=== PATIENT | female | born 1945 | race Caucasian/White ===

== ENCOUNTER → 2016-10-04 | Outpatient (CLI) | payer BC ==
[~2016-10-04] MED LIST: ALBUAER2 INH; ASCA500 PO; CEPH500C PO; CHOL100010 PO; CLBPO15 TOP; CLC100 PO; IBUP-103 PO; IBUP-1050 PO; LEVO100T7 PO; LEVO112T4 PO; LEVO1TAB33 PO; NYSTOIN TOP; PRED-301 PO; SYMIN INH; ULT50X PO; VNTHFA/IN INH
[2016-10-04 13:22] VITALS: BP 103/60; PULSE 98; TEMP 36.8; O2SAT 96
--- NOTE | 2016-10-04 17:01 | Radiation Oncology Follow-Up ---
Radiation Oncology Follow-Up Date of Visit Oct 04, 2016. Reason For Visit One-month follow-up Radiation Completion Date anus 05-18-2014, radioblation to lung 09-09-15, SBRT 12-12-15 & 08-29-16 Diagnosis (1) Anal cancer Status: Chronic Onset Date: 01/29/2014 Location: lung metastasis Histology Subtype: squamous cell carcinoma Stage: IV Permanent Comment: Rectal bleeding Findings an anal mass Status post biopsy revealing squamous cell carcinoma of the anus, stage [id number] stage II Status post completion of combined radiation and chemotherapy radiation completed 05/18/2014 received 6040 cGy Recheck biopsy benign 08/20/2014 Finding of lung metastasis 06/27/2015 Status post radioablation 09/09/2015 Finding of two right upper lobe nodules Status post completion of stereotactic body radiation therapy completed 2015 received 5000 cGy Recurrent disease initiation of chemotherapy Severe reaction with stomatitis, esophagitis, pancytopenia and hypokalemia Recheck CT 08/08/2016 reveals enlargement of the lingular pulmonary lesion Status post completion of stereotactic body radiation therapy to the left lingular pulmonary lesion. Radiation completed 08/29/2016 received 5000 cGy. Last Edited By: Dot Carlos on Aug 31, 2016 11:05 History of Present Illness is a 71-year-old female with a complex past medical history and multiple comorbidities. Earlier this year she noted blood on the toilet tissue and in the toilet bowl following bowel movements. Her bowels have always been very regular in the past with no prior history of rectal bleeding. She noted some change in the caliber of her stools. She had not had a screening colonoscopy. This has been discussed with her in the past but she has declined due to the severity of the prep. On 01/29/2014 she self-referred to Dr. Reyes Snowden a colorectal surgeon at [place]. At the time of his perianal exam there were no gross masses or lesions appreciated. However on rectal exam a 1-2 cm mass was noted in the anal canal along the left side. An anoscopy was performed which showed a friable ulcerated area in her left anal canal. This area was biopsied and found to be somewhat friable requiring packing of her anal canal. This was felt to be highly suspicious for an anal carcinoma. 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 Accession #: [id number]. The patient return to discuss these findings with Dr. Snowden on 02/05/2014. It was felt that a larger tissue sample was required to obtain an adequate tissue diagnosis. For that reason it was recommended that the patient be taken to the operating room. On 02/12/2014 she underwent an MRI of the pelvis for staging. The perirectal fascial planes appear intact with no evidence to suggest an infiltrative process of the perirectal fat. There is no significant perirectal scarlet changes. There is no pelvic or inguinal adenopathy. Patient was seen by Dr. Jomar Romero and on 02/15/2014 underwent a colonoscopy. This showed an ascending colon polyp which was sessile measuring 0.4 cm which was removed via hot snare. The previously identified anal cancer was again noted. The polypectomy of ascending colon polyp revealed a tubular adenoma. Case: [id number]. On March 01 patient underwent an exam under anesthesia and biopsy of the anal lesion. The biopsy tissue confirmed a moderately differentiated squamous cell carcinoma. Accession #: [id number]. A staging PET/ CT scan was ordered and performed on 02/17/2014. This study showed normal physiologic activity in the neck, chest and abdomen. In the pelvis no inguinal adenopathy was appreciated. No evidence of pelvic scarlet enlargement or uptake was appreciated. There was considerable focus of increased activity in the rectum with an SUV of 8.6. A true CT correlated mass was not identified. It was felt this could correlate with the area of prior biopsy and/or lesion. The decision was made to proceed with definitive chemoradiation. She was treated with IMRT to the anal lesion and lymph nodes. She started treatment on 03/25/2014 and completed on 05/17/2014. She did require 2 short treatment breaks or skin changes but was ultimately able to complete her her planned course of combined modality therapy. She has had episodes of abdominal discomfort and occasional tenderness and is also had episodes of rectal bleeding. These have now subsided. He was followed without evidence of local recurrence. A PET/CT scan was ordered for ongoing surveillance performed on 06/27/2015. Unfortunately this showed the interval development of FDG avid right-sided pulmonary nodules. There was a new FDG avid right lower lobe lesion measuring 1.1 cm with an SUV max of 3.8. A new 1 cm right upper lobe with central peribronchial nodule/node with SUV max of 4.9. There was a new FDG avid 0.5 cm right upper lobe pulmonary nodule with SUV max of 1.4. There were no FDG avid hepatic masses, adrenal masses or evidence of bony metastatic disease. The patient was seen by Dr. Dong Zee who underwent navigational fiberoptic bronchoscopy with radial ultrasound, transbronchial brushings, biopsies and washings. Transbronchial biopsies of the right upper lobe and right lower lobe however were negative for malignancy. Case: [id number]. The positive biopsy tissue was sent for review at [facility] and according to the patient they concurred with the diagnosis. The patient therefore underwent a CT-guided aspiration biopsy on 07/21/2015. Review of the tissue revealed malignant cells present. Given the clinical context these findings are felt to be consistent with a metastatic carcinoma from the patient's known anal primary. Case: [id number]. This tissue was reviewed at [facility]. They identified rare markedly atypical cells present, suspicious for malignancy. The slides were stained for P 40 and P 18 which stained be atypical cells strongly. This is supportive of HPV-related squamous cell carcinoma. However the cells were too few and scan to further characterize. The features however suggestive of metastasis from the patient's known and primary anal squamous cell carcinoma. [id number]. The patient was scheduled to be seen at [facility] by Dr. Stanton and by medical oncology. Dr. Stanton suggested that she hold off on her appointment with medical oncology. We have the patient seen by Dr. Pike for evaluation of an ablative therapy.. On September 09 she was scheduled for this procedure. A repeat CT scan of the chest was reportedly performed and the patient proceeded with the ablative therapy. She tolerated this treatment fairly well. She was followed with a CT scan of the chest with IV contrast on 10/14/2015. This showed pulmonary emphysema with no pleural effusion. An enlarging right upper lobe nodule measuring 1.7 cm was visualized on image number 1:15 out of 376. This measured 1.2 cm on a prior study performed in June 2015. Also noted was a 7 mm right upper lobe pulmonary nodule visualized on image 99 out of 376 that was similar to the prior study. A 1.3 cm right lower lobe pulmonary nodule was again noted. This demonstrated a linear track through the nodule with radiolucent halo and thin surrounding capsule consistent with prior nodular ablation. No mediastinal lymphadenopathy is seen. Upper abdomen is unremarkable. No lytic or blastic bony lesions are seen in the visualized chest and upper abdomen. Based on this report of an enlarging right upper lobe nodule that we were asked to see this patient for evaluation of the radiation options. Copies of these images have been sent to Dr. Stanton for his evaluation and hopefully also been forwarded to for his review on the option of additional ablative therapy. Final decision was that these 2 right upper lobe lesions would best be treated with stereotactic body radiation therapy. She returned to the high pressure cleaner and fiducial markers were placed. She underwent SBRT to the right lung lesions. This was completed 12/12/2015. She received 5000 cGy. She returned to medical oncology to discuss salvage chemotherapy. She sought second opinion to at [facility]. There was discussion of possible clinical trial. Ultimately decision was made to treat with 5-FU and cisplatin. This was a reduced dose due to prior mouth irritation with initial treatment. She unfortunately had a severe reaction to chemotherapy she developed mucositis and esophagitis. She had pancytopenia and hypokalemia. She was admitted and was hospitalized over a two-week time. She feels that the chemotherapy made her pre-existing neuropathy much worse. She was unable to keep food and had significant weight loss. Her usual weight is 123 pounds and she went down to 107. Since discharge she is steadily recuperating and is now gaining weight and is up to 115 pounds. She is continued follow-up with medical oncology. Due to her previous severe reaction to chemotherapy she did not wish to undergo any further treatment with chemotherapy. They did present to her treatment with nivolumab. She was in agreement to try this medication. She has been receiving this since May and it is given every 2 weeks. She does not have any complaints about the medication. The chemotherapy was a concern to her because of the potential effects on her already existing neuropathy. With this medication she does have a mild increase in shortness of breath. This is nothing severe. This does not keep her from her usual activities. She has now undergone recheck scanning. She is here for review of the studies. This study showed stable disease other than one lesion of the left lingula. Radiation therapy was stereotactic treatment was recommended. Status post completion of radiation therapy 08/29/2016 received 5000 cGy. Interim History She has been doing well over the past month. She denies any change in respiratory status. Her energy levels have improved. 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 She did see Dr. Vera in regards to the abnormality on the pelvic CT. He did not feel that she needed to undergo an endometrial biopsy. She does have some irregularity of her bowel movements. She takes Metamucil daily area and there is some difficulty with control of the sphincter. She denies any rectal bleeding. She has noted no masses in the perianal area. She's had no irritation of the skin. Her asthma is under control. She continues on her regular daily dose of prednisone. Allergies Coded Allergies: Amoxicillin (Verified Allergy, Severe, SLIGHT TONGUE SWELLING, 02/15/16) Home Medications Scheduled Ascorbic Acid (Vitamin C), 1 TAB PO DAILY Budesonide/Formoterol Fumarate (Symbicort 160-4.5 Mcg/Act), 2 PUFFS INH BID Cholecalciferol (Vitamin D), 2,000 UNITS PO DAILY Levothyroxine Sodium (Levothyroxine Sodium), 1 TAB PO DAILY Prednisone (Prednisone), 7.5 MG PO QAM Scheduled PRN Albuterol (Ventolin), 2 PUFFS INH Q4H PRN for SOB/Wheezing Review of Systems Gastrointestinal: Symptoms: WNL Oral: Symptoms: No Problems Respiratory: Symptoms: SOB With Exertion Urinary: Symptoms: Nocturia Comments: nocturia times 2 Skin: Other Skin Symptoms: " skin gets itchy " Physical Exam Vital Signs Date Time Temp Pulse Resp B/P Pulse Ox O2 Delivery O2 Flow Rate FiO2 10/04/16 13:22 36.8 98 20 103/60 96 Pain: Side: Bilateral Patient Pain Scale: 0 - 10 Initial Pain Intensity: 0.0 Fatigue: None General Appearance: no apparent distress Eyes: normal inspection, EOMI ENT: normal ENT inspection, hearing grossly normal Neck: no adenopathy Respiratory/Chest: lungs clear, no respiratory distress, no accessory muscle use, + decreased breath sounds Cardiovascular: regular rate, rhythm, no gallop, no murmur Abdomen: non tender, soft Anal / Rectum: There are no visible lesions in the perianal area. She has 1 small hemorrhoid. There is no telangiectasia. Mild hyperpigmentation. Extremities: no pedal edema Neurologic/Psychiatric: alert, normal mood/affect Skin: warm/dry Laboratory Studies Test 08/13/16 12:42 09/07/16 15:41 09/21/16 10:36 Magnesium Level 2.1 mg/dl (1.8-2.4) 2.1 mg/dl (1.8-2.4) Thyroid Stimulating Hormone (TSH) 1.340 uIu/ml (0.300-4.500) 2.080 uIu/ml (0.300-4.500) White Blood Count 5.34 K/uL (4.8-10.8) 5.97 K/uL (4.8-10.8) Red Blood Count 3.58 M/uL (4.2-5.4) 3.70 M/uL (4.2-5.4) Hemoglobin 11.2 g/dL (12.0-16.0) 11.8 g/dL (12.0-16.0) Hematocrit 34.5 % (37-47) 36.7 % (37-47) Mean Corpuscular Volume 96.4 fL (80-100) 99.2 fL (80-100) Mean Corpuscular Hemoglobin 31.3 pg (25-34) 31.9 pg (25-34) Mean Corpuscular Hemoglobin Concent 32.5 g/dl (32-36) 32.2 g/dl (32-36) Platelet Count 172 K/uL (130-400) 183 K/uL (130-400) Mean Platelet Volume 8.9 fL (7.4-10.4) 8.9 fL (7.4-10.4) Neutrophils (%) (Auto) 79.4 % 72.5 % Lymphocytes (%) (Auto) 13.1 % 12.6 % Monocytes (%) (Auto) 4.1 % 5.7 % Eosinophils (%) (Auto) 2.1 % 6.9 % Basophils (%) (Auto) 1.1 % 2.0 % Neutrophils # (Auto) 4.24 K/uL (1.4-6.5) 4.33 K/uL (1.4-6.5) Lymphocytes # (Auto) 0.70 K/uL (1.2-3.4) 0.75 K/uL (1.2-3.4) Monocytes # (Auto) 0.22 K/uL (0.11-0.59) 0.34 K/uL (0.11-0.59) Eosinophils # (Auto) 0.11 K/uL (0-0.5) 0.41 K/uL (0-0.5) Basophils # (Auto) 0.06 K/uL (0-0.2) 0.12 K/uL (0-0.2) RDW Standard Deviation 55.2 fL (36.4-46.3) 56.9 fL (36.4-46.3) RDW Coefficient of Variation 15.6 % (11.5-14.5) 15.7 % (11.5-14.5) Immature Granulocyte % (Auto) 0.2 % 0.3 % Immature Granulocyte # (Auto) 0.01 K/uL (0.00-0.02) 0.02 K/uL (0.00-0.02) Sodium Level 144 mmol/L (136-145) 145 mmol/L (136-145) Potassium Level 3.8 mmol/L (3.5-5.1) 3.8 mmol/L (3.5-5.1) Chloride Level 108 mmol/L (98-107) 110 mmol/L (98-107) Carbon Dioxide Level 26 mmol/L (21-32) 25 mmol/L (21-32) Anion Gap 10.0 mmol/L (3-11) 10.0 mmol/L (3-11) Blood Urea Nitrogen 19 mg/dl (7-18) 18 mg/dl (7-18) Creatinine 0.97 mg/dl (0.60-1.20) 1.00 mg/dl (0.60-1.20) Est Creatinine Clear Calc Drug Dose 48.2 ml/min 46.8 ml/min Estimated GFR () 68.6 66.1 Estimated GFR (Non- 59.2 57.0 BUN/Creatinine Ratio 20.0 (10-20) 18.1 (10-20) Random Glucose 101 mg/dl (70-99) 94 mg/dl (70-99) Calcium Level 9.2 mg/dl (8.5-10.1) 9.2 mg/dl (8.5-10.1) Total Bilirubin 0.3 mg/dl (0.2-1) 0.5 mg/dl (0.2-1) Aspartate Amino Transferase (AST) 33 U/L (15-37) 28 U/L (15-37) Alanine Aminotransferase (ALT) 32 U/L (12-78) 31 U/L (12-78) Alkaline Phosphatase 72 U/L (45-117) 61 U/L (45-117) Total Protein 6.8 gm/dl (6.4-8.2) 6.9 gm/dl (6.4-8.2) Albumin 3.5 gm/dl (3.4-5.0) 3.7 gm/dl (3.4-5.0) Globulin 3.3 gm/dl (2.5-4.0) 3.2 gm/dl (2.5-4.0) Albumin/Globulin Ratio 1.1 (0.9-2) 1.2 (0.9-2) Assessment & Plan Plan: We'll schedule for recheck scanning. A CT of the chest, abdomen, and pelvis will be ordered for the week of November 05. She'll be notified as to results. Continue regular follow-up with medical oncology and Dr. Emmanuel. She' ll otherwise return to our office in 6 months. Total Time In Follow-Up I spent 20 minutes speaking to the patient performing examination. I spent 15 minutes reviewing information in completing this note. Copy To David Cavazos D.O.; Dong Emmanuel M.D.
== END | disposition home or self-care (01) ==
LOC: C.ONC 13:14
PROVIDERS: ATTEND Radiology Radiation Oncology
DX: Z08 Encounter for follow-up examination after completed treatment for malignant neoplasm (principal); Z92.3 Personal history of irradiation; Z85.048 Personal history of other malignant neoplasm of rectum, rectosigmoid junction, and anus

== ENCOUNTER → 2016-11-07 | Outpatient (CLI) | payer BC ==
[~2016-11-07] MED LIST changes: +OPTIRAY 320 IV PRN
--- NOTE | 2016-11-07 09:13 | DIAGNOSTIC IMAGING REPORT ---
ABDOMEN AND PELVIS CT WITH IV AND ORAL CONTRAST CT DOSE: HISTORY: HX ANAL CA, MALIGNANCY TO LUNG TECHNIQUE: Multiaxial CT images of the abdomen and pelvis were performed following the use of intravenous and oral contrast. COMPARISON STUDY: 08/08/2016 FINDINGS: Unchanging pleural based nodule right base laterally. No additional basilar parenchymal nodules are present. The appearance of the abdomen pelvis is unchanged in the prior exam. Post therapeutic changes to the perianal soft tissues are again noted. Bowel pattern is nonobstructive. Liver spleen and pancreas remain unremarkable. Nonobstructing right renal calcification is unaltered. Degenerative changes of the osseous structures are present and nonprogressive. No lytic or blastic process is appreciated. IMPRESSION: Stable exam with no change in the prior study. Unchanging right basilar pulmonary nodularity. No acute process in the abdomen or pelvis with stable post therapeutic change of the perianal soft tissues Electronically signed by: Roland De La Vega M.D. 11/07/2016 9:12 AM Dictated Date/Time: 11/07/2016 9:08 AM
--- NOTE | 2016-11-07 09:20 | DIAGNOSTIC IMAGING REPORT ---
CHEST CT WITH CONTRAST CT DOSE: 481.92 mGy.cm HISTORY: Renal carcinoma HX ANAL CA, SECONDARY ENOC NCY TO LUNG TECHNIQUE: Multiaxial CT images of the chest were performed following the intravenous administration of contrast. COMPARISON: 08/08/2016 FINDINGS: Unchanging apical fibrotic change. Minimal scattered micronodularity is nonprogressive. The 12 mm nodule of the lingula has a current maximum dimension 9 mm. Nodular density peripheral aspect right lower lobe is essentially unchanged at 11 mm maximum dimension. It is not appear to be new or progressive a parenchymal nodularity. Mediastinal and hilar regions show no significant scarlet change. IMPRESSION: Unchanged pulmonary metastatic change compared to the prior study. 2. No evidence for new interval or progressive change. 3. Unchanging emphysematous and apical fibrotic change Electronically signed by: Roland De La Vega M.D. 11/07/2016 9:18 AM Dictated Date/Time: 11/07/2016 9:15 AM
== END | disposition home or self-care (01) ==
LOC: C.CTS 08:32
PROVIDERS: ATTEND Radiology Radiation Oncology
DX: C78.01 Secondary malignant neoplasm of right lung (principal); Z85.048 Personal history of other malignant neoplasm of rectum, rectosigmoid junction, and anus

== ENCOUNTER 2016-11-18 09:33 | Emergency (ER) | payer BC, OTHER ==
[~2016-11-18] VITALS: Ht 180.3 cm; Wt 55.6 kg
[~2016-11-18 09:33] MED LIST changes: -CEPH500C PO; -CLBPO15 TOP; -CLC100 PO; -IBUP-103 PO; -IBUP-1050 PO; -LEVO112T4 PO; -LEVO1TAB33 PO; -NYSTOIN TOP; -OPTIRAY 320 IV PRN; -ULT50X PO; -VNTHFA/IN INH
[2016-11-18 09:38] VITALS: TEMP 36.6; Ht 180.3 cm; Wt 55.6 kg
[2016-11-18] MEDS ORDERED: LEVO112T4 PO (10:19)
[2016-11-18] MEDS ORDERED: VNTHFA/IN INH (10:19)
[2016-11-18] MEDS ORDERED: NYSTOIN TOP (10:20)
[2016-11-18 10:27] LABS: URINE APPEARANCE CLEAR (CLEAR); URINE BILIRUBIN NEG (NEG); URINE COLOR YELLOW; URINE NITRITE NEG (NEG); URINE SPECIFIC GRAVITY <= 1.005 (1.000-1.030); UROBILINOGEN NEG (NEG)
[2016-11-18 10:31] LABS: BASO % 1.2 %; BASO ABS # 0.08 K/uL (0-0.2); COMPLETE YES; HEMATOCRIT 37.9 % (37-47); IG% 0.3 %; LYMPH % 11.6 %; LYMPH ABS # 0.79 K/uL (1.2-3.4); MEAN CELL VOLUME 97.2 fL (80-100); MEAN CORPUSCULAR HEMOGLOBIN 31.8 pg (25-34); MEAN CORPUSCULAR HGB CONC 32.7 g/dl (32-36); MONO % 4.5 %; NEUT % 75.4 %; PLATELET COUNT 209 K/uL (130-400); WHITE BLOOD COUNT 6.83 K/uL (4.8-10.8)
[2016-11-18 10:37] LABS: MANUAL MICROSCOPIC REQUIRED? NO; REVIEW REQ? NO; URINE EPITHELIAL CELL AUTO 0-5 /lpf (0-5); ZZUR CULT IF INDIC CLEAN CATCH NO
[2016-11-18 10:47] LABS: BUN/CREATININE RATIO 20.5 (10-20); CALCIUM 9.4 mg/dl (8.5-10.1); CREATININE 0.95 mg/dl (0.60-1.20); POTASSIUM 3.9 mmol/L (3.5-5.1)
[2016-11-18] MEDS ORDERED: CEPHALEXIN MONOHYDRATE 250 MG CAP PO ONE (11:45)
[2016-11-18] MEDS ORDERED: CEPH500C PO (11:48)
[2016-11-18 12:10] VITALS: BP 157/67; PULSE 80; O2SAT 97
--- NOTE | 2016-11-18 16:49 | EMERGENCY ROOM VISIT NOTE ---
History Report prepared by Bambi: Lusi Jauregui Under the Supervision of: Dr. David Sky D.O. First contact with patient: 09:45 Chief Complaint: URINARY SYMPTOMS Stated Complaint: UTI, DEHYDRATED Nursing Triage Summary: Triage ntoe: pt reports "when i urinate it takes about 5 seconds to get started and it is painful when i start but then when i am urinating it is not painful." pt reports urinary frequency. pt reports "i think i may be dehydrated i am lightheaded." History of Present Illness The patient is a 71 year old female who presents to the Emergency Room with complaints of urinary symptoms that began 1 week ago. She was having irritation to her vaginal area. She saw Dr. Acosta and was given a cream which helped. However, she than began to have slow starting urination that only cause her pain before the stream started. She is also urinating more frequently. She believes she may have a urinary tract infection. The patient was diagnosed with anal cancer three years ago that she is currently getting treatment for. She has only had one UTI before, but she does not remember what it felt like. She is mildly lightheaded. Patient denies headache, change in vision, fevers, chest pain, shortness of breath, nausea, vomiting, diarrhea, and melena. She denies feeling like she is going to pass out or if the room is spinning. Her last therapy for her cancer was two weeks ago. She denies any new weakness or numbness in arms or legs. Source of History: patient Onset: 1 week ago Position: other () Symptom Intensity: mild Quality: burning Timing: intermittent Associated Symptoms: + urinary symptoms, No SOB, No abdominal pain, No chest pain, No chills, No cough, No fevers, No headache, No melena, No nausea, No sorethroat, No vomiting Review of Systems See HPI for pertinent positives & negatives. A total of 10 systems reviewed and were otherwise negative. Past Medical & Surgical Medical Problems: (1) Anal cancer (2) Asthma (3) Mucositis (ulcerative) due to antineoplastic therapy (4) Volume depletion Family History Diabetes mellitus FH: gallbladder disease FH: heart disease Kidney stones Social History Smoking Status: Current Every Day Smoker Alcohol Use: none Drug Use: none Marital Status: Housing Status: lives alone Occupation Status: employed Current/Historical Medications Scheduled Budesonide/Formoterol Fumarate (Symbicort 160-4.5 Mcg/Act), 2 PUFFS INH BID Cephalexin Monohydrate (Keflex), 500 MG PO QID Levothyroxine Sodium (Levothyroxine Sodium), 1 TAB PO DAILY Nystatin-Triamcinolone (Nystatin/Triamcinolone), 1 APPLN TOP TID Prednisone (Prednisone), 7.5 MG PO QAM Scheduled PRN Albuterol Hfa (Ventolin Hfa), 2 PUFFS INH Q4 PRN for SOB/Wheezing Allergies Coded Allergies: Amoxicillin (Verified Allergy, Severe, SLIGHT TONGUE SWELLING, 02/15/16) Physical Exam Vital Signs Date Time Temp Pulse Resp B/P Pulse Ox O2 Delivery O2 Flow Rate FiO2 11/18/16 12:10 80 18 157/67 97 Room Air 11/18/16 11:00 73 18 147/73 97 Room Air 11/18/16 09:38 36.6 80 18 160/89 97 Room Air Physical Exam GENERAL: Ambulates without difficulty. Sitting up in bed. Alert, well appearing , well nourished, no distress, non-toxic EYE EXAM: normal conjunctiva OROPHARYNX: no exudate, no erythema, lips, buccal mucosa, and tongue normal and mucous membranes are moist NECK: supple, no nuchal rigidity, no adenopathy, non-tender LUNGS: Clear to auscultation. Normal chest wall mechanics HEART: no murmurs, S1 normal and S2 normal ABDOMEN: abdomen soft, non-tender, normo-active bowel sounds, no masses, no rebound or guarding. BACK: Back is symmetrical on inspection and there is no deformity, no midline tenderness, no CVA tenderness. SKIN: no rashes and no bruising UPPER EXTREMITIES: upper extremities are grossly normal. LOWER EXTREMITIES: No pitting edema. NEURO EXAM: Normal sensorium, cranial nerves II-XII intact, normal speech, no gross weakness of arms, no gross weakness of legs. Ambulates without difficulty. Medical Decision & Procedures Laboratory Results 11/18/16 10:15 Red Blood Count 3.90, Mean Corpuscular Volume 97.2, Mean Corpuscular Hemoglobin 31.8, Mean Corpuscular Hemoglobin Concent 32.7, Mean Platelet Volume 9.0, Neutrophils (%) (Auto) 75.4, Lymphocytes (%) (Auto) 11.6, Monocytes (%) (Auto) 4.5, Eosinophils (%) (Auto) 7.0, Basophils (%) (Auto) 1.2, Neutrophils # (Auto) 5.15, Lymphocytes # (Auto) 0.79, Monocytes # (Auto) 0.31, Eosinophils # (Auto) 0.48, Basophils # (Auto) 0.08 11/18/16 10:15 Test 11/18/16 10:15 White Blood Count 6.83 K/uL (4.8-10.8) Red Blood Count 3.90 M/uL (4.2-5.4) Hemoglobin 12.4 g/dL (12.0-16.0) Hematocrit 37.9 % (37-47) Mean Corpuscular Volume 97.2 fL (80-100) Mean Corpuscular Hemoglobin 31.8 pg (25-34) Mean Corpuscular Hemoglobin Concent 32.7 g/dl (32-36) Platelet Count 209 K/uL (130-400) Mean Platelet Volume 9.0 fL (7.4-10.4) Neutrophils (%) (Auto) 75.4 % Lymphocytes (%) (Auto) 11.6 % Monocytes (%) (Auto) 4.5 % Eosinophils (%) (Auto) 7.0 % Basophils (%) (Auto) 1.2 % Neutrophils # (Auto) 5.15 K/uL (1.4-6.5) Lymphocytes # (Auto) 0.79 K/uL (1.2-3.4) Monocytes # (Auto) 0.31 K/uL (0.11-0.59) Eosinophils # (Auto) 0.48 K/uL (0-0.5) Basophils # (Auto) 0.08 K/uL (0-0.2) RDW Standard Deviation 50.8 fL (36.4-46.3) RDW Coefficient of Variation 14.2 % (11.5-14.5) Immature Granulocyte % (Auto) 0.3 % Immature Granulocyte # (Auto) 0.02 K/uL (0.00-0.02) Urine Color YELLOW Urine Appearance CLEAR (CLEAR) Urine pH 7.0 (4.5-7.5) Urine Specific [place] <= 1.005 (1.000-1.030) Urine Protein NEG (NEG) Urine Glucose (UA) NEG (NEG) Urine Ketones NEG (NEG) Urine Occult Blood 1+ (NEG) Urine Nitrite NEG (NEG) Urine Bilirubin NEG (NEG) Urine Urobilinogen NEG (NEG) Urine Leukocyte Esterase NEG (NEG) Urine WBC (Auto) 1-5 /hpf (0-5) Urine RBC (Auto) 0-4 /hpf (0-4) Urine Hyaline Casts (Auto) 0 /lpf (0-5) Urine Epithelial Cells (Auto) 0-5 /lpf (0-5) Urine Bacteria (Auto) NEG (NEG) Anion Gap 10.0 mmol/L (3-11) Est Creatinine Clear Calc Drug Dose 48.4 ml/min Estimated GFR () 70.3 Estimated GFR (Non- 60.7 BUN/Creatinine Ratio 20.5 (10-20) Calcium Level 9.4 mg/dl (8.5-10.1) Total Bilirubin 0.4 mg/dl (0.2-1) Direct Bilirubin 0.1 mg/dl (0-0.2) Aspartate Amino Transf (AST/SGOT) 29 U/L (15-37) Alanine Aminotransferase (ALT/SGPT) 29 U/L (12-78) Alkaline Phosphatase 61 U/L (45-117) Total Protein 7.1 gm/dl (6.4-8.2) Albumin 3.7 gm/dl (3.4-5.0) Laboratory results per my review. Medications Administered Medications (Trade) Dose Ordered Sig/Moiz Route Start Time Stop Time Status Last Admin Dose Admin Cephalexin Monohydrate (Keflex Cap) 500 mg NOW ONCE PO 11/18/16 11:45 11/18/16 11:46 DC 11/18/16 11:45 500 MG Heparin Sodium (Porcine) (Heparin 100 Unit/ml 5ml Flush) 5 ml STK-MED ONCE .ROUTE 11/18/16 12:04 11/18/16 12:07 DC 11/18/16 12:04 5 ML ED Course ED COURSE: Vital signs were reviewed and showed hypertension. The patients medical record was reviewed The above diagnostic studies were performed and reviewed. ED treatments and interventions as stated above. 0945: The patient was evaluated in room B2. A complete history and physical examination was performed. 1140: I reassessed the patient at this time. She is completely back to her baseline. She has taken Keflex in the past. She would like to try that. 1145: Ordered Keflex Cap 500 mg PO 1152: Upon reevaluation, the patient is resting.I discussed my findings with the patient and she understands and agrees with the treatment plan. The patient remained stable while under my care. The patient appeared well at the time of discharge. Medical Decision Differential diagnoses includes but is not limited to gastritis, peptic ulcer disease, GERD, gallbladder disease, pancreatitis, small bowel obstruction, acute coronary syndrome, pericarditis, ischemic bowel, irritable bowel disease, irritable bowel syndrome, appendicitis, diverticulitis, malignancy, hernia, urinary tract infection, torsion, /ectopic , perforation, trauma, infectious. Patient is a 71-year-old female who presents the ER for urinary frequency associated with trouble starting her stream. She notes that this has been present for the past 4 hours. She denies any other complaints with the exception of feeling a little lightheaded. Labs show no significant leukocytosis or anemia. BMP along with LFTs, bilirubin were unremarkable. She has no abdominal pain. UA was clean with exception of slight hematuria. With her symptoms she was placed on Keflex instructed follow-up with her primary care doctor. She recently had a pelvic performed and notes that her irritation vaginally area is improving. Pelvic was repeated. She was given a small bolus of fluids that she has that she feels 100% better and back to her insulin. Patient was treated prophylactically with Keflex and was discharged to follow- up with her primary care doctor. Discussed with parent concerning signs and symptoms to watch out for. Parent was instructed to follow up with their PCP and discussed with the parent their option to return to the ED at anytime for persistent or worsening symptoms. The appropriate anticipatory guidance and out- patient management, including indications for return to the emergency department , were explained at length to the parent and understood. Impression Primary Impression: Symptoms involving urinary system Departure Information Dispostion Home / Self-Care Prescriptions Cephalexin Monohydrate (Keflex) 500 Mg Cap 500 MG PO QID, #12 CAP Prov: David Sky, 11/18/16 Referrals Dong Emmanuel M.D. (PCP) Forms HOME CARE DOCUMENTATION FORM, IMPORTANT VISIT INFORMATION Patient Instructions ED Dysuria Uncertain Cause, [facility] Additional Instructions Please follow up with your primary care doctor with in the next 24 hours. Any worsening of your symptoms, please return to the ED immediately. This includes fevers greater than 100.4, worsening pain, persistent nausea vomiting, weakness or numbness in arms or legs, or any other concerning signs or symptoms from your standpoint.
[2017-03-27] MEDS ORDERED: IBUP-103 PO (08:27)
[2017-04-25] MEDS ORDERED: CLBPO15 TOP (08:40)
== END 2016-11-18 12:20 | disposition home or self-care (01) ==
LOC: C.EDB 09:35
DX: R39.9 Unspecified symptoms and signs involving the genitourinary system (principal); C21.0 Malignant neoplasm of anus, unspecified; J45.909 Unspecified asthma, uncomplicated; F17.200 Nicotine dependence, unspecified, uncomplicated

== ENCOUNTER → 2017-02-11 | Outpatient (CLI) | payer BC ==
[~2017-02-11] MED LIST changes: -ALBUAER2 INH; -ASCA500 PO; +CEPH500C PO; -CHOL100010 PO; +CLBPO15 TOP; +CLC100 PO; +IBUP-103 PO; +IBUP-1050 PO; -LEVO100T7 PO; +LEVO112T4 PO; +LEVO1TAB33 PO; +NYSTOIN TOP; +ULT50X PO; +VNTHFA/IN INH
--- NOTE | 2017-02-11 11:48 | DIAGNOSTIC IMAGING REPORT ---
CHEST 2 VIEWS ROUTINE CLINICAL HISTORY: ANAL CARCINOMA neoplasm COMPARISON STUDY: 02/15/2016 FINDINGS: Potential recurrent nodule right suprahilar region. Possible additional nodular density pulmonary apical regions. Subsegmental atelectatic change left infrahilar region. IMPRESSION: Potential developing pulmonary nodularity associated with subsegmental atelectatic change. CT chest is recommended as follow-up. Electronically signed by: Roland De La Vega M.D. 02/11/2017 11:47 AM Dictated Date/Time: 02/11/2017 11:44 AM
== END | disposition home or self-care (01) ==
LOC: C.RAD 11:24
PROVIDERS: ATTEND Nurse Practitioner Family
DX: C21.0 Malignant neoplasm of anus, unspecified (principal)

== ENCOUNTER → 2017-03-06 | Outpatient (CLI) | payer BC ==
[~2017-03-06] MED LIST changes: +OPTIRAY 320 IV PRN
--- NOTE | 2017-03-06 10:14 | DIAGNOSTIC IMAGING REPORT ---
ABDOMEN AND PELVIS CT WITH IV AND ORAL CONTRAST CT DOSE: HISTORY: Lung carcinoma HX LUNG CA/ANAL CA C78.02, C78.01, C21.0 TECHNIQUE: Multiaxial CT images of the abdomen and pelvis were performed following the use of intravenous and oral contrast. COMPARISON STUDY: 2016 FINDINGS: Nodular density right base considered stable. No new basilar pulmonary nodules. Liver is uniform. Spleen pancreas are unremarkable. Small right renal cortical cyst unchanged. Kidneys enhance uniformly. Several small subcentimeter renal cortical cysts also stable. Nonobstructing lower pole right renal calcification unchanged. Nonobstructive bowel pattern. No significant abdominal or pelvic scarlet pathology. Slight bulkiness of the uterine cervix unchanged. Bladder is midline. It is relatively collapsed. Degenerative change of the osseous structures considered stable. IMPRESSION: 1. Stable evaluation of the abdomen and pelvis. 2. Unchanging nodularity right lung base. 3. No new or progressive lesion within the abdomen or pelvis. Electronically signed by: Roland De La Vega M.D. 03/06/2017 10:12 AM Dictated Date/Time: 03/06/2017 10:05 AM
--- NOTE | 2017-03-06 10:18 | DIAGNOSTIC IMAGING REPORT ---
CT SCAN OF THE CHEST WITH IV CONTRAST CLINICAL HISTORY: Lung cancer. Anal cancer. COMPARISON STUDY: Chest CT scans dated 11/07/2016 and 07/23/2014. TECHNIQUE: Following the IV administration of 117 of Optiray 320, CT scan of the chest was performed from the thoracic inlet to the upper abdomen. Images are reviewed in the axial, sagittal, and coronal planes. IV contrast was administered without complication. Automated dose control exposure was utilized. The examination is degraded by streak artifact from the left arm which could not be elevated above the chest. CT DOSE: 445.74 mGy.cm FINDINGS: Thyroid: Atrophic versus surgically absent. Thoracic aorta: There is mild atherosclerotic calcification of the thoracic aorta, which is normal in caliber and demonstrates 4-vessel variant arch anatomy. No dissection is seen. A right subclavian central venous infusion port is in place. Pulmonary vasculature: The pulmonary trunk is normal in caliber. There are no filling defects identified in the central pulmonary vessels to indicate pulmonary was. Note that this examination was not protocoled for evaluation of the pulmonary arteries. Heart: The heart is top normal in size and configuration, and without pericardial effusion. The coronary arteries are densely calcified. Lungs and pleural spaces: There is advanced emphysema and biapical scarring. No airspace consolidation or pleural effusion is identified. 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 A spiculated nodule abutting the pleural surface at the right lung base on image #204 is similar appearance to the 11/07/2016 examination and measures up to 1.5 cm. A 4 mm nodule in the superior segment of the left lower lobe on image #93 is unchanged. There is atelectasis/scarring identified in the lingula at the site of the previously identified nodule. The nodule itself is not clearly visualized. A metallic fiducial is again seen in the right upper lobe within a region of irregular soft tissue density. This is seen on axial image #95 and measures approximately 4 x 2 cm. This has significantly increased from 11/07/2016 appears to track along the bronchovascular bundles. Secretions are noted within the trachea and the left mainstem bronchus. Mediastinum: There is no mediastinal lymphadenopathy. Shanna: There are calcified hilar lymph nodes. No hilar adenopathy is seen. Axillae: There is no axillary lymphadenopathy. Upper abdomen: A punctate nonobstructing left renal calculus is noted. Partially imaged upper abdominal viscera is grossly normal in appearance. Bony thorax: The skeletal structures are osteopenic. There is degenerative change and hyperkyphosis in the thoracic spine. There are mild compression deformity is at T5, T8, T9, and T10. A large calcified posterior disc fragment is suggested at T10-T11. This may contribute to acquired compromise of the central canal. No lytic or blastic lesions are identified. Soft tissues: The patient is cachectic. IMPRESSION: 1. There is increasing irregular soft tissue in the right upper lobe around a metallic fiducial when compared to 11/07/2016. This appears to track centrally along the bronchovascular bundles. Although this could potentially represent radiation fibrosis if there has been interval radiation treatment the appearance is concerning for progression of disease. 2. There is linear atelectasis versus scarring/fibrosis identified in the lingula at the site of the previously characterized nodule. The lingular lesion seen previously is not visualized. 3. A right lower lobe lesion has not significantly changed from previous. 4. Advanced emphysema. There is no airspace consolidation typical for pneumonia or pleural effusion. 5. There is no mediastinal or hilar adenopathy. 6. Additional findings as above. Electronically signed by: Milton Sherman M.D. 03/06/2017 10:17 AM Dictated Date/Time: 03/06/2017 10:04 AM
== END | disposition home or self-care (01) ==
LOC: C.CTS 09:40
PROVIDERS: ATTEND Physician Assistant Medical
DX: C78.02 Secondary malignant neoplasm of left lung (principal); C21.0 Malignant neoplasm of anus, unspecified; C78.01 Secondary malignant neoplasm of right lung; J43.9 Emphysema, unspecified; I70.0 Atherosclerosis of aorta

== ENCOUNTER → 2017-03-08 | Outpatient (CLI) | payer BC ==
[~2017-03-08] MED LIST changes: -OPTIRAY 320 IV PRN
[2017-03-08 10:13] VITALS: BP 136/84; PULSE 83; TEMP 36.8; O2SAT 96
--- NOTE | 2017-03-08 12:57 | Radiation Oncology Follow-Up ---
Radiation Oncology Follow-Up Date of Visit Mar 08, 2017. Reason For Visit 6 month follow-up and for results of CT evaluation Radiation Completion Date anus 05-18-2014 , radioblation to lung 09-09-2015 & SBRT 12-12-15 & 08-29-16 Diagnosis (1) Anal cancer Status: Chronic Onset Date: 01/29/2014 Location: lung metastasis Histology Subtype: squamous cell carcinoma Stage: IV Permanent Comment: Rectal bleeding Findings an anal mass Status post biopsy revealing squamous cell carcinoma of the anus, stage [id number] stage II Status post completion of combined radiation and chemotherapy radiation completed 05/18/2014 received 6040 cGy Recheck biopsy benign 08/20/2014 Finding of lung metastasis 06/27/2015 Status post radioablation 09/09/2015 Finding of two right upper lobe nodules Status post completion of stereotactic body radiation therapy completed 2015 received 5000 cGy Recurrent disease initiation of chemotherapy Severe reaction with stomatitis, esophagitis, pancytopenia and hypokalemia Recheck CT 08/08/2016 reveals enlargement of the lingular pulmonary lesion Status post completion of stereotactic body radiation therapy to the left lingular pulmonary lesion. Radiation completed 08/29/2016 received 5000 cGy. Last Edited By: Dot Carlos on Aug 31, 2016 11:05 History of Present Illness is a 71-year-old female with a complex past medical history and multiple comorbidities. Earlier this year she noted blood on the toilet tissue and in the toilet bowl following bowel movements. Her bowels have always been very regular in the past with no prior history of rectal bleeding. She noted some change in the caliber of her stools. She had not had a screening colonoscopy. This has been discussed with her in the past but she has declined due to the severity of the prep. On 01/29/2014 she self-referred to Dr. Reyes Snowden a colorectal surgeon at [facility]. At the time of his perianal exam there were no gross masses or lesions appreciated. However on rectal exam a 1-2 cm mass was noted in the anal canal along the left side. An anoscopy was performed which showed a friable ulcerated area in her left anal canal. This area was biopsied and found to be somewhat friable requiring packing of her anal canal. This was felt to be highly suspicious for an anal carcinoma. 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 Accession #: [id number]. The patient return to discuss these findings with Dr. Snowden on 02/05/2014. It was felt that a larger tissue sample was required to obtain an adequate tissue diagnosis. For that reason it was recommended that the patient be taken to the operating room. On 02/12/2014 she underwent an MRI of the pelvis for staging. The perirectal fascial planes appear intact with no evidence to suggest an infiltrative process of the perirectal fat. There is no significant perirectal scarlet changes. There is no pelvic or inguinal adenopathy. Patient was seen by Dr. Jomar Romero and on 02/15/2014 underwent a colonoscopy. This showed an ascending colon polyp which was sessile measuring 0.4 cm which was removed via hot snare. The previously identified anal cancer was again noted. The polypectomy of ascending colon polyp revealed a tubular adenoma. Case: [id number]. On March 01 patient underwent an exam under anesthesia and biopsy of the anal lesion. The biopsy tissue confirmed a moderately differentiated squamous cell carcinoma. Accession #: [id number]. A staging PET/ CT scan was ordered and performed on 02/17/2014. This study showed normal physiologic activity in the neck, chest and abdomen. In the pelvis no inguinal adenopathy was appreciated. No evidence of pelvic scarlet enlargement or uptake was appreciated. There was considerable focus of increased activity in the rectum with an SUV of 8.6. A true CT correlated mass was not identified. It was felt this could correlate with the area of prior biopsy and/or lesion. The decision was made to proceed with definitive chemoradiation. She was treated with IMRT to the anal lesion and lymph nodes. She started treatment on 03/25/2014 and completed on 05/17/2014. She did require 2 short treatment breaks or skin changes but was ultimately able to complete her her planned course of combined modality therapy. She has had episodes of abdominal discomfort and occasional tenderness and is also had episodes of rectal bleeding. These have now subsided. He was followed without evidence of local recurrence. A PET/CT scan was ordered for ongoing surveillance performed on 06/27/2015. Unfortunately this showed the interval development of FDG avid right-sided pulmonary nodules. There was a new FDG avid right lower lobe lesion measuring 1.1 cm with an SUV max of 3.8. A new 1 cm right upper lobe with central peribronchial nodule/node with SUV max of 4.9. There was a new FDG avid 0.5 cm right upper lobe pulmonary nodule with SUV max of 1.4. There were no FDG avid hepatic masses, adrenal masses or evidence of bony metastatic disease. The patient was seen by Dr. Dong Zee who underwent navigational fiberoptic bronchoscopy with radial ultrasound, transbronchial brushings, biopsies and washings. Transbronchial biopsies of the right upper lobe and right lower lobe however were negative for malignancy. Case: [id number]. The positive biopsy tissue was sent for review at [facility] and according to the patient they concurred with the diagnosis. The patient therefore underwent a CT-guided aspiration biopsy on 07/21/2015. Review of the tissue revealed malignant cells present. Given the clinical context these findings are felt to be consistent with a metastatic carcinoma from the patient's known anal primary. Case: [id number]. This tissue was reviewed at [facility]. They identified rare markedly atypical cells present, suspicious for malignancy. The slides were stained for P 40 and P 18 which stained be atypical cells strongly. This is supportive of HPV-related squamous cell carcinoma. However the cells were too few and scan to further characterize. The features however suggestive of metastasis from the patient's known and primary anal squamous cell carcinoma. [id number]. The patient was scheduled to be seen at [facility] by Dr. Stanton and by medical oncology. Dr. Stanton suggested that she hold off on her appointment with medical oncology. We have the patient seen by Dr. Pike for evaluation of an ablative therapy.. On September 09 she was scheduled for this procedure. A repeat CT scan of the chest was reportedly performed and the patient proceeded with the ablative therapy. She tolerated this treatment fairly well. She was followed with a CT scan of the chest with IV contrast on 10/14/2015. This showed pulmonary emphysema with no pleural effusion. An enlarging right upper lobe nodule measuring 1.7 cm was visualized on image number 1:15 out of 376. This measured 1.2 cm on a prior study performed in June 2015. Also noted was a 7 mm right upper lobe pulmonary nodule visualized on image 99 out of 376 that was similar to the prior study. A 1.3 cm right lower lobe pulmonary nodule was again noted. This demonstrated a linear track through the nodule with radiolucent halo and thin surrounding capsule consistent with prior nodular ablation. No mediastinal lymphadenopathy is seen. Upper abdomen is unremarkable. No lytic or blastic bony lesions are seen in the visualized chest and upper abdomen. Based on this report of an enlarging right upper lobe nodule that we were asked to see this patient for evaluation of the radiation options. Copies of these images have been sent to Dr. Stanton for his evaluation and hopefully also been forwarded to for his review on the option of additional ablative therapy. Final decision was that these 2 right upper lobe lesions would best be treated with stereotactic body radiation therapy. 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 She underwent SBRT to the right lung lesions. This was completed 12/12/2015. She received 5000 cGy. She returned to medical oncology to discuss salvage chemotherapy. She sought second opinion to at [facility]. There was discussion of possible clinical trial. Ultimately decision was made to treat with 5-FU and cisplatin. This was a reduced dose due to prior mouth irritation with initial treatment. She unfortunately had a severe reaction to chemotherapy she developed mucositis and esophagitis. She had pancytopenia and hypokalemia. She was admitted and was hospitalized over a two-week time. She feels that the chemotherapy made her pre-existing neuropathy much worse. She was unable to keep food and had significant weight loss. Her usual weight is 123 pounds and she went down to 107. Since discharge she is steadily recuperating and is now gaining weight and is up to 115 pounds. She is continued follow-up with medical oncology. Due to her previous severe reaction to chemotherapy she did not wish to undergo any further treatment with chemotherapy. They did present to her treatment with nivolumab. She was in agreement to try this medication. She has been receiving this since May and it is given every 2 weeks. She does not have any complaints about the medication. The chemotherapy was a concern to her because of the potential effects on her already existing neuropathy. With this medication she does have a mild increase in shortness of breath. This is nothing severe. This does not keep her from her usual activities. She has now undergone recheck scanning. She is here for review of the studies. This study showed stable disease other than one lesion of the left lingula. Radiation therapy was stereotactic treatment was recommended. Status post completion of radiation therapy 08/29/2016 received 5000 cGy. Interim History Respiratory status is stable. She'll occasionally has increased shortness of breath when having a flareup of her allergies. She recently completed a steroid rescue. With the medication the difficulty with breathing resolved. She continues with "immunotherapy". She receives this every 2 weeks. The dose is adjusted due to general myalgias. She denies any difficulty with bowel movements. She had recheck CT scanning and presented today for results of these studies. Allergies Coded Allergies: Amoxicillin (Verified Allergy, Severe, SLIGHT TONGUE SWELLING, 02/15/16) Home Medications Scheduled Budesonide/Formoterol Fumarate (Symbicort 160-4.5 Mcg/Act), 2 PUFFS INH BID Levothyroxine Sodium (Levothyroxine Sodium), 1 TAB PO DAILY Prednisone (Prednisone), 7.5 MG PO QAM Scheduled PRN Albuterol Hfa (Ventolin Hfa), 2 PUFFS INH Q4 PRN for SOB/Wheezing Review of Systems Gastrointestinal: Symptoms: Rectal Bleeding GI Comments: had bleeding for several days when wipes, saturday and saturday , went away Oral: Symptoms: No Problems Respiratory: Symptoms: WNL Urinary: Symptoms: Frequency Comments: denies ester or burning, from immunothrapy Skin: Symptoms: No Problems Other Skin Symptoms: " nothing out of the ordinary " Physical Exam Vital Signs Date Time Temp Pulse Resp B/P (MAP) Pulse Ox O2 Delivery O2 Flow Rate FiO2 03/08/17 10:13 36.8 83 18 136/84 96 Pain: Side: Bilateral Patient Pain Scale: 0 - 10 Initial Pain Intensity: 0.0 General Appearance: no apparent distress Eyes: normal inspection, EOMI ENT: normal ENT inspection, hearing grossly normal Neck: no adenopathy, thyroid normal Respiratory/Chest: lungs clear, no respiratory distress, no accessory muscle use Cardiovascular: regular rate, rhythm, no gallop, no murmur Abdomen: non tender, soft Extremities: no pedal edema Neurologic/Psychiatric: alert, normal mood/affect Skin: warm/dry Laboratory Studies Test 12/31/16 09:55 01/15/17 11:18 01/25/17 13:28 02/11/17 10:57 Magnesium Level 2.4 mg/dl (1.8-2.4) Urine Color YELLOW Urine Appearance CLEAR (CLEAR) Urine pH 6.5 (4.5-7.5) Urine Specific [place] 1.015 (1.000-1.030) Urine Protein NEG (NEG) Urine Glucose (UA) NEG (NEG) Urine Ketones NEG (NEG) Urine Occult Blood NEG (NEG) Urine Nitrite NEG (NEG) Urine Bilirubin NEG (NEG) Urine Urobilinogen NEG (NEG) Urine Leukocyte Esterase TRACE (NEG) Urine WBC (Auto) 1-5 /hpf (0-5) Urine RBC (Auto) 5-10 /hpf (0-4) Urine Hyaline Casts (Auto) 0 /lpf (0-5) Urine Epithelial Cells (Auto) 10-20 /lpf (0-5) Urine Bacteria (Auto) NEG (NEG) Thyroid Stimulating Hormone (TSH) 0.594 uIu/ml (0.300-4.500) 0.532 uIu/ml (0.300-4.500) White Blood Count 7.73 K/uL (4.8-10.8) Red Blood Count 3.80 M/uL (4.2-5.4) Hemoglobin 11.9 g/dL (12.0-16.0) Hematocrit 37.5 % (37-47) Mean Corpuscular Volume 98.7 fL (80-100) Mean Corpuscular Hemoglobin 31.3 pg (25-34) Mean Corpuscular Hemoglobin Concent 31.7 g/dl (32-36) Platelet Count 209 K/uL (130-400) Mean Platelet Volume 8.6 fL (7.4-10.4) Neutrophils (%) (Auto) 81.7 % Lymphocytes (%) (Auto) 4.7 % Monocytes (%) (Auto) 9.2 % Eosinophils (%) (Auto) 3.1 % Basophils (%) (Auto) 0.9 % Neutrophils # (Auto) 6.32 K/uL (1.4-6.5) Lymphocytes # (Auto) 0.36 K/uL (1.2-3.4) Monocytes # (Auto) 0.71 K/uL (0.11-0.59) Eosinophils # (Auto) 0.24 K/uL (0-0.5) Basophils # (Auto) 0.07 K/uL (0-0.2) RDW Standard Deviation 50.5 fL (36.4-46.3) RDW Coefficient of Variation 14.0 % (11.5-14.5) Immature Granulocyte % (Auto) 0.4 % Immature Granulocyte # (Auto) 0.03 K/uL (0.00-0.02) Sodium Level 145 mmol/L (136-145) Potassium Level 3.9 mmol/L (3.5-5.1) Chloride Level 109 mmol/L (98-107) Carbon Dioxide Level 24 mmol/L (21-32) Anion Gap 12.0 mmol/L (3-11) Blood Urea Nitrogen 24 mg/dl (7-18) Creatinine 0.93 mg/dl (0.60-1.20) Est Creatinine Clear Calc Drug Dose 50.3 ml/min Estimated GFR () 72.2 Estimated GFR (Non- 62.3 BUN/Creatinine Ratio 25.3 (10-20) Random Glucose 93 mg/dl (70-99) Calcium Level 9.2 mg/dl (8.5-10.1) Total Bilirubin 0.5 mg/dl (0.2-1) Aspartate Amino Transferase (AST) 35 U/L (15-37) Alanine Aminotransferase (ALT) 39 U/L (12-78) Alkaline Phosphatase 59 U/L (45-117) Lactate Dehydrogenase 317 U/L (84-246) Total Protein 6.9 gm/dl (6.4-8.2) Albumin 3.5 gm/dl (3.4-5.0) Globulin 3.4 gm/dl (2.5-4.0) Albumin/Globulin Ratio 1.0 (0.9-2) Test 02/25/17 14:06 02/26/17 00:00 White Blood Count 6.20 K/uL (4.8-10.8) Red Blood Count 3.71 M/uL (4.2-5.4) Hemoglobin 11.9 g/dL (12.0-16.0) Hematocrit 37.1 % (37-47) Mean Corpuscular Volume 100.0 fL (80-100) Mean Corpuscular Hemoglobin 32.1 pg (25-34) Mean Corpuscular Hemoglobin Concent 32.1 g/dl (32-36) Platelet Count 194 K/uL (130-400) Mean Platelet Volume 9.0 fL (7.4-10.4) Neutrophils (%) (Auto) 82.7 % Lymphocytes (%) (Auto) 5.0 % Monocytes (%) (Auto) 7.3 % Eosinophils (%) (Auto) 3.4 % Basophils (%) (Auto) 1.3 % Neutrophils # (Auto) 5.13 K/uL (1.4-6.5) Lymphocytes # (Auto) 0.31 K/uL (1.2-3.4) Monocytes # (Auto) 0.45 K/uL (0.11-0.59) Eosinophils # (Auto) 0.21 K/uL (0-0.5) Basophils # (Auto) 0.08 K/uL (0-0.2) RDW Standard Deviation 51.2 fL (36.4-46.3) RDW Coefficient of Variation 14.1 % (11.5-14.5) Immature Granulocyte % (Auto) 0.3 % Immature Granulocyte # (Auto) 0.02 K/uL (0.00-0.02) Sodium Level 146 mmol/L (136-145) Potassium Level 4.2 mmol/L (3.5-5.1) Chloride Level 111 mmol/L (98-107) Carbon Dioxide Level 27 mmol/L (21-32) Anion Gap 8.0 mmol/L (3-11) Blood Urea Nitrogen 24 mg/dl (7-18) Creatinine 0.98 mg/dl (0.60-1.20) Est Creatinine Clear Calc Drug Dose 47.7 ml/min Estimated GFR () 67.7 Estimated GFR (Non- 58.4 BUN/Creatinine Ratio 24.8 (10-20) Random Glucose 129 mg/dl (70-99) Calcium Level 9.6 mg/dl (8.5-10.1) Total Bilirubin 0.3 mg/dl (0.2-1) Aspartate Amino Transferase (AST) 36 U/L (15-37) Alanine Aminotransferase (ALT) 40 U/L (12-78) Alkaline Phosphatase 66 U/L (45-117) Lactate Dehydrogenase 347 U/L (84-246) Total Protein 6.5 gm/dl (6.4-8.2) Albumin 3.4 gm/dl (3.4-5.0) Globulin 3.1 gm/dl (2.5-4.0) Albumin/Globulin Ratio 1.1 (0.9-2) Urine Color YELLOW Urine Appearance CLEAR (CLEAR) Urine pH 6.5 (4.5-7.5) Urine Specific [place] 1.017 (1.000-1.030) Urine Protein NEG (NEG) Urine Glucose (UA) NEG (NEG) Urine Ketones NEG (NEG) Urine Occult Blood TRACE (NEG) Urine Nitrite NEG (NEG) Urine Bilirubin NEG (NEG) Urine Urobilinogen NEG (NEG) Urine Leukocyte Esterase NEG (NEG) Urine WBC (Auto) 1-5 /hpf (0-5) Urine RBC (Auto) 5-10 /hpf (0-4) Urine Hyaline Casts (Auto) 0 /lpf (0-5) Urine Epithelial Cells (Auto) 5-10 /lpf (0-5) Urine Bacteria (Auto) NEG (NEG) Additional Studies Patient: BASSEM DANIELS Address1: [address] [place] [address] DR Guajardo Rec: [id number] Address2: Acct ID: [id number] [facility] [place] Zip: [place] [address] Date: 1945 Sex: F Room/Bed: Ref Phy: Dong Emmanuel M.D. SC: C.CTS Att Phy: Dot Carlos PA-C Report #: [id number] Maria Eugenia Phy: Dong Emmanuel M.D. Test: APW Admit Phy: Pack Room Operator: AMBER Interpreting Phy: Roland De La Vega M.D. Diagnosis: HX LUNG CA/ANAL CA C78.02, C78.01, C21.0 Ordering Phy: Dot Carlos PA-C Service Date: 03/06/17 Admit Date: 03/06/17 MNE: [id number] CONF: DICTATED BY: Roland De La Vega M.D.]] CC: Dot Carlos PA-C Solic, John, M.D. Endcc: [~ rep ct add3]] ABDOMEN AND PELVIS CT WITH IV AND ORAL CONTRAST CT DOSE: HISTORY: Lung carcinoma HX LUNG CA/ANAL CA C78.02, C78.01, C21.0 TECHNIQUE: Multiaxial CT images of the abdomen and pelvis were performed following the use of intravenous and oral contrast. COMPARISON STUDY: 2016 FINDINGS: Nodular density right base considered stable. No new basilar pulmonary nodules. Liver is uniform. Spleen pancreas are unremarkable. Small right renal cortical cyst unchanged. Kidneys enhance uniformly. Several small subcentimeter renal cortical cysts also stable. Nonobstructing lower pole right renal calcification unchanged. Nonobstructive bowel pattern. No significant abdominal or pelvic scarlet pathology. Slight bulkiness of the uterine cervix unchanged. Bladder is midline. It is relatively collapsed. Degenerative change of the osseous structures considered stable. IMPRESSION: 1. Stable evaluation of the abdomen and pelvis. 2. Unchanging nodularity right lung base. 3. No new or progressive lesion within the abdomen or pelvis. Electronically signed by: Roland De La Vega M.D. 03/06/2017 10:12 AM Dictated Date/Time: 03/06/2017 10:05 AM Patient: BASSEM DANIELS Address1: [address] [place] [address] [facility] Rec: [id number] Address2: Acct ID: [id number] [facility] [place] Zip: [place] [address] Date: 1945 Sex: F Room/Bed: Ref Phy: Dong Emmanuel M.D. SC: C.CTS Att Phy: Dot Carlos PA-C Report #: [id number] Maria Eugenia Phy: Dong Emmanuel M.D. Test: CX Admit Phy: Pack Room Operator: AMBER Interpreting Phy: Milton Sherman M.D. Diagnosis: HX LUNG CA/ANAL CA C78.02, C78.01, C21.0 Ordering Phy: Dot Carlos PA-C Service Date: 03/06/17 Admit Date: 03/06/17 MNE: [id number] CONF: DICTATED BY: Milton Sherman M.D.]] CC: Dot Carlos PA-C Solic, John, M.D. Endcc: [~ rep ct add3]] CT SCAN OF THE CHEST WITH IV CONTRAST CLINICAL HISTORY: Lung cancer. Anal cancer. COMPARISON STUDY: Chest CT scans dated 11/07/2016 and 07/23/2014. TECHNIQUE: Following the IV administration of 117 of Optiray 320, CT scan of the chest was performed from the thoracic inlet to the upper abdomen. Images are reviewed in the axial, sagittal, and coronal planes. IV contrast was administered without complication. Automated dose control exposure was utilized. The examination is degraded by streak artifact from the left arm which could not be elevated above the chest. CT DOSE: 445.74 mGy.cm FINDINGS: Thyroid: Atrophic versus surgically absent. Thoracic aorta: There is mild atherosclerotic calcification of the thoracic aorta, which is normal in caliber and demonstrates 4-vessel variant arch anatomy. No dissection is seen. A right subclavian central venous infusion port is in place. Pulmonary vasculature: The pulmonary trunk is normal in caliber. There are no filling defects identified in the central pulmonary vessels to indicate pulmonary was. Note that this examination was not protocoled for evaluation of the pulmonary arteries. Heart: The heart is top normal in size and configuration, and without pericardial effusion. The coronary arteries are densely calcified. Lungs and pleural spaces: There is advanced emphysema and biapical scarring. No airspace consolidation or pleural effusion is identified. 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 A spiculated nodule abutting the pleural surface at the right lung base on image #204 is similar appearance to the 11/07/2016 examination and measures up to 1.5 cm. A 4 mm nodule in the superior segment of the left lower lobe on image #93 is unchanged. There is atelectasis/scarring identified in the lingula at the site of the previously identified nodule. The nodule itself is not clearly visualized. A metallic fiducial is again seen in the right upper lobe within a region of irregular soft tissue density. This is seen on axial image #95 and measures approximately 4 x 2 cm. This has significantly increased from 11/07/2016 appears to track along the bronchovascular bundles. Secretions are noted within the trachea and the left mainstem bronchus. Mediastinum: There is no mediastinal lymphadenopathy. Shanna: There are calcified hilar lymph nodes. No hilar adenopathy is seen. Axillae: There is no axillary lymphadenopathy. Upper abdomen: A punctate nonobstructing left renal calculus is noted. Partially imaged upper abdominal viscera is grossly normal in appearance. Bony thorax: The skeletal structures are osteopenic. There is degenerative change and hyperkyphosis in the thoracic spine. There are mild compression deformity is at T5, T8, T9, and T10. A large calcified posterior disc fragment is suggested at T10-T11. This may contribute to acquired compromise of the central canal. No lytic or blastic lesions are identified. Soft tissues: The patient is cachectic. IMPRESSION: 1. There is increasing irregular soft tissue in the right upper lobe around a metallic fiducial when compared to 11/07/2016. This appears to track centrally along the bronchovascular bundles. Although this could potentially represent radiation fibrosis if there has been interval radiation treatment the appearance is concerning for progression of disease. 2. There is linear atelectasis versus scarring/fibrosis identified in the lingula at the site of the previously characterized nodule. The lingular lesion seen previously is not visualized. 3. A right lower lobe lesion has not significantly changed from previous. 4. Advanced emphysema. There is no airspace consolidation typical for pneumonia or pleural effusion. 5. There is no mediastinal or hilar adenopathy. 6. Additional findings as above. Electronically signed by: Milton Sherman M.D. 03/06/2017 10:17 AM Dictated Date/Time: 03/06/2017 10:04 AM Assessment & Plan Plan: The test findings were reviewed with the patient. There is concern of possible recurrence in the right upper lobe. There is a increasing irregular soft tissue in the right upper lobe around the fiducial marker. This was reviewed in radiology by Dr. Rosado. The recommendation was for her to have a PET/CT to determine if the changes in the right upper lobe are metabolically active. If the area is active we will need to evaluate for possible radiation therapy. I also discussed with her that we would likely present her case at tumor board. We would also refer her to Dr. Ascencio for his opinion. We'll see her in follow-up immediately following the PET/CT for review of the findings. She continues with medical oncology. We will forward a copy of these results also to Dr. Cavazos. These results have also been sent to Dr. Emmanuel. Total Time In Follow-Up I spent 20 minutes speaking to the patient and performing examination. I spent 15 minutes reviewing information in completing this note Copy To David Cavazos D.O.; Dong Emmanuel M.D.; Manfred Ascencio MD
== END | disposition home or self-care (01) ==
LOC: C.ONC 10:03
PROVIDERS: ATTEND Physician Assistant Medical
DX: Z08 Encounter for follow-up examination after completed treatment for malignant neoplasm (principal); Z92.3 Personal history of irradiation; Z85.048 Personal history of other malignant neoplasm of rectum, rectosigmoid junction, and anus

== ENCOUNTER → 2017-03-18 | Outpatient (CLI) | payer BC ==
[~2017-03-18] MED LIST changes: -CEPH500C PO; -NYSTOIN TOP
--- NOTE | 2017-03-18 14:33 | DIAGNOSTIC IMAGING REPORT ---
PET/CT SKULL-THIGH CLINICAL HISTORY: Colorectal carcinoma. Lung carcinoma. COMPARISON STUDY: 06/27/2015, CT scan of the chest dated 03/06/2017 FINDINGS: The patient was injected with 11.9 mCi of F-18 labeled FDG. Following the standard induction phase, PET/CT scanning is performed from the skull base the upper thigh region. Activity within neck is felt to be physiologic. With the chest, there is intense focus of increased FDG activity fusing to a right hilar mass with SUV maximum of 8.3. There are minimally FDG avid airspace opacities peripheral to this mass. The findings are viewed as highly suspicious for neoplasm with possible postobstructive pneumonitis. There is a stable minimally FDG avid right lower lobe pulmonary nodule measuring 12 mm. This has an SUV maximum of 1.1. There are airspace opacities within the lingula with 1 moderate FDG avid focus with SUV maximum of 3. Hepatic activity is felt to be physiologic. Splenic activity is felt to be physiologic. There is physiologic urinary tract and bowel activity. There is no pathologic scarlet activity within either the abdomen or pelvis. There is no pathologic adrenal gland activity. There is a small an FDG avid focus within the anus with SUV maximum of 3.2. This remain stable. IMPRESSION: 1. Intense focus of increased FDG activity (2.9 cm) fusing to a right hilar mass with SUV maximum of 8.3. This should be presumed neoplastic unless proven otherwise. 2. Stable mildly FDG avid 12 mm right lower lobe pulmonary nodule 3. Subcentimeter FDG avid nodule within the lingula with SUV maximum of 3 4. Stable FDG avid focus within the anus with SUV maximum of 3.2 Electronically signed by: Zeke Mirza M.D. 03/18/2017 2:31 PM Dictated Date/Time: 03/18/2017 2:21 PM
== END | disposition home or self-care (01) ==
LOC: C.PET 11:16
PROVIDERS: ATTEND Physician Assistant Medical
DX: R91.1 Solitary pulmonary nodule (principal); C18.0 Malignant neoplasm of cecum

== ENCOUNTER → 2017-03-27 | Outpatient (CLI) | payer BC | END | disposition home or self-care (01) | LOC: C.CPL 09:24 | PROVIDERS: ATTEND Surgery | DX: R91.8 Other nonspecific abnormal finding of lung field (principal) ==

== ENCOUNTER → 2017-04-05 | Day surgery (SDC) | payer BC ==
[2017-03-27 08:28] VITALS: BMI 17.0
[~2017-04-05] VITALS: Ht 177.8 cm; Wt 53.6 kg
[~2017-04-05] MED LIST changes: +ATROPINE SULFATE 0.1 MG/ML 5ML SYR IV PRN; +CLINDAMYCIN PHOS 150 MG/ML 2 ML VIAL ONE; +DEXAMETHASONE SOD INJ 4 MG/ML VIAL ONE; +EpHEDrine SULFATE 50MG/5ML SYR ONE; +EpHEDrine SULFATE INJ 50 MG/ML AMP IV PRN; +FENTANYL CITRATE INJ 50 MCG/1 ML 2 ML VIAL IV PRN; +FENTANYL CITRATE INJ 50 MCG/1 ML 2 ML VIAL ONE; +GLYCOPYRROLATE INJ 0.2 MG/ML VIAL ONE; +HYDROCORTISONE SOD SUCCINATE 100 MG/2 ML VIAL ONE; +HYDROmorphone INJ 1 MG/ML SYR IV PRN; +LACTATED RINGER'S 1000ML 1,000 ML IV SCH; +LARYING-O-JET KIT (LTA) ONE; +LIDOCAINE HCL 2% 2 ML VIAL (20MG/ML) ONE; +MIDAZOLAM HCL 1 MG/ML 2ML VIAL ONE; +NEOSTIGMINE METHYLSULFATE 5 MG/5 ML SYR ONE; +ONDANSETRON INJ 2 MG/ML 2 ML VIAL IV PRN; +ONDANSETRON INJ 2 MG/ML 2 ML VIAL ONE; +PROPOFOL IV EMULSION 10 MG/ML 20 ML VIAL IV ONE; +ROCURONIUM BROMIDE 10 MG/ML 5 ML VIAL ONE
[2017-04-05 05:53] VITALS: BP 165/69; PULSE 77; TEMP 36.9; O2SAT 96; Ht 177.8 cm; Wt 53.6 kg
--- NOTE | 2017-04-05 07:08 | History & Physical Bridge Note ---
H&P Re-Evaluation Bridge Note: I have examined the patient, reviewed the History & Physical and in the interval since the performance of the History & Physical I have noted the following changes of clinical significance: No changes noted
--- NOTE | 2017-04-05 07:36 | Discharge Instructions ---
Discharge Instructions Date of Service Apr 05, 2017. Visit Reason for Visit: Multiple Pulmonary Nodules, 2ND Cancer Of Lung Discharge Discharge Diagnosis / Problem: Multiple Pulmonary Nodules, 2ND Cancer Of Lung Discharge Goals Goal(s): Learn about illness Activity Recommendations Activity Limitations: resume your previous activity (in 24 hours) Anesthesia . Post Anesthesia Instructions: If you have had General Anesthesia or IV Sedation: * Do not drive today. * Resume driving when surgeon permits. * Do not make important decisions or sign legal documents today. * Call surgeon for: 1. Temperature elevations greater than 101 degrees F. 2. Uncontrollable pain. 3. Excessive bleeding. 4. Persistent nausea and vomiting. 5. Medication intolerance (nausea, vomiting or rash). * For nausea and vomiting use only clear liquids such as: tea, soda, bouillon until nausea subsides, then gradually increase diet as tolerated. * If you have any concerns or questions, call your surgeon's office. If physician is unavailable and it is an emergency, call 911 or go to the nearest emergency room. . Instructions / Follow-Up Instructions / Follow-Up 1. You may cough up some blood. Call physician if excessive amount noted. 2. Keep your scheduled appointment with Dr. Ascencio on April 15, 2017 @ 9:30 am. Go to hospital 1 hour before appointment to get a chest x-ray. Diet Recommendations Recommended Home Diet: resume previous diet Pending Studies Studies pending at discharge: no Medical Emergencies . Who to Call and When: Medical Emergencies: If at any time you feel your situation is an emergency, please call 911 immediately. . Non-Emergent Contact Non-Emergency issues call your: Surgeon Call Non-Emergent contact if: you have a fever, your pain is not controlled . . "Provider Documentation" section prepared by Michele Bravo. .
--- NOTE | 2017-04-05 09:44 | Anesthesiology Progress Note ---
Anesthesia Post Op Note Date & Time Apr 05, 2017 at 09:44 Vital Signs Pain Intensity: 0 Vital Signs Past 12 Hours Date Time Temp Pulse Resp B/P (MAP) Pulse Ox O2 Delivery O2 Flow Rate FiO2 04/05/17 09:10 36.2 91 16 167/78 100 Mask 7 04/05/17 05:53 36.9 77 20 165/69 (101) 96 Notes Mental Status: alert / awake / arousable, participated in evaluation Pt Amnestic to Procedure: Yes Nausea / Vomiting: adequately controlled Pain: adequately controlled Airway Patency, RR, SpO2: stable & adequate BP & HR: stable & adequate Hydration State: stable & adequate Anesthetic Complications: no major complications apparent
--- NOTE | 2017-04-05 09:47 | DIAGNOSTIC IMAGING REPORT ---
CHEST ONE VIEW PORTABLE CLINICAL HISTORY: s/p FOB postoperative evaluation COMPARISON STUDY: 02/11/2017 FINDINGS: Interval development of a small left apical pneumothorax. Maximum pleural separation is 1.7 cm. Central catheter remains in superior vena cava. Parenchymal nodularity is stable. IMPRESSION: Small left apical pneumothorax with a maximum pleural separation of 1.7 cm. The above report was generated using voice recognition software. It may contain grammatical, syntax or spelling errors. Electronically signed by: Roland De La Vega M.D. 04/05/2017 9:46 AM Dictated Date/Time: 04/05/2017 9:43 AM
[2017-04-05 10:25] VITALS: BP 117/61; PULSE 70; TEMP 36.5; O2SAT 98
[2017-04-05 10:55] VITALS: BP 117/47; PULSE 73; O2SAT 99
[2017-04-05 11:25] VITALS: BP 135/62; PULSE 80; TEMP 36.5; O2SAT 95
--- NOTE | 2017-04-05 11:33 | DIAGNOSTIC IMAGING REPORT ---
CHEST ONE VIEW PORTABLE CLINICAL HISTORY: pneumothorax COMPARISON STUDY: 04/05/2017 9:36 AM FINDINGS: Stable left apical pneumothorax. No change in the prior study. Arm and composed of the study are similar. IMPRESSION: Small left apical pneumothorax having unchanging pleural separation compared to the prior study. The above report was generated using voice recognition software. It may contain grammatical, syntax or spelling errors. Electronically signed by: Roland De La Vega M.D. 04/05/2017 11:32 AM Dictated Date/Time: 04/05/2017 11:31 AM
--- NOTE | 2017-04-05 14:21 | OPERATIVE REPORT ---
DATE OF OPERATION: 04/05/2017 PREOPERATIVE DIAGNOSES: 1. Enlarging mass, right hilum. 2. Questionable inflammatory mass lingula. 3. 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 POSTOPERATIVE DIAGNOSES: 1. Questionable nonsmall cell lung carcinoma, right hilum. 2. Iatrogenic left pneumothorax. PROCEDURES: 1. Endobronchial ultrasound to evaluate lymph nodes (no biopsy done). 2. Navigational bronchoscopy with brushings and washings of lingular lesion left upper lobe. 3. Navigational bronchoscopy with brushes, forceps biopsy and multiple needle biopsies of right hilar mass. SURGEON: Dr. Ascencio. COOK FISH EGGS: Dong Lamar, respiratory therapy. ANESTHESIA: General anesthesia with endotracheal intubation. INDICATION FOR PROCEDURE AND FINDINGS: Ms. 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 One year later she was found to have lesions in her lungs and underwent a percutaneous needle biopsy which showed that the right side lesion was indeed metastatic disease. It was assumed the other masses were also malignant. She underwent radiofrequency catheter ablation of the right lower lobe lesion and SBRT of the right upper lobe and left upper lobe/lingular lesions. The patient did well until recently. She underwent a CT scan which showed enlargement of these masses. She underwent a PET scan which lit up the right hilar area which has grown dramatically since October. The right lower lobe mass which she had radiofrequency ablation is unchanged over the last 2 years. In addition, the lingular lesion appears worse, but also appears to be more of an infiltrate. She has been having a productive cough producing yellowish sputum, however I put her on antibiotics last week and she states that this has improved greatly. She is coughing very little up now. I did an endobronchial ultrasound. There were just no lymph nodes to biopsy. We carefully started on the left hilar area elected the level 11, 10, 4, even 2 as well as level 7 and just did not see anything large enough to even warrant a biopsy. I then did the same thing on the right side and looked at the level 11, 10, 7, 4 and 2. They just were not large enough to biopsy. In addition, there did not light up on the PET scan. I ended up not doing a biopsy. Attention was then turned towards the left upper lobe lesion and the navigational bronchoscopy was performed as well as the navigational bronchoscopy with multiple biopsies of the right hilar mass. She tolerated it well except she was noted to have small pneumothorax on the right which was surprising since we did not use any needles or forceps. At any rate, this was unchanged after 90 minutes or so and she looked very good, so we sent her home. PROCEDURE: The patient brought to the operating room and laid in supine position. General anesthesia induced and endotracheal intubation was performed. After appropriate timeout had been called and antibiotics given the endoscopic ultrasound bronchoscope was placed. There were no endobronchial lesions noted. She did have some slight erythema of the distal left mainstem bronchus at the bifurcation, but there were no lesions. There was white sputum which was not abundant. Ultrasound mode was then engaged and it could be seen after closely looking at the level 11, level 10, level 4 and even level 2 on the left including level 7, I really did not see a node that I felt comfortable biopsying as they were all very small. I then went on the right side and looked at the level 10, 11, 4 and 2 as well as 7 from the right side and again I was not impressive with any of these lymph nodes. As none of these were hypermetabolic on the PET scan, I elected to forego biopsy. Navigational probe was in place. After registering the airways I then went into the left upper lobe and then the lingular x-ray and I was able to come right down into this abnormality which we had marked. This was close to the periphery. I did not want to use a needle. I did use the radial ultrasound probe and saw some minor abnormalities, although not a solid mass that I was hoping. I then did a brush biopsy x3 gently. We then irrigated this out and got washings. These were sent for cultures as well as cytology. There was no significant bleeding. The other target was then selected and I went into the right lung and this was more central larger lesion on the right. I did brushings as well as forceps biopsy with touch prep. We saw no evidence of malignancy. We got into very little bleeding with this. I then positioned the navigational probe and then the biopsy catheter and biopsied this area multiple times. We did 13 separate needle biopsies from multiple directions and Dr. Chaitanya Wilcox was looking at these fine needle aspirations on a rapid on site evaluation and felt that we were dealing with a carcinoma. She also felt that that it was more containers sales representative of a non-small cell lung carcinoma and will have to wait for the permanent sections and cell blocks to see. We did get some bleeding. I irrigated this out in fact put a balloon into the apical segmental bronchus of the right upper lobe and held the balloon up for several minutes and this stopped the bleeding nicely. I then irrigated out both airways with no significant bleeding. We really did not lose much in the way of blood. I slowly withdrew the fiberoptic bronchoscope, we extubated the patient in the room. She did very well, looked fine, however x-ray showed a small pneumothorax on the left. We repeated this about 90 minutes later and if anything it appeared to be a bit smaller. She had good saturations on room air and I felt comfortable sending her home although I did give her my cell phone number to call me should any problems arise. She tolerated it well. I attest to the content of the Intraoperative Record and any orders documented therein. Any exception s are noted below.
== END | disposition home or self-care (01) ==
LOC: C.ACU 05:44
PROVIDERS: ATTEND Surgery
DX: C78.01 Secondary malignant neoplasm of right lung (principal); R91.8 Other nonspecific abnormal finding of lung field; J44.9 Chronic obstructive pulmonary disease, unspecified; E78.5 Hyperlipidemia, unspecified; E03.9 Hypothyroidism, unspecified; C78.00 Secondary malignant neoplasm of unspecified lung; Z85.048 Personal history of other malignant neoplasm of rectum, rectosigmoid junction, and anus; Z92.21 Personal history of antineoplastic chemotherapy; Z92.3 Personal history of irradiation; Z98.49 Cataract extraction status, unspecified eye; Z90.89 Acquired absence of other organs; Z80.3 Family history of malignant neoplasm of breast; Z83.3 Family history of diabetes mellitus; F17.200 Nicotine dependence, unspecified, uncomplicated; Z92.241 Personal history of systemic steroid therapy; M85.80 Other specified disorders of bone density and structure, unspecified site; G62.9 Polyneuropathy, unspecified

== ENCOUNTER → 2017-04-15 | Outpatient (CLI) | payer BC ==
[~2017-04-15] MED LIST changes: -ATROPINE SULFATE 0.1 MG/ML 5ML SYR IV PRN; -CLINDAMYCIN PHOS 150 MG/ML 2 ML VIAL ONE; -DEXAMETHASONE SOD INJ 4 MG/ML VIAL ONE; -EpHEDrine SULFATE 50MG/5ML SYR ONE; -EpHEDrine SULFATE INJ 50 MG/ML AMP IV PRN; -FENTANYL CITRATE INJ 50 MCG/1 ML 2 ML VIAL IV PRN; -FENTANYL CITRATE INJ 50 MCG/1 ML 2 ML VIAL ONE; -GLYCOPYRROLATE INJ 0.2 MG/ML VIAL ONE; -HYDROCORTISONE SOD SUCCINATE 100 MG/2 ML VIAL ONE; -HYDROmorphone INJ 1 MG/ML SYR IV PRN; -LACTATED RINGER'S 1000ML 1,000 ML IV SCH; -LARYING-O-JET KIT (LTA) ONE; -LIDOCAINE HCL 2% 2 ML VIAL (20MG/ML) ONE; -MIDAZOLAM HCL 1 MG/ML 2ML VIAL ONE; -NEOSTIGMINE METHYLSULFATE 5 MG/5 ML SYR ONE; -ONDANSETRON INJ 2 MG/ML 2 ML VIAL IV PRN; -ONDANSETRON INJ 2 MG/ML 2 ML VIAL ONE; -PROPOFOL IV EMULSION 10 MG/ML 20 ML VIAL IV ONE; -ROCURONIUM BROMIDE 10 MG/ML 5 ML VIAL ONE
--- NOTE | 2017-04-15 09:04 | DIAGNOSTIC IMAGING REPORT ---
TWO VIEW CHEST CLINICAL HISTORY: Pneumothorax. Lung cancer. FINDINGS: PA and lateral chest radiographs are compared to study dated 04/05/2017 and correlated with chest CT dated 03/06/2017. The PA view is degraded by patient rotation. The heart is enlarged and there is atherosclerotic calcification of the thoracic aorta. The pulmonary vasculature is noncongested. Emphysema and chronic interstitial thickening are similar to previous. A right suprahilar pulmonary lesion with metallic fiducials is similar to previous. There is no airspace consolidation typical for pneumonia or pleural effusion. There is no pneumothorax. Linear fibrosis in the lingula is unchanged. The skeletal structures are osteopenic. Degenerative change is seen throughout the thoracic spine. Mild compression deformities are noted. IMPRESSION: 1. No pneumothorax is identified on today's examination. 2. Cardiomegaly, emphysema, and a right suprahilar pulmonary lesion are similar to previous. 3. There is no evidence of superimposed airspace consolidation or pleural effusion. Electronically signed by: Milton Sherman M.D. 04/15/2017 9:03 AM Dictated Date/Time: 04/15/2017 9:01 AM
== END | disposition home or self-care (01) ==
LOC: C.RAD 08:45
PROVIDERS: ATTEND Physician Assistant
DX: J93.9 Pneumothorax, unspecified (principal); I51.7 Cardiomegaly; J43.9 Emphysema, unspecified; R91.1 Solitary pulmonary nodule

== ENCOUNTER → 2017-04-18 | Outpatient (CLI) | payer BC ==
--- NOTE | 2017-04-18 09:29 | DIAGNOSTIC IMAGING REPORT ---
NUCLEAR MEDICINE QUANTITATIVE LUNG SCAN CLINICAL HISTORY: C34.90 Non-small cell lung [id number] COMPARISON STUDY: No previous studies for comparison. FINDINGS: The patient was injected with 5.8 mCi of technetium 99m MAA. The perfusion pattern is heterogeneous bilaterally. The right lung receives 55% of perfusion. The left lung receives 45% of perfusion. The right upper lung zone receives 10% of global perfusion, the right middle lung zone receives 29% of global perfusion, and the right lower lung zone received 16% of global perfusion. The left upper lung zone received 13% of global perfusion, the left middle lung zone received 23% of global perfusion, and the left lower lung zone received 9% of global perfusion. IMPRESSION: Quantitative perfusion scan as described above. Electronically signed by: Zeke Mirza M.D. 04/18/2017 9:28 AM Dictated Date/Time: 04/18/2017 9:17 AM
== END | disposition home or self-care (01) ==
LOC: C.NUCL 08:45
PROVIDERS: ATTEND Surgery
DX: C34.90 Malignant neoplasm of unspecified part of unspecified bronchus or lung (principal)

== ENCOUNTER → 2017-04-24 | Outpatient (CLI) | payer BC ==
--- NOTE | 2017-04-24 14:48 | DIAGNOSTIC IMAGING REPORT ---
(CHEST) THORAX WITHOUT CT DOSE: 214.18 mGy.cm HISTORY: NON-SMALL CELL LUNG CANCER C34.90 TECHNIQUE: Multiaxial CT images of the chest were performed without contrast. A dose lowering technique was utilized adhering to the principles of ALARA. COMPARISON: Chest CT 03/06/2017. PET CT 03/18/2017. FINDINGS: Overall, there is similar appearance to the 3.6 x 1.8 cm irregular masslike density within the right suprahilar location. There are metallic fiducial markers at the anterior and posterior border of this lesion. Biapical pleural-parenchymal scarring persists. Moderate emphysema. Focal consolidation within the lingula remains unchanged. Partial visualization of the suspected 8 mm lingular nodule which remains unchanged. Stable 15 mm nodule within the periphery the right lower lobe. Old, healed right-sided rib fractures. No suspicious lytic or blastic osseous lesions. Right Port-A-Cath terminates in the distal SVC. No change in the T10-11 calcified disc resulting in mild to moderate central canal narrowing. No significant mediastinal or hilar lymphadenopathy. The visualized liver and spleen are unremarkable. Normal adrenal glands. IMPRESSION: 1. Overall, no significant change compared to the prior study. 2. The 3.6 x 1.8 cm irregular masslike right suprahilar opacity is again noted. 3. There is partial visualization of the suspected 8 mm lingular nodule which is obscured by the area of consolidation. 4. Stable 15 mm nodule within the right lower lobe Electronically signed by: Last Mckeon M.D. 04/24/2017 2:47 PM Dictated Date/Time: 04/24/2017 2:35 PM
== END | disposition home or self-care (01) ==
LOC: C.CTS 14:09
PROVIDERS: ATTEND Surgery
DX: C34.90 Malignant neoplasm of unspecified part of unspecified bronchus or lung (principal)

== ENCOUNTER 2017-04-26 05:33 | Inpatient (IN) | payer BC, OTHER ==
[2017-04-25 08:18] VITALS: Ht 177.8 cm; Wt 51.4 kg
[2017-04-26] VITALS (38 sets, daily range): BP systolic 50–163; BP diastolic 27–92; PULSE 57–86; TEMP 36.4–36.9; O2SAT 92–100
[~2017-04-26] VITALS: Ht 177.8 cm; Wt 51.4 kg
[~2017-04-26 05:33] MED LIST changes: -CLC100 PO; -IBUP-1050 PO; -LEVO1TAB33 PO; -ULT50X PO
[2017-04-26] MEDS ORDERED: LACTATED RINGER'S 1000ML 1,000 ML IV SCH (06:00)
[2017-04-26] MEDS ORDERED: ONDANSETRON INJ 2 MG/ML 2 ML VIAL ONE (06:17)
[2017-04-26] MEDS ORDERED: ROCURONIUM BROMIDE 10 MG/ML 5 ML VIAL IV ONE ×2 (06:17→06:19)
[2017-04-26] MEDS ORDERED: NEOSTIGMINE METHYLSULFATE 5 MG/5 ML SYR ONE (06:17)
[2017-04-26] MEDS ORDERED: DEXAMETHASONE SOD INJ 4 MG/ML VIAL ONE (06:17)
[2017-04-26] MEDS ORDERED: PROPOFOL IV EMULSION 10 MG/ML 20 ML VIAL IV ONE (06:17)
[2017-04-26] MEDS ORDERED: LIDOCAINE HCL 2% 2 ML VIAL (20MG/ML) ONE (06:17)
[2017-04-26] MEDS ORDERED: GLYCOPYRROLATE INJ 0.2 MG/ML VIAL ONE (06:17)
[2017-04-26] MEDS ORDERED: FENTANYL CITRATE INJ 50 MCG/1 ML 2 ML VIAL ONE (06:17)
[2017-04-26] MEDS ORDERED: MIDAZOLAM HCL 1 MG/ML 2ML VIAL ONE (06:18)
[2017-04-26] MEDS ORDERED: PHENYLEPHRINE HCL INJ 10 MG/ML VIAL ONE ×4 (06:30→11:32)
[2017-04-26] MEDS ORDERED: SODIUM CHLORIDE 0.9% PF 50 ML VIAL ONE (06:56)
[2017-04-26] MEDS ORDERED: BUPIVACAINE LIPOSOME 1/3% 266 MG/20 ML VIAL INFIL ONE (06:56)
[2017-04-26] MEDS ORDERED: CLINDAMYCIN PHOS 150 MG/ML 2 ML VIAL ONE (07:13)
[2017-04-26] MEDS ORDERED: HYDROCORTISONE SOD SUCCINATE 100 MG/2 ML VIAL ONE (08:42)
[2017-04-26] MEDS ORDERED: PHENYLEPHRINE 100MCG/ML 5ML SYR ONE ×2 (09:12→13:37)
[2017-04-26] MEDS ORDERED: FENTANYL CITRATE INJ 50 MCG/1 ML 2 ML VIAL IV PRN (09:45)
[2017-04-26] MEDS ORDERED: HYDROmorphone INJ 1 MG/ML SYR IV PRN (09:45)
[2017-04-26] MEDS ORDERED: ONDANSETRON INJ 2 MG/ML 2 ML VIAL IV PRN (09:45)
[2017-04-26] MEDS ORDERED: ATROPINE SULFATE 0.1 MG/ML 5ML SYR IV PRN (09:45)
[2017-04-26] MEDS ORDERED: EpHEDrine SULFATE INJ 50 MG/ML AMP IV PRN (09:45)
[2017-04-26] MEDS ORDERED: VASOPRESSIN 20 UNIT/ML VIAL ONE (11:00)
[2017-04-26] MEDS ORDERED: ALBUMIN HUMAN 5% 12.5 GM/250 ML VIAL IV ONE ×2 (11:00→13:49)
[2017-04-26 11:37] LABS: HEMATOCRIT 24.7 % (37-47)
[2017-04-26 12:52] LABS: ISTAT CREATININE 0.8 mg/dl (0.6-1.3); ISTAT HEMOGLOBIN 7.1 g/dl (12.0-16.0); ISTAT IONIZED CALCIUM 1.13 mmol/l (1.12-1.32)
[2017-04-26] MEDS ORDERED: D5W AND 1/2NSS 1,000 ML IV SCH (12:56)
[2017-04-26] MEDS ORDERED: ALBUTEROL HFA 8 GM INHALER INH PRN (13:00)
[2017-04-26] MEDS ORDERED: OXYCODONE HCL IR 5 MG TAB (IMMEDIATE RELEASE) PO PRN (13:00)
[2017-04-26] MEDS ORDERED: ALBUT/IPRATROP 3MG/0.5MG NEB 3 ML VIAL INH PRN (13:15)
--- NOTE | 2017-04-26 13:15 | DIAGNOSTIC IMAGING REPORT ---
DECUBITUS CHEST RADIOGRAPH CLINICAL HISTORY: Intraoperative radiograph. Incorrect instrument count. FINDINGS: A portable left lateral decubitus chest radiograph is compared to study dated 04/15/2017 and correlated with chest CT dated 04/24/2017. Emphysema is noted. Parenchymal assessment is limited. A right subclavian central venous infusion port catheter is identified. No retained surgical implement is clearly identified. An indeterminant linear/reticular density projects over the left lung base and is of indeterminant significance, and may be external to the patient. IMPRESSION: 1. No definite retained surgical implement is seen. 2. An indeterminant linear/reticular density projects over the left lung base. This is of indeterminant significance and clinical correlation will be required. Electronically signed by: Milton Sherman M.D. 04/26/2017 1:13 PM Dictated Date/Time: 04/26/2017 1:10 PM
[2017-04-26] MEDS ORDERED: SURGICEL ABSORB HEMOSTAT 2IN X 14IN TOP ONE (13:19)
[2017-04-26 13:46] LABS: BASO % 0.1 %; BASO ABS # 0.01 K/uL (0-0.2); EOS % 0.2 %; HEMATOCRIT 31.1 % (37-47); IG% 0.3 %; LYMPH ABS # 0.81 K/uL (1.2-3.4); MEAN CELL VOLUME 97.5 fL (80-100); MEAN PLATELET VOLUME 9.1 fL (7.4-10.4); MONO % 4.8 %; NEUT % 87.6 %; PLATELET COUNT 117 K/uL (130-400); RED BLOOD COUNT 3.19 M/uL (4.2-5.4); WHITE BLOOD COUNT 11.49 K/uL (4.8-10.8)
[2017-04-26 13:54] LABS: COMPLETE YES; MEAN CORPUSCULAR HGB CONC 32.8 g/dl (32-36)
[2017-04-26 14:01] LABS: INR 1.1 (0.9-1.1); PROTHROMBIN TIME (PATIENT) 12.1 SECONDS (9.0-12.0)
--- NOTE | 2017-04-26 14:22 | DIAGNOSTIC IMAGING REPORT ---
SINGLE VIEW CHEST CLINICAL HISTORY: Postoperative examination. Right upper lobe resection. FINDINGS: An AP, portable, upright chest radiograph is compared to study dated 04/15/2017 and correlated with chest CT dated 04/24/2017. The examination is degraded by portable technique and patient rotation. A right internal jugular central venous infusion port is unchanged in position. The heart is top normal for projection and there is atherosclerotic calcification of the thoracic aorta. The pulmonary vasculature is noncongested. Emphysema and chronic interstitial thickening are similar to previous. There are postoperative changes and volume loss in the right lung consistent with right upper lobe resection. There is compensatory hyperinflation of the left lung and mild rightward shift of mediastinum. The left lung is grossly clear. Suture material projects over the right apex. Airspace opacities are seen in the right mid to lower lung. No large pleural effusion is seen. A chest tube is present the right apex. No pneumothorax is seen. The skeletal structures are osteopenic. The bony thorax is grossly intact. Small foci of subcutaneous gas are present in the right chest wall. IMPRESSION: 1. Emphysema and postoperative change from right upper lobe pulmonary resection as above. 2. A chest tube is present the right apex. No definite pneumothorax is seen. 3. Airspace opacities are seen in the right mid to lower lung, likely on a postoperative basis. Attention at follow-up is recommended. Electronically signed by: Milton Sherman M.D. 04/26/2017 2:20 PM Dictated Date/Time: 04/26/2017 2:17 PM
--- NOTE | 2017-04-26 15:17 | Anesthesiology Progress Note ---
Anesthesia Post Op Note Date & Time Apr 26, 2017 at 15:12 Vital Signs Pain Intensity: 0 Vital Signs Past 12 Hours Date Time Temp Pulse Resp B/P (MAP) Pulse Ox O2 Delivery O2 Flow Rate FiO2 04/26/17 15:00 68 20 90/41 100 04/26/17 15:00 68 20 04/26/17 14:58 91/46 04/26/17 14:57 88/40 04/26/17 14:55 73 16 98/32 100 04/26/17 14:55 73 16 04/26/17 14:53 87/50 04/26/17 14:51 95/45 04/26/17 14:50 74 19 04/26/17 14:50 74 19 88/42 100 04/26/17 14:49 90/50 04/26/17 14:47 90/33 04/26/17 14:45 75 17 04/26/17 14:45 75 17 99/39 100 04/26/17 14:43 76/49 04/26/17 14:40 75 20 97/42 100 04/26/17 14:40 75 20 04/26/17 14:39 82/57 04/26/17 14:37 36.2 74 18 97/42 (60) 100 Mask 4 88/42 04/26/17 14:37 92/56 04/26/17 14:35 76 19 83/42 100 04/26/17 14:35 76 19 04/26/17 14:34 89/40 04/26/17 14:31 74 16 04/26/17 14:31 74 16 97/54 98 04/26/17 14:29 86/56 04/26/17 14:27 88/43 04/26/17 14:26 68 17 04/26/17 14:26 68 17 87/40 04/26/17 14:25 91/36 04/26/17 14:23 84/41 04/26/17 14:21 68 18 83/40 100 04/26/17 14:21 67 18 04/26/17 14:20 97/42 04/26/17 14:17 91/47 04/26/17 14:16 64 15 04/26/17 14:16 64 15 86/40 100 04/26/17 14:15 88/49 04/26/17 14:13 93/39 8/25/17 14:11 66 18 04/26/17 14:11 67 18 78/37 100 04/26/17 14:09 75/39 04/26/17 14:07 91/49 04/26/17 14:07 123/77 04/26/17 14:06 70 23 77/39 100 04/26/17 14:06 70 23 04/26/17 14:05 85/49 04/26/17 14:03 86/44 04/26/17 14:02 68 22 80/40 100 04/26/17 14:02 68 22 04/26/17 14:01 82/33 04/26/17 13:58 80/40 04/26/17 13:58 82/38 04/26/17 13:57 16 04/26/17 13:57 65 16 79/39 04/26/17 13:55 90/37 04/26/17 13:53 78/38 04/26/17 13:52 66 15 04/26/17 13:52 66 15 58/26 04/26/17 13:51 77/43 04/26/17 13:47 67 17 84/44 100 04/26/17 13:47 67 17 04/26/17 13:44 85/38 04/26/17 13:43 78/38 04/26/17 13:42 67 15 62/28 04/26/17 13:42 66 15 04/26/17 13:41 93/43 04/26/17 13:37 70 13 04/26/17 13:37 70 13 287/-50 100 04/26/17 13:36 79/49 04/26/17 13:34 89/45 04/26/17 13:32 74 17 04/26/17 13:32 75 17 94/39 100 04/26/17 13:27 78 16 92/43 100 04/26/17 13:27 78 16 04/26/17 13:26 117/50 04/26/17 13:23 81 18 04/26/17 13:23 80 18 104/50 100 04/26/17 13:22 129/51 04/26/17 13:18 85 21 130/59 100 04/26/17 13:18 86 21 04/26/17 13:16 156/115 04/26/17 13:14 154/55 04/26/17 13:13 88 13 167/69 98 04/26/17 13:13 35.7 89 16 154/55 100 Mask 10 04/26/17 13:13 86 13 04/26/17 06:12 36.9 83 18 163/92 98 Room Air Notes Mental Status: alert / awake / arousable Pt Amnestic to Procedure: Yes Nausea / Vomiting: adequately controlled Pain: adequately controlled Airway Patency, RR, SpO2: stable & adequate BP & HR: stable & adequate, see Notes Hydration State: stable & adequate Anesthetic Complications: no major complications apparent Operative procedure was complicated by >1L of blood loss and conversion to open thoracotomy. Patient was transfused 2u rbc intraop. After 30 minutes in pacu, patient became hypotensive 50s/30s on a line and correlated with NIBP. CXR, evaluation of chest tube, H/H check, and an informal bedside thoracic US did not show any significant bleeding. There was a 2cm or less effusion in the dependent part of the operative lung. The patient was mentally appropriate, though groggy. On informal bedside MELISSA evaluation of the LV, the EF was quite high and LVEDV appeared very low. The patient responded to a fluid challenge with 1L crystalloid and 500cc of 5% albumin. I spoke with the laundry superintendent who will monitor the patient in the ICU.
[2017-04-26] MEDS: ONDANSETRON INJ 2 MG/ML 2 ML VIAL IV PRN (15:41)
--- NOTE | 2017-04-26 15:41 | OPERATIVE REPORT ---
DATE OF OPERATION: 04/26/2017 PREOPERATIVE DIAGNOSES: 1. Adenocarcinoma, right upper lobe. 2. 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 3. History of light cigarette smoking. POSTOPERATIVE DIAGNOSES: Same. PROCEDURE: 1. Robot assisted right upper lobectomy. 2. Emergent anterior thoracotomy with repair of pulmonary artery. 3. Wedge resection of right lower lobe mass. SURGEON: Dr. Ascencio. TESTING AND REGULATING CHIEF: Layton Bravo PA-C. ANESTHESIA: General anesthesia endotracheal intubation. 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 She has a history of anal squamous cell carcinoma diagnosed 3 years ago which was treated with radiation and chemotherapy. She did not do well with the chemotherapy and had exacerbation of her underlying peripheral neuropathy. She was found to have three masses in her lungs. There was a right upper lobe mass, a left lower loobe mass and a right lower lobe mass. She had a radiofrequency catheter ablation of the right lower lobe metastases. However, she had a right upper lobe and a lingular abnormalities which were treated empirically with SBRT. She has been rather quiescent for the last year or so; in October she had a CT scan which was stable, but in March had one repeated and this showed a rapidly growing mass in the right upper lobe. I performed a navigational bronchoscopy and this is an apparent adenocarcinoma which is different than her squamous cell carcinoma. I am concerned that we are dealing with a lung primary. This patient has received her maximal amount of radiation. She does not tolerate chemotherapy well, although she has been on Opdivo for the last several months. What is interesting is her left lingula and her right lower lobe masses have not changed on the CT. We had a long discussion and there is a great deal of debate and the patient was quite desirous of having this removed. We have very few options left. We decided to proceed with a robotic lobectomy. On 04/25/1917 the patient was brought to the operating room and we performed a robotic lobectomy. We easily divided the vein to the upper lobe as well as to the arterial branches and the bronchus. We also divided the anterior fissure and as we were firing the stapler across the posterior fissure there was a tear in the pulmonary artery. We gained control and then performed an anterior thoracotomy over this and we then easily repaired this, although we did lose over a liter of blood. We then finished the lobe and did a full lymph node dissection. Also, wedged out the mass of the right lower lobe. She was extubated in the room. She tolerated it well and was on no vasopressors at the conclusion of the case. Unfortunately, it appears that the bronchial margin has microscopic disease. Our parenchymal margins appear to be negative. This was disconcerting however I did not feel that a sleeve resection was warranted for a couple reasons. One is the patient does use steroids chronically even though it is low dose. Another is that she has received significant amount of radiation to this area. In addition, her bronchus intermedius was small and I was concerned about the size discrepancy. PROCEDURE: The patient was brought to the operating room and laid in supine position. General anesthesia induced and endotracheal intubation was performed. I initially entered with a 5 mm scope. This thoracoscopic then allowed us to take down adhesions of the upper lobe and lower lobe. She had fairly complete fissures. Interestingly enough her lungs were quite pink. I then placed our trocars. A 5 mm trocar was placed in the seventh interspace posteriorly and then 10 cm more medial in the seventh interspace an 8 mm port was placed and a 12 mm camera port and then an 8 mm anterior port. A 12 mm assistance port was placed 2 interspaces below this in the ninth interspace and also it was equal distance between the third and fourth ports. I used the cautery to take down the adhesions and this came down quite nicely. These were not very dense. I then started posteriorly and dissected out the posterior hilum and identified the azygos vein and a level 7 node, a level 10 node, and level 8 nodes were dissected free as I opened up the pleura. I also identified the posterior aspect of the upper lobe bronchus and dissected this out superiorly and inferiorly; however, did not get quite all the way around it. There was some fibrosis here and so I then brought the lung more posteriorly and then a bit inferiorly and opened up the pleura, dissected out level 10 and easily came upon the first branch of the pulmonary artery. After removing the lymph nodes it could be seen that it would be easy to take the arterial trunk here. I then dissected out the right upper lobe vein and it from the middle lobe vein and got around this quite easily too. I fired Endo-JEANNINE stapler across the apical anterior trunk which trifurcated. This improved our visualization greatly. I was also dissecting out lymph nodes and actually took a level 4 node as well as several level 10 nodes at this point. We then divided the right upper lobe vein. I followed the pulmonary artery down until we could see that the branches of the middle lobe. I then fired Endo-JEANNINE stapler across the anterior fissure and got down to the vessel. We then fired an Endo-JEANNINE stapler across the more medial aspect of the fissure between the upper lobe and lower lobe and we noted bleeding when we retracted the lung. There was some fibrosis here and even though I had dissected this out there was a tear in the pulmonary artery from traction upwards. I was able to finally grasp this with a Cadiere clamp and controlled the bleeding. We undocked the other arms, put our thoracoscope back in the assistance port and then removed the robotic scope and then made a thoracotomy in the sixth interspace over the area of bleeding. I did not place any retractors but our interspaces were far enough apart where I could get a tonsil ball and forceps and I held pressure while we released the Cadiere and then undocked the robot and removed it completely. I then placed retractors in the thoracotomy incision and came down upon the artery. I got proximal control and placed a vascular clamp and then I was able to use a pledgeted suture with 5-0 Prolene to close this tear. This tear of the pulmonary artery was where the continuation of pulmonary artery came off. I did not compromise this and I also did not divide this vessel. I thoroughly irrigated and inspected the chest. I then used a stapler and divided the remaining fissure. I also removed a portion of the middle lobe anteriorly that appeared to be dusky. We did a complete lymph node dissection taking level 8, 9, 2, 4, 7, 10, 11 and 12 nodes out. The specimen was delivered off the field. While waiting I also wedged out the mass in the lower lobe without difficulty using an Endo-JEANNINE stapler x2. We then used 266 mg of Exparel and did a complete block from the 2nd to 11th rib intrathoracically. We really did not have much of an air leak when we inflated the lung. We then placed a chest tube through the anterior thoracoscopy port and directed towards the apex, sutured in place with heavy silk suture. As I was closing the chest incision with pericostal sutures Dr. Szymanski called back and said that the bronchial margin was positive; however he could not tell if this was squamous cell or adeno but did feel that it was more likely squamous cell carcinoma. I reopened the chest, put my retractors back in and inspected it and technically I think we could easily easily done a sleeve resection. I was concerned about the size of the bronchus intermedius and there was discrepancy between the right mainstem bronchus. In addition, if this indeed is a squamous cell it is metastatic and I do not believe it would be núñez to proceed with a more aggressive dissection. She was also on steroids and received significant radiation to this area. I elected to close. A #1 PDS was used to reapproximate the ribs, 0 Vicryl was used to close the muscle layers of the thoracotomy incision as well as the other thoracoscopy ports and then 4-0 Monocryl was used in a subcuticular fashion to approximate the wound edges. She received 2 units of blood in the OR. She did drop her pressure, but responded to resuscitation with fluid and with inotropes and she was off all inotropes at the conclusion of the case. She was extubated and cognizant when we left for the PACU. I attest to the content of the Intraoperative Record and any orders documented therein. Any exceptions are noted below. NANY
[2017-04-26] MEDS: MoRPHine SULFATE 2 MG/ML CARP IV PRN ×2 (15:52→22:34)
[2017-04-26] MEDS: ACETAMINOPHEN IV 1,000 MG in EMPTY BAG 0 ML IV SCH (16:10)
[2017-04-26] MEDS: CLINDAMYCIN IV 900 MG in DEXTROSE 5% 100ML 100 ML IV SCH ×2 (16:15→22:23)
[2017-04-26] MEDS: HYDROCORTISONE IV 50 MG in SYRINGE 0 ML IV SCH (16:15)
[2017-04-26] MEDS: METOCLOPRAMIDE HCL INJ 5 MG/ML 2 ML VIAL IV. SCH (16:21)
--- NOTE | 2017-04-26 19:10 | Critical Care Consultation ---
Critical Care Consultation Date of Consultation: Apr 26, 2017. Attending Physician: Manfred Ascencio MD Reason for Consultation: Post-op management History of Present Illness This is a 71 year-old female POD#0 s/p VATS converted to right thoracotomy for RUL lobectomy for adenocarcinoma as well as wedge resection of RLL mass. At the end of the VATS procedure she developed significant bleeding, was converted to thoracotomy, was transfused. Eventually the bleeding was controlled , patient was extubated. Currently in the ICU, up in chair The patient has h/o renal cell carcinoma with lung mets, treated with radiation and chemotherapy. She was found to have a RUL enlarging mass, that was proven to be a lung primary adenocarcinoma. Past Medical/Surgical History Renal cell CA Lung cancer Asthma Family History Diabetes mellitus FH: gallbladder disease FH: heart disease Kidney stones Social History Smoking Status: Former Smoker Drug Use: none Marital Status: Housing Status: lives alone Occupation Status: employed Allergies Coded Allergies: Amoxicillin (Verified Allergy, Severe, SLIGHT TONGUE SWELLING, 04/26/17) Home Medications Scheduled Budesonide/Formoterol Fumarate (Symbicort 160-4.5 Mcg/Act), 2 PUFFS INH BID Clobetasol Propionate (Clobetasol Propionate), 1 APPLN TOP BID Ibuprofen Tab (Advil), 400 MG PO QPM Levothyroxine Sodium (Levothyroxine Sodium), 1 TAB PO QAM Prednisone (Prednisone), 7.5 MG PO QAM Scheduled PRN Albuterol Hfa (Ventolin Hfa), 2 PUFFS INH Q4 PRN for SOB/Wheezing Current Inpatient Medications Current Inpatient Medications Medications (Trade) Dose Ordered Sig/Moiz Route Start Time Stop Time Status Last Admin Dose Admin Hydrocortisone Sodium Succinate 50 mg/Syringe 1 ml @ 4 mls/min Q8@0000,0800,1600 IV 04/26/17 16:00 04/28/17 08:01 04/26/17 16:15 4 MLS/MIN Albuterol (Ventolin Hfa Inhaler) 2 puffs Q4H PRN INH 04/26/17 13:00 05/26/17 12:59 Budesonide/ Formoterol Fumarate (Symbicort 160/ 4.5 Inh) 2 puffs BID INH 04/26/17 21:00 05/26/17 20:59 Levothyroxine Sodium (Synthroid Tab) 112 mcg DAILYBB PO 04/27/17 06:00 05/27/17 05:59 Clobetasol Propionate (Clobetasol Propionate Oint) 1 appln BID EXT 04/26/17 21:00 05/03/17 09:01 Enoxaparin Sodium (Lovenox Inj) 40 mg DAILY SQ 04/27/17 09:00 05/27/17 08:59 Dextrose/Sodium Chloride 1,000 ml @ 100 mls/hr Q10H IV 04/26/17 12:56 05/26/17 12:55 04/26/17 16:10 100 MLS/HR Ondansetron HCl (Zofran Inj) 4 mg Q4H PRN IV 04/26/17 13:00 05/26/17 12:59 04/26/17 15:41 4 MG Docusate Sodium (coLACE CAP) 100 mg BID PO 04/26/17 21:00 05/26/17 20:59 Clindamycin Phosphate 900 mg/ Dextrose 106 ml @ 100 mls/hr Q6H IV 04/26/17 16:00 04/26/17 23:04 04/26/17 16:15 100 MLS/HR Metoclopramide HCl (Reglan Inj) 10 mg Q8H IV. 04/26/17 16:00 04/27/17 08:01 04/26/17 16:21 10 MG Morphine Sulfate (MoRPHine SULFATE INJ) 2 mg Q1H PRN IV 04/26/17 13:00 05/10/17 12:59 04/26/17 15:52 2 MG Oxycodone HCl (Roxicodone Immediate Rel Tab) 5 mg Q6H PRN PO 04/26/17 13:00 05/10/17 12:59 Acetaminophen 1000 mg/Empty Bag 100 ml @ 400 mls/hr Q8H IV 04/26/17 16:00 05/26/17 15:59 04/26/17 16:10 400 MLS/HR Albuterol/ Ipratropium (Duoneb) 3 ml Q4H PRN INH 04/26/17 13:15 05/26/17 13:14 Morphine Sulfate (MoRPHine SULFATE INJ) 1 mg Q1H PRN IV 04/26/17 13:15 05/10/17 13:14 Review of Systems Per HPI, all other systems reviewed an negative Physical Exam Date Time Temp Pulse Resp B/P (MAP) Pulse Ox O2 Delivery O2 Flow Rate FiO2 04/26/17 17:48 86 18 104/52 (69) 100 04/26/17 17:15 57 14 94/45 (61) 100 04/26/17 17:01 64 0 90/49 (63) 100 04/26/17 17:00 36.6 65 12 89/49 (62) 100 04/26/17 16:45 76 23 92/56 (68) 97 04/26/17 16:30 66 17 100/51 (67) 98 04/26/17 16:20 64 18 93/49 (64) 99 04/26/17 16:15 64 17 97/50 (66) 98 04/26/17 16:01 66 19 87/49 (62) 99 04/26/17 16:00 99 Oxyhood 04/26/17 16:00 96 Oxymask 2.0 04/26/17 16:00 36.4 65 17 92/47 (62) 99 Oxymask 2.0 04/26/17 16:00 67 17 84/48 (60) 98 04/26/17 15:45 73 20 98/53 (68) 98 04/26/17 15:43 75 18 91/46 (61) 96 04/26/17 15:32 74 20 96/54 (68) 97 04/26/17 15:30 74 18 99/55 (70) 98 04/26/17 15:00 68 20 90/41 100 04/26/17 15:00 68 20 04/26/17 14:58 91/46 04/26/17 14:57 88/40 04/26/17 14:55 73 16 98/32 100 04/26/17 14:55 73 16 04/26/17 14:53 87/50 04/26/17 14:51 95/45 04/26/17 14:50 74 19 04/26/17 14:50 74 19 88/42 100 04/26/17 14:49 90/50 04/26/17 14:47 90/33 04/26/17 14:45 75 17 04/26/17 14:45 75 17 99/39 100 04/26/17 14:43 76/49 04/26/17 14:40 75 20 97/42 100 04/26/17 14:40 75 20 04/26/17 14:39 82/57 04/26/17 14:37 36.2 74 18 97/42 (60) 100 Mask 4 88/42 04/26/17 14:37 92/56 04/26/17 14:35 76 19 83/42 100 04/26/17 14:35 76 19 04/26/17 14:34 89/40 04/26/17 14:31 74 16 04/26/17 14:31 74 16 97/54 98 04/26/17 14:29 86/56 04/26/17 14:27 88/43 04/26/17 14:26 68 17 04/26/17 14:26 68 17 87/40 04/26/17 14:25 91/36 04/26/17 14:23 84/41 04/26/17 14:21 68 18 83/40 100 04/26/17 14:21 67 18 04/26/17 14:20 97/42 04/26/17 14:17 91/47 04/26/17 14:16 64 15 04/26/17 14:16 64 15 86/40 100 04/26/17 14:15 88/49 04/26/17 14:13 93/39 04/26/17 14:11 66 18 04/26/17 14:11 67 18 78/37 100 04/26/17 14:09 75/39 04/26/17 14:07 91/49 04/26/17 14:07 123/77 04/26/17 14:06 70 23 77/39 100 04/26/17 14:06 70 23 04/26/17 14:05 85/49 04/26/17 14:03 86/44 04/26/17 14:02 68 22 80/40 100 04/26/17 14:02 68 22 04/26/17 14:01 82/33 04/26/17 13:58 80/40 04/26/17 13:58 82/38 04/26/17 13:57 16 04/26/17 13:57 65 16 79/39 04/26/17 13:55 90/37 04/26/17 13:53 78/38 04/26/17 13:52 66 15 04/26/17 13:52 66 15 58/26 04/26/17 13:51 77/43 04/26/17 13:47 67 17 84/44 100 04/26/17 13:47 67 17 04/26/17 13:44 85/38 04/26/17 13:43 78/38 04/26/17 13:42 67 15 62/28 04/26/17 13:42 66 15 04/26/17 13:41 93/43 04/26/17 13:37 70 13 04/26/17 13:37 70 13 287/-50 100 04/26/17 13:36 79/49 04/26/17 13:34 89/45 04/26/17 13:32 74 17 04/26/17 13:32 75 17 94/39 100 04/26/17 13:27 78 16 92/43 100 04/26/17 13:27 78 16 04/26/17 13:26 117/50 04/26/17 13:23 81 18 04/26/17 13:23 80 18 104/50 100 04/26/17 13:22 129/51 04/26/17 13:18 85 21 130/59 100 04/26/17 13:18 86 21 04/26/17 13:16 156/115 04/26/17 13:14 154/55 04/26/17 13:13 88 13 167/69 98 04/26/17 13:13 35.7 89 16 154/55 100 Mask 10 04/26/17 13:13 86 13 04/26/17 06:12 36.9 83 18 163/92 98 Room Air General: NAD, up in chair, thin built HEENT: NC/AT Neck: Supple, trachea midline Lungs: R>L rhonchi Chest: Right sided chest tube, thoracotomy wound dressed, small amount of crepitus over right posterior chest wall CVS: S1S2 regular, no audible murmurs Abdomen: Soft, NT, NT Ext: no edema, left radial a-line Laboratory Results Last 24 Hours Test 04/26/17 11:22 04/26/17 11:25 04/26/17 13:37 04/26/17 13:38 Bedside Hemoglobin 7.1 g/dl Bedside Hematocrit 21 % Bedside Sodium 140 mEq/L Bedside Potassium 4.4 mEq/L Bedside Chloride 107 mEq/L Bedside Total CO2 26 mEq/l Anion Gap 12.0 mmol/L Bedside Blood Urea Nitrogen 25 mg/dl Bedside Creatinine 0.8 mg/dl Bedside Glucose (other) 210 mg/dl Bedside Ionized Calcium (Laura) 1.13 mmol/l Hemoglobin 7.8 g/dL 10.2 g/dL Hematocrit 24.7 % 31.1 % Prothrombin Time 12.1 SECONDS Prothromb Time International Ratio 1.1 Activated Partial Thromboplast Time 26.2 SECONDS Partial Thromboplastin Ratio 1.0 White Blood Count 11.49 K/uL Red Blood Count 3.19 M/uL Mean Corpuscular Volume 97.5 fL Mean Corpuscular Hemoglobin 32.0 pg Mean Corpuscular Hemoglobin Concent 32.8 g/dl Platelet Count 117 K/uL Mean Platelet Volume 9.1 fL Neutrophils (%) (Auto) 87.6 % Lymphocytes (%) (Auto) 7.0 % Monocytes (%) (Auto) 4.8 % Eosinophils (%) (Auto) 0.2 % Basophils (%) (Auto) 0.1 % Neutrophils # (Auto) 10.06 K/uL Lymphocytes # (Auto) 0.81 K/uL Monocytes # (Auto) 0.55 K/uL Eosinophils # (Auto) 0.02 K/uL Basophils # (Auto) 0.01 K/uL RDW Standard Deviation 50.0 fL RDW Coefficient of Variation 13.9 % Immature Granulocyte % (Auto) 0.3 % Immature Granulocyte # (Auto) 0.04 K/uL Test 04/26/17 16:05 Bedside Glucose 122 mg/dl Diagnostic Results CXR today: 1. Emphysema and postoperative change from right upper lobe pulmonary resection as above. 2. A chest tube is present the right apex. No definite pneumothorax is seen. 3. Airspace opacities are seen in the right mid to lower lung, likely on a postoperative basis. Attention at follow-up is recommended. Assessment & Plan Impression: 71 year old female with h/o metastatic renal cell CA s/p RUL lobectomy for new primary lung adenocarcinoma, complicated by intra-thoracic hemorrhage. 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 Has 5+ air leak. Monitor bloody output, 250 ml so far prn bronchodilators q 12 h budesonide nebs CVS: HD stable now. Had hypotensive episode in PACU, was found to have a hyperdynamic ventricle Maintain on IV fluids, NS @ 125 ml.hr Heme: Monitor CBC q 4 hourly, transfuse as needed Renal/metabolic: Keep Jacobs in, reassess tomorrow. She has an adequate urine output GI: Diet Endo: steroids escalated to stress dose, on hydrocortisone 50 mg q 8 since she was on chronic Prednisone as outpatient DVT prophylaxis: SCDs Critical care time spent greater than 35 minutes
[2017-04-26 19:27] LABS: HEMATOCRIT 23.6 % (37-47); MEAN CELL VOLUME 94.8 fL (80-100); MEAN CORPUSCULAR HEMOGLOBIN 32.9 pg (25-34); RED BLOOD COUNT 2.49 M/uL (4.2-5.4); WHITE BLOOD COUNT 8.99 K/uL (4.8-10.8)
[2017-04-26] MEDS: DOCUSATE SODIUM 100 MG CAP PO SCH (19:46)
[2017-04-26] MEDS: CLOBETASOL PROPIONATE 0.05% OINT 15 GM TUBE EXT SCH (19:46)
[2017-04-26] MEDS: BUDESONIDE/FORMOTEROL FUMARATE 160/4.5 60 PUFFS/INHALER INH SCH (19:47)
[2017-04-26 19:52] LABS: MEAN CORPUSCULAR HGB CONC 34.7 g/dl (32-36); MEAN PLATELET VOLUME 8.8 fL (7.4-10.4); PLATELET COUNT 86 K/uL (130-400)
[2017-04-26 19:57] LABS: PLT ESTIMATE DECREASED
[2017-04-26] MEDS: SODIUM CHLORIDE 0.9% 1000ML 1,000 ML IV SCH (22:23)
[2017-04-27] VITALS (49 sets, daily range): BP systolic 74–148; BP diastolic 24–72; PULSE 53–83; TEMP 36.5–37; O2SAT 85–100
[2017-04-27] MEDS: ACETAMINOPHEN IV 1,000 MG in EMPTY BAG 0 ML IV SCH ×4 (00:17→23:43)
[2017-04-27] MEDS: METOCLOPRAMIDE HCL INJ 5 MG/ML 2 ML VIAL IV. SCH ×2 (00:17→08:30)
[2017-04-27] MEDS: HYDROCORTISONE IV 50 MG in SYRINGE 0 ML IV SCH (00:18)
[2017-04-27] MEDS: MoRPHine SULFATE 2 MG/ML CARP IV PRN ×4 (00:19→23:43)
[2017-04-27 03:42] LABS: HEMATOCRIT 25.6 % (37-47); MEAN CELL VOLUME 93.4 fL (80-100); MEAN CORPUSCULAR HEMOGLOBIN 32.5 pg (25-34); MEAN CORPUSCULAR HGB CONC 34.8 g/dl (32-36); RED BLOOD COUNT 2.74 M/uL (4.2-5.4); WHITE BLOOD COUNT 7.88 K/uL (4.8-10.8)
[2017-04-27 03:47] LABS: MEAN PLATELET VOLUME 8.9 fL (7.4-10.4); PLATELET COUNT 82 K/uL (130-400)
[2017-04-27 04:06] LABS: BUN/CREATININE RATIO 29.8 (10-20); CREATININE 0.8 mg/dl (0.60-1.20); MAGNESIUM 1.6 mg/dl (1.8-2.4); POTASSIUM 4.5 mmol/L (3.5-5.1)
[2017-04-27 04:09] LABS: ALB/GLOB RATIO 1.5 (0.9-2); PHOSPHORUS 3.6 mg/dl (2.5-4.9)
[2017-04-27 04:59] LABS: BASO % 0.1 %; BASO ABS # 0.01 K/uL (0-0.2); COMPLETE YES; IG% 0.3 %; LYMPH % 5.8 %; LYMPH ABS # 0.46 K/uL (1.2-3.4); MONO % 5.5 %; NEUT % 88.3 %
[2017-04-27] MEDS: LEVOTHYROXINE 112 MCG TAB PO SCH (06:00)
--- NOTE | 2017-04-27 07:28 | DIAGNOSTIC IMAGING REPORT ---
CHEST ONE VIEW PORTABLE CLINICAL HISTORY: 71 years-old Female presenting with S/p rRUL lobectomy. TECHNIQUE: Portable upright AP view of the chest was obtained. COMPARISON: 04/26/2017. FINDINGS: Right subclavian Mediport terminates in the SVC. Large bore right pleural drain terminates in the right upper pleural space. Subcutaneous emphysema noted along the right lateral chest wall on the right base of the neck. Small paramediastinal right apical lucency. Cardiomediastinal silhouette within normal limits. Suture margin noted in the right mid lung. Linear opacity at the left mid lung base, possibly atelectasis or scarring. No new focal infiltrate. No large effusion. Osseous structures normal. Upper abdomen normal. IMPRESSION: 1. Possible trace right paramediastinal pneumothorax versus small amount of pneumomediastinum. 2. Right subclavian Mediport and large bore right pleural [address] 3. Postsurgical changes and atelectasis/scarring unchanged. No new focal infiltrate. Electronically signed by: Chaitanya Hall M.D. 04/27/2017 7:27 AM Dictated Date/Time: 04/27/2017 7:24 AM
[2017-04-27] MEDS: SODIUM CHLORIDE 0.9% 1000ML 1,000 ML IV SCH (08:16)
[2017-04-27] MEDS: DOCUSATE SODIUM 100 MG CAP PO SCH ×2 (08:22→21:00)
[2017-04-27] MEDS: ENOXAPARIN 40 MG/0.4 ML SYR SQ SCH (08:25)
[2017-04-27] MEDS: BUDESONIDE/FORMOTEROL FUMARATE 160/4.5 60 PUFFS/INHALER INH SCH ×2 (08:30→21:00)
[2017-04-27] MEDS: CLOBETASOL PROPIONATE 0.05% OINT 15 GM TUBE EXT SCH ×2 (08:30→21:00)
--- NOTE | 2017-04-27 08:43 | SURGERY PROGRESS NOTE ---
DATE: 04/27/2017 SUBJECTIVE: Ms. Crowley is sitting up having just and after breakfast. She underwent a robotic phlebectomy. We had to urgently convert to a thoracotomy for a tear in the pulmonary artery, which we repaired. She still has an air leak, although much better and intermittent today. She drained about 250 mL of serous bloody fluid. Her x-ray looks good. Her lung is expanded. She does have some pain. Her vital signs are stable as is her lab work. She received another unit of blood last night. Her hemoglobin was 8.2 yesterday afternoon and 8.9 this morning. Her vital signs have been stable. Her blood pressure does run a bit low. She is moving air well on the right side on exam. She is awake, alert and conversive. We discussed the events from yesterday. ASSESSMENT AND PLAN: Postoperative day #1, status post robot-assisted thoracoscopic right upper lobectomy with conversion to thoracotomy to repair a hole in the pulmonary artery. We are going to transfer up to 3 surgical and just continue to monitor other lines and get her up and moving. She does look good in the chair this morning. NAYN
[2017-04-27] MEDS ORDERED: NURSING VERBAL MED ORDER ONE (09:00)
[2017-04-27] MEDS ORDERED: MAGNESIUM SULFATE 1GM / D5W 1 GM in PREMIXED IN D5W 100 ML IV ONE (09:30)
--- NOTE | 2017-04-27 13:40 | Critical Care Progress Note ---
Critical Care Progress Note Date of Service Apr 27, 2017. Attending Dr. Harris Subjective Feels better today. She does have pain at the surgical site, but was able to move around, sat up in the chair. Chest tube output less bloody today. Received an additional unit PRBC last night Objective General: NAD, up in chair, thin built HEENT: NC/AT Neck: Supple, trachea midline Lungs: R>L rhonchi Chest: Right sided chest tube, thoracotomy wound dressed, no crepitus felt CVS: S1S2 regular, no audible murmurs Abdomen: Soft, NT, NT Ext: no edema CXR today: 1. Possible trace right paramediastinal pneumothorax versus small amount of pneumomediastinum. 2. Right subclavian Mediport and large bore right pleural [address] 3. Postsurgical changes and atelectasis/scarring unchanged. No new focal infiltrate. Assessment & Plan Impression: 71 year old female with h/o metastatic renal cell CA s/p RUL lobectomy for new primary lung adenocarcinoma, complicated by intra-thoracic hemorrhage. Plan: ECLECTIC DOCTOR: analgesia as needed, Morphine ordered Pulmonary: Keep chest tube on suction. Has 5+ air leak. Monitor output, less bloody prn bronchodilators q 12 h budesonide nebs CVS: HD stable now. Had hypotensive episode in PACU, was found to have a hyperdynamic ventricle Was hydrated, remained HD stable. Can come off iv fluids Heme: No evidence of ongoing bleeding Renal/metabolic: December d/c [facility] She has an adequate urine output GI: Diet Endo: steroids escalated to stress dose, on hydrocortisone 50 mg q 8 since she was on chronic Prednisone as outpatient. Switching back to Prednisone today DVT prophylaxis: SCDs Critical care time spent greater than 25 minutes May be transferred to regular floor today, will sign off Consults & Procedures Consultants: Thoracic surgery - Dr Ascencio Procedures: 04/27/17 - VATS with RUL lobectomy and RLL wedge resection Data Medications: Current Inpatient Medications Medications (Trade) Dose Ordered Sig/Moiz Route Start Time Stop Time Status Last Admin Dose Admin Albuterol (Ventolin Hfa Inhaler) 2 puffs Q4H PRN INH 04/26/17 13:00 05/26/17 12:59 Budesonide/ Formoterol Fumarate (Symbicort 160/ 4.5 Inh) 2 puffs BID INH 04/26/17 21:00 05/26/17 20:59 04/27/17 08:30 2 PUFFS Levothyroxine Sodium (Synthroid Tab) 112 mcg DAILYBB PO 04/27/17 06:00 05/27/17 05:59 04/27/17 06:00 112 MCG Clobetasol Propionate (Clobetasol Propionate Oint) 1 appln BID EXT 04/26/17 21:00 05/03/17 09:01 04/27/17 08:30 1 APPLN Enoxaparin Sodium (Lovenox Inj) 40 mg DAILY SQ 04/27/17 09:00 05/27/17 08:59 04/27/17 08:25 40 MG Ondansetron HCl (Zofran Inj) 4 mg Q4H PRN IV 04/26/17 13:00 05/26/17 12:59 04/26/17 15:41 4 MG Docusate Sodium (coLACE CAP) 100 mg BID PO 04/26/17 21:00 05/26/17 20:59 04/27/17 08:22 100 MG Oxycodone HCl (Roxicodone Immediate Rel Tab) 5 mg Q6H PRN PO 04/26/17 13:00 05/10/17 12:59 04/26/17 19:48 5 MG Acetaminophen 1000 mg/Empty Bag 100 ml @ 400 mls/hr Q8H IV 04/26/17 16:00 05/26/17 15:59 04/27/17 08:22 400 MLS/HR Albuterol/ Ipratropium (Duoneb) 3 ml Q4H PRN INH 04/26/17 13:15 05/26/17 13:14 Morphine Sulfate (MoRPHine SULFATE INJ) 1 mg Q1H PRN IV 04/26/17 13:15 05/10/17 13:14 Prednisone (PredniSONE TAB) 7.5 mg QAM PO 04/27/17 09:00 05/27/17 08:59 04/27/17 09:30 7.5 MG Ketorolac Tromethamine (Toradol Inj) 15 mg Q6H PRN IV 04/27/17 08:30 05/02/17 08:29 Vital Signs: Date Time Temp Pulse Resp B/P (MAP) Pulse Ox O2 Delivery O2 Flow Rate FiO2 04/27/17 11:10 36.7 78 14 115/68 (84) 94 Room Air 04/27/17 11:10 94 Room Air 04/27/17 10:56 36.7 53 14 100 2.0 04/27/17 09:46 53 14 103/46 (65) 100 2.0 04/27/17 09:41 76 26 112/48 (69) 2.0 04/27/17 09:31 64 19 87/40 (56) 100 2.0 04/27/17 09:15 64 18 86/42 (57) 100 2.0 04/27/17 09:00 75 22 90/39 (56) 100 2.0 04/27/17 08:45 64 21 87/41 (56) 100 2.0 04/27/17 08:30 73 20 92/47 (62) 100 2.0 04/27/17 08:15 78 22 100/56 (71) 93 2.0 04/27/17 08:04 98 Nasal Cannula 1.0 04/27/17 08:04 98 Nasal Cannula 1.0 04/27/17 08:00 36.7 74 16 103/51 (68) 99 2.0 04/27/17 07:46 73 18 85/38 (54) 99 1.0 04/27/17 07:31 71 20 79/41 (54) 99 1.0 04/27/17 07:15 66 21 94/43 (60) 98 1.0 04/27/17 07:00 65 18 90/47 (61) 98 04/27/17 06:15 72 15 92/48 (56) 97 79/31 04/27/17 06:00 80 19 99/50 (62) 98 87/41 04/27/17 05:46 75 21 85/39 (46) 96 77/31 04/27/17 05:45 75 21 (51) 97 81/34 04/27/17 05:30 79 22 99/49 (60) 90 86/37 04/27/17 05:28 77 22 95/47 (55) 92 89/33 04/27/17 05:00 57 15 85/41 (52) 100 94/40 04/27/17 04:45 55 20 78/42 (54) 99 96/44 04/27/17 04:30 60 19 89/43 (55) 99 100/45 04/27/17 04:15 56 20 81/39 (56) 96 97/44 04/27/17 04:00 98 Oxymask 2.0 04/27/17 04:00 58 17 82/41 (51) 98 90/43 04/27/17 03:45 57 15 74/37 (49) 98 89/43 04/27/17 03:31 64 21 92/54 (53) 100 90/24 04/27/17 03:30 62 21 (63) 98 98/43 04/27/17 03:15 59 18 86/42 (54) 98 97/47 04/27/17 03:00 68 20 90/47 (56) 97 105/51 04/27/17 02:45 73 18 95/42 (54) 97 99/43 04/27/17 02:30 56 20 86/43 (56) 100 96/41 04/27/17 02:15 62 18 93/44 (56) 100 96/42 04/27/17 02:00 58 17 85/43 (53) 100 90/39 04/27/17 01:45 56 16 78/41 (55) 100 89/39 04/27/17 01:30 59 16 84/42 (52) 99 91/38 04/27/17 01:15 60 14 78/40 (53) 99 88/38 04/27/17 01:00 59 14 78/36 (49) 99 80/36 04/27/17 00:45 63 19 74/39 (48) 97 82/37 04/27/17 00:30 72 19 84/44 (52) 99 99/43 04/27/17 00:30 36.9 72 19 84/44 99 2.0 04/27/17 00:15 74 23 99/51 (60) 100 98/47 04/27/17 00:02 37.0 73 22 105/43 99 2.0 04/27/17 00:00 80 21 88/55 (60) 99 101/44 04/26/17 23:59 95 Oxymask 2.0 04/26/17 23:45 70 19 87/43 (57) 95 92/38 04/26/17 23:32 36.8 73 19 94/41 95 2.0 04/26/17 23:30 71 17 85/42 (54) 95 91/40 04/26/17 23:15 75 22 88/43 (57) 94 92/40 04/26/17 23:02 36.7 78 20 98/43 94 2.0 04/26/17 23:00 78 21 93/46 (57) 92 84/40 04/26/17 22:45 79 18 86/45 (54) 98 92/40 04/26/17 22:32 36.7 76 21 107/48 100 2.0 04/26/17 22:30 81 22 99/54 (59) 100 101/50 04/26/17 22:00 67 18 82/44 (49) 98 90/42 04/26/17 21:00 74 17 86/47 (57) 95 106/46 04/26/17 20:45 70 18 (60) 96 99/45 04/26/17 20:30 81 17 (59) 94 88/44 04/26/17 20:30 81 17 (59) 94 88/44 04/26/17 20:15 69 17 (57) 96 92/43 04/26/17 20:00 72 21 94/45 (66) 100 107/48 04/26/17 20:00 96 Oxymask 2.0 04/26/17 19:45 68 17 (61) 98 93/44 04/26/17 19:30 76 (66) 97 100/47 04/26/17 19:25 75 18 81/34 (55) 94 04/26/17 19:06 81 25 69/37 (43) 58/29 04/26/17 19:05 82 23 65/36 (45) 56/29 04/26/17 19:01 80 14 66/33 (34) 99 52/27 04/26/17 19:00 83 23 (34) 99 50/27 04/26/17 17:48 86 18 104/52 (69) 100 04/26/17 17:15 57 14 94/45 (61) 100 04/26/17 17:01 64 0 90/49 (63) 100 04/26/17 17:00 36.6 65 12 89/49 (62) 100 04/26/17 16:45 76 23 92/56 (68) 97 8/25/17 16:30 66 17 100/51 (67) 98 04/26/17 16:20 64 18 93/49 (64) 99 04/26/17 16:15 64 17 97/50 (66) 98 04/26/17 16:01 66 19 87/49 (62) 99 04/26/17 16:00 99 Oxyhood 04/26/17 16:00 96 Oxymask 2.0 04/26/17 16:00 36.4 65 17 92/47 (62) 99 Oxymask 2.0 04/26/17 16:00 67 17 84/48 (60) 98 04/26/17 15:45 73 20 98/53 (68) 98 04/26/17 15:43 75 18 91/46 (61) 96 04/26/17 15:32 74 20 96/54 (68) 97 04/26/17 15:30 74 18 99/55 (70) 98 04/26/17 15:00 68 20 90/41 100 04/26/17 15:00 68 20 04/26/17 14:58 91/46 04/26/17 14:57 88/40 04/26/17 14:55 73 16 98/32 100 04/26/17 14:55 73 16 04/26/17 14:53 87/50 04/26/17 14:51 95/45 04/26/17 14:50 74 19 04/26/17 14:50 74 19 88/42 100 04/26/17 14:49 90/50 04/26/17 14:47 90/33 04/26/17 14:45 75 17 04/26/17 14:45 75 17 99/39 100 04/26/17 14:43 76/49 04/26/17 14:40 75 20 97/42 100 04/26/17 14:40 75 20 04/26/17 14:39 82/57 04/26/17 14:37 36.2 74 18 97/42 (60) 100 Mask 4 88/42 04/26/17 14:37 92/56 04/26/17 14:35 76 19 83/42 100 04/26/17 14:35 76 19 04/26/17 14:34 89/40 04/26/17 14:31 74 16 04/26/17 14:31 74 16 97/54 98 04/26/17 14:29 86/56 04/26/17 14:27 88/43 04/26/17 14:26 68 17 04/26/17 14:26 68 17 87/40 04/26/17 14:25 91/36 04/26/17 14:23 84/41 04/26/17 14:21 68 18 83/40 100 04/26/17 14:21 67 18 04/26/17 14:20 97/42 04/26/17 14:17 91/47 04/26/17 14:16 64 15 04/26/17 14:16 64 15 86/40 100 04/26/17 14:15 88/49 04/26/17 14:13 93/39 04/26/17 14:11 66 18 04/26/17 14:11 67 18 78/37 100 04/26/17 14:09 75/39 04/26/17 14:07 91/49 04/26/17 14:07 123/77 04/26/17 14:06 70 23 77/39 100 04/26/17 14:06 70 23 04/26/17 14:05 85/49 04/26/17 14:03 86/44 04/26/17 14:02 68 22 80/40 100 04/26/17 14:02 68 22 04/26/17 14:01 82/33 04/26/17 13:58 80/40 04/26/17 13:58 82/38 04/26/17 13:57 16 04/26/17 13:57 65 16 79/39 04/26/17 13:55 90/37 04/26/17 13:53 78/38 04/26/17 13:52 66 15 04/26/17 13:52 66 15 58/26 04/26/17 13:51 77/43 04/26/17 13:47 67 17 84/44 100 04/26/17 13:47 67 17 04/26/17 13:44 85/38 04/26/17 13:43 78/38 04/26/17 13:42 67 15 62/28 04/26/17 13:42 66 15 04/26/17 13:41 93/43 04/26/17 13:37 70 13 04/26/17 13:37 70 13 287/-50 100 04/26/17 13:36 79/49 04/26/17 13:34 89/45 04/26/17 13:32 74 17 04/26/17 13:32 75 17 94/39 100 04/26/17 13:27 78 16 92/43 100 04/26/17 13:27 78 16 04/26/17 13:26 117/50 04/26/17 13:23 81 18 04/26/17 13:23 80 18 104/50 100 04/26/17 13:22 129/51 04/26/17 13:18 85 21 130/59 100 04/26/17 13:18 86 21 04/26/17 13:16 156/115 04/26/17 13:14 154/55 04/26/17 13:13 88 13 167/69 98 04/26/17 13:13 35.7 89 16 154/55 100 Mask 10 04/26/17 13:13 86 13 Laboratory Results: Last 24 Hours Test 04/26/17 13:37 04/26/17 13:38 04/26/17 16:05 04/26/17 19:17 Prothrombin Time 12.1 SECONDS Prothromb Time International Ratio 1.1 Activated Partial Thromboplast Time 26.2 SECONDS Partial Thromboplastin Ratio 1.0 White Blood Count 11.49 K/uL 8.99 K/uL Red Blood Count 3.19 M/uL 2.49 M/uL Hemoglobin 10.2 g/dL 8.2 g/dL Hematocrit 31.1 % 23.6 % Mean Corpuscular Volume 97.5 fL 94.8 fL Mean Corpuscular Hemoglobin 32.0 pg 32.9 pg Mean Corpuscular Hemoglobin Concent 32.8 g/dl 34.7 g/dl Platelet Count 117 K/uL 86 K/uL Mean Platelet Volume 9.1 fL 8.8 fL Neutrophils (%) (Auto) 87.6 % Lymphocytes (%) (Auto) 7.0 % Monocytes (%) (Auto) 4.8 % Eosinophils (%) (Auto) 0.2 % Basophils (%) (Auto) 0.1 % Neutrophils # (Auto) 10.06 K/uL Lymphocytes # (Auto) 0.81 K/uL Monocytes # (Auto) 0.55 K/uL Eosinophils # (Auto) 0.02 K/uL Basophils # (Auto) 0.01 K/uL RDW Standard Deviation 50.0 fL 49.0 fL RDW Coefficient of Variation 13.9 % 14.2 % Immature Granulocyte % (Auto) 0.3 % Immature Granulocyte # (Auto) 0.04 K/uL Bedside Glucose 122 mg/dl Platelet Estimate DECREASED Lactic Acid Level 1.6 mmol/L Test 04/27/17 03:31 White Blood Count 7.88 K/uL Red Blood Count 2.74 M/uL Hemoglobin 8.9 g/dL Hematocrit 25.6 % Mean Corpuscular Volume 93.4 fL Mean Corpuscular Hemoglobin 32.5 pg Mean Corpuscular Hemoglobin Concent 34.8 g/dl Platelet Count 82 K/uL Mean Platelet Volume 8.9 fL Neutrophils (%) (Auto) 88.3 % Lymphocytes (%) (Auto) 5.8 % Monocytes (%) (Auto) 5.5 % Eosinophils (%) (Auto) 0.0 % Basophils (%) (Auto) 0.1 % Neutrophils # (Auto) 6.96 K/uL Lymphocytes # (Auto) 0.46 K/uL Monocytes # (Auto) 0.43 K/uL Eosinophils # (Auto) 0.00 K/uL Basophils # (Auto) 0.01 K/uL RDW Standard Deviation 52.1 fL RDW Coefficient of Variation 15.3 % Immature Granulocyte % (Auto) 0.3 % Immature Granulocyte # (Auto) 0.02 K/uL Red Blood Cell Morphology Unremarkable Sodium Level 139 mmol/L Potassium Level 4.5 mmol/L Chloride Level 111 mmol/L Carbon Dioxide Level 24 mmol/L Anion Gap 4.0 mmol/L Blood Urea Nitrogen 24 mg/dl Creatinine 0.80 mg/dl Est Creatinine Clear Calc Drug Dose 70.8 ml/min Estimated GFR () 86.6 Estimated GFR (Non- 74.7 BUN/Creatinine Ratio 29.8 Random Glucose 110 mg/dl Calcium Level 7.0 mg/dl Phosphorus Level 3.6 mg/dl Magnesium Level 1.6 mg/dl Total Bilirubin 0.5 mg/dl Aspartate Amino Transf (AST/SGOT) 39 U/L Alanine Aminotransferase (ALT/SGPT) 27 U/L Alkaline Phosphatase 29 U/L Total Protein 4.5 gm/dl Albumin 2.7 gm/dl Globulin 1.8 gm/dl Albumin/Globulin Ratio 1.5
[2017-04-27] MEDS ORDERED: IBUPROFEN 200 MG TAB PO SCH (21:00)
[2017-04-28] MEDS: MoRPHine SULFATE 2 MG/ML CARP IV PRN ×4 (01:59→16:01)
[2017-04-28 04:00] VITALS: O2SAT 97
[2017-04-28] MEDS: LEVOTHYROXINE 112 MCG TAB PO SCH (05:08)
[2017-04-28 05:19] VITALS: O2SAT 94
--- NOTE | 2017-04-28 07:38 | DIAGNOSTIC IMAGING REPORT ---
CHEST ONE VIEW PORTABLE HISTORY: 71 years-old Female s/p lobectomy . Pneumothorax follow-up. COMPARISON: Portable chest radiograph 04/27/2017 TECHNIQUE: Portable upright AP view of the chest FINDINGS: The patient is rotated to the right. The silhouette is within normal limits. No pneumothorax. Minimal subsegmental atelectasis or scarring involves left lung base. Lungs are hyperinflated. Right pectoral Vcceje-t-Vvac catheter is unchanged with distal tip near the superior cavoatrial junction. Right-sided chest tube is unchanged with distal tip near the right lung apex. Surgical sutures involve the right lung apex compatible with patient history of recent right upper lobectomy. Small right apical pneumothorax is noted with initial visceropleural separation of 3.0 cm, previously 3.7 cm. There is increasing amount of subcutaneous emphysema along the right lateral chest wall. Atelectasis involves the right lung base. Bones are grossly intact. IMPRESSION: 1. Mildly decreased size of right-sided pneumothorax with increased amount of subcutaneous emphysema along the right lateral chest wall. 2. Evidence of prior right upper lobectomy. 3. Pulmonary hyperinflation. The above report was generated using voice recognition software. It may contain grammatical, syntax or spelling errors. Electronically signed by: Ramses Lopez M.D. 04/28/2017 7:37 AM Dictated Date/Time: 04/28/2017 7:32 AM
[2017-04-28 08:01] VITALS: BP 94/52; PULSE 85; TEMP 37; O2SAT 90
[2017-04-28] MEDS: ACETAMINOPHEN IV 1,000 MG in EMPTY BAG 0 ML IV SCH ×3 (08:20→23:50)
[2017-04-28] MEDS: BUDESONIDE/FORMOTEROL FUMARATE 160/4.5 60 PUFFS/INHALER INH SCH ×2 (08:20→20:28)
[2017-04-28] MEDS: CLOBETASOL PROPIONATE 0.05% OINT 15 GM TUBE EXT SCH ×2 (08:21→20:28)
[2017-04-28] MEDS: DOCUSATE SODIUM 100 MG CAP PO SCH ×2 (08:21→20:28)
[2017-04-28] MEDS: ENOXAPARIN 40 MG/0.4 ML SYR SQ SCH (08:22)
[2017-04-28 08:31] LABS: HEMATOCRIT 25.8 % (37-47); MEAN CELL VOLUME 92.8 fL (80-100); MEAN CORPUSCULAR HEMOGLOBIN 31.3 pg (25-34); MEAN CORPUSCULAR HGB CONC 33.7 g/dl (32-36); MEAN PLATELET VOLUME 9.2 fL (7.4-10.4); PLATELET COUNT 106 K/uL (130-400); RED BLOOD COUNT 2.78 M/uL (4.2-5.4); WHITE BLOOD COUNT 7.47 K/uL (4.8-10.8)
[2017-04-28 09:12] LABS: CREATININE 0.76 mg/dl (0.60-1.20); PHOSPHORUS 1.7 mg/dl (2.5-4.9); POTASSIUM 3.6 mmol/L (3.5-5.1)
[2017-04-28 09:13] LABS: CALCIUM 8.4 mg/dl (8.5-10.1)
--- NOTE | 2017-04-28 11:01 | SURGERY PROGRESS NOTE ---
DATE: 04/28/2017 Ms. Crowley was seen today on 04/28/2017. She has had a quiet night. She has been ambulating in the hallway. She is on room air with 95% sats this morning. She is eating well. She does have an air leak, although it is smaller. She is having some drainage from her chest tube but it is serous drainage. Her dressings are dry. She is moving air well on the right side. We are going to continue her chest tube for the time being. Her x-ray shows she does have a pneumothorax this morning, however, I think it is probably better than yesterday. Her x-rays have been taken off of when she is on water seal and I think with her on suction, her lung comes up as she does have some pain when we do that. Her pain is better controlled. Overall, I think she looks quite good. We had a long talk with the patient and her daughter about our intraoperative findings. She has done superbly from a surgical standpoint. We will see what her air leak looks like tomorrow. I have informed her that she will be in the hospital for a few days.
[2017-04-28 15:55] VITALS: BP 149/69; PULSE 87; TEMP 36.9; O2SAT 93
[2017-04-28 17:39] LABS: URINE APPEARANCE CLEAR (CLEAR); URINE BILIRUBIN NEG (NEG); URINE COLOR YELLOW; URINE EPITHELIAL CELL AUTO 0-5 /lpf (0-5); URINE NITRITE NEG (NEG); URINE PH 6.5 (4.5-7.5); URINE SPECIFIC GRAVITY 1.014 (1.000-1.030); UROBILINOGEN NEG (NEG)
[2017-04-28 17:49] LABS: MANUAL MICROSCOPIC REQUIRED? NO; REVIEW REQ? NO
[2017-04-28 22:49] VITALS: BP 138/76; PULSE 81; TEMP 37; O2SAT 93
[2017-04-29] MEDS: MoRPHine SULFATE 2 MG/ML CARP IV PRN (00:23)
[2017-04-29] MEDS: LEVOTHYROXINE 112 MCG TAB PO SCH (05:33)
[2017-04-29] MEDS: KETOROLAC TROMETHAMINE 15 MG/ML VIAL IV PRN ×2 (06:33→17:10)
--- NOTE | 2017-04-29 07:37 | Anesthesiology Progress Note ---
Anesthesia Post Op Note Date & Time Apr 29, 2017 at 07:37 Vital Signs Vital Signs Past 12 Hours Date Time Temp Pulse Resp B/P (MAP) Pulse Ox O2 Delivery O2 Flow Rate FiO2 04/28/17 23:40 Room Air 04/28/17 22:49 37.0 81 16 138/76 (96) 93 Room Air Notes Mental Status: alert / awake / arousable, participated in evaluation Pt Amnestic to Procedure: Yes Nausea / Vomiting: adequately controlled Pain: adequately controlled Airway Patency, RR, SpO2: stable & adequate BP & HR: stable & adequate Hydration State: stable & adequate Anesthetic Complications: no major complications apparent
[2017-04-29 08:00] VITALS: BP 118/62; PULSE 102; TEMP 37.1; O2SAT 92
[2017-04-29] MEDS: ACETAMINOPHEN IV 1,000 MG in EMPTY BAG 0 ML IV SCH ×2 (09:09→16:35)
[2017-04-29] MEDS: CLOBETASOL PROPIONATE 0.05% OINT 15 GM TUBE EXT SCH ×2 (09:10→20:41)
[2017-04-29] MEDS: BUDESONIDE/FORMOTEROL FUMARATE 160/4.5 60 PUFFS/INHALER INH SCH ×2 (09:10→20:41)
[2017-04-29] MEDS: ENOXAPARIN 40 MG/0.4 ML SYR SQ SCH (09:11)
[2017-04-29] MEDS: DOCUSATE SODIUM 100 MG CAP PO SCH ×2 (09:12→20:42)
--- NOTE | 2017-04-29 09:15 | SURGERY PROGRESS NOTE ---
DATE: 04/29/2017 Ms. Crowley was seen this morning on 04/29/2017. She looks great. She has been ambulating in the hallways. Saturations are very good on room air. She sounds better. Her incisions are clean. She still has an air leak, but it is better and her drainage is decreasing. We are going to recheck a chest x-ray tomorrow with lab work. We will also give her some MiraLax to help her move her bowels. The lab called and stated that a bronchial washing from 04/05/2017 was positive for an acid fast bacilli. I am going to have pulmonary comment on this finding. NANY
[2017-04-29] MEDS: POLYETHYLENE (MIRALAX) 17 GM PACK PO SCH (10:17)
[2017-04-29 10:53] VITALS: PULSE 74
[2017-04-29 15:40] VITALS: BP 166/83; PULSE 98; TEMP 36.8; O2SAT 93
--- NOTE | 2017-04-29 18:58 | Pulmonary Consultation ---
History General Date of Service: Apr 29, 2017. Stated Complaint: Lung Cancer HPI The patient is a 71 year old female who presents to [facility] with complaints of Lung Cancer. The patient's primary care provider is Dong Emmanuel M.D.. 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 She had a repeat check biopsy which was benign on 08/20/2014. She was noted to have three suspicious lesions on chest imaging seen in the right upper, right lower lobes and lingula seen on CT 06/27/2015. 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 She is status post radiofrequency ablation for the right lower lobe lesion which was completed on 04/09/2016 and SPRT with the right upper and lingula lesions completed on 12/12/2015 and 08/29/2016 respectively. Salvage chemotherapy was attempted at [facility] and unfortunately she had severe reaction to chemotherapy (cisplatin and 5-FU), developing , mucositis, esophagitis, pancytopenia and hypokalemia. She had a follow-up CT of the chest done in October 2016 which showed chronic emphysematous and apical fibrotic changes. However repeat CT was done on 2016 which showed increased growth on right upper lobe lesion. PET scan done on 03/18/2017 showed intense focus of increased FDG activity 2.9 cm fetus in the right hilar mass with SUV of 8.3. There was also stable mildly FDG avid 12 mm right upper lobe pulmonary nodule, a subcentimeter FDG avid nodule within the lingula with SUV max of 3 and stable FDG avid focus within the anus of SUV maximum of 3.2. She underwent bronchoscopy and FNA on 04/05/2017, cytology consistent with new lung primary of adenocarcinoma, as no features of squamous cell carcinoma present. On 04/26/2017 underwent VATS converted to a right thoracotomy for right upper lobe for significant bleeding , wedge resection of right lower lobe mass and mediastinal lymph node biopsy are pending. Pulmonary consulted today for culture positive acid-fast bacilli seen on bronchial washings of right upper lobe taken from 04/05/2017 bronchoscopy. Of note, fine-needle aspiration of right upper lobe is positive for Beuvaria species in fungal culture, and penicillium species in bacterial culture. Left upper lobe bronchial wash fungal culture grew Cladosporium species all from the same date. In the last 24 hours her vital signs have been MAXIMUM TEMPERATURE of 37.1, blood pressure 118/62 to 166/83, pulse 74-102, respiratory rate 18-20, pulse ox 92-93% on room air. For respiratory standpoint she is on albuterol 2 puffs inhaler every 4 hours when necessary, prednisone 7.5 mg every morning, Symbicort 160/4.52 puffs twice a day Patient is doing well postoperatively. She denies any fevers, chills, chest pain, shortness of breath, cough, hemoptysis, night sweats weight loss or chest pain unrelated to recent procedure. She denies any exposure to anyone with pulmonary TB. She denies any recent travel to endemic countries. She has been ambulating the halls without any dyspnea. Right chest tube in place and notable for air leak. Historian: patient Review of Systems Constitutional: reports: as stated in HPI Eyes: reports: as stated in HPI ENT: reports: as stated in HPI Cardiovascular: reports: as stated in HPI Respiratory: reports: as stated in HPI Gastrointestinal: reports: as stated in HPI Genitourinary - Female: reports: as stated in HPI Musculoskeletal: reports: as stated in HPI Integumentary: reports: as stated in HPI Neurologic: reports: as stated in HPI Psychiatric: reports: as stated in HPI Endocrine: as stated in HPI Hematologic / Lymphatic: as stated in HPI Allergic / Immunologic: as stated in HPI All Other Symptoms All Other Systems: Reviewed and Negative Past Medical History Past Medical History: Squamous cell cancer of anus with mets to lung Adenocarcinoma of lung COPD Allergic rhinitis GERD Dyslipidemia Hypothyroidism Neuropathy Multiple pulmonary nodules Transverse myelitis on chronic steroids Osteopenia Tinnitus Past Surgical History: Biopsy of muscle Bronchoscopy destruction of tumor History of cataract surgery History of Port-A-Cath placement History of navigational bronchoscopy History of tonsillectomy with adenoidectomy History of umbilical hernia repair History of saphenous vein ligation Family History Diabetes mellitus FH: gallbladder disease FH: heart disease Kidney stones Positive for malignant neoplasm of breast in mother and grandmother. 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 , lives with dog. Has two daughters . Hx Tobacco Use In Past Year?: Yes (quit 1 month ago) Smoking Status: Former Smoker Marital status: Occupational Status: employed Immunizations History of Influenza Vaccine: Yes History of Tetanus Vaccine?: utd History of Pneumococcal: No History of Hepatitis B Vaccine: No History of MDRO History of MDRO: No Allergies Coded Allergies: Amoxicillin (Verified Allergy, Severe, SLIGHT TONGUE SWELLING, 04/26/17) Current Medications Reported Home Medications Medications Dose Route/Sig Max Daily Dose Days Date Category Clobetasol Propionate 45 Appln/15 Gm Oint 1 Appln TOP BID 7 04/25/17 Reported Advil (Ibuprofen) 200 Mg Tab 400 Mg PO QPM 03/27/17 Reported Ventolin Hfa (Albuterol) 200 Puffs/57801 Mcg Aers 2 Puffs INH Q4 PRN 11/18/16 Reported Levothyroxine Sodium 112 Mcg Tab 1 Tab PO QAM 11/18/16 Reported Prednisone 5 Mg Tab 7.5 Mg PO QAM 12/27/14 Reported Symbicort 160-4.5 Mcg/Act (Budesonide/Formoterol Fumarate) 60 Puffs/Inhaler Aero 2 Puffs INH BID 12/21/14 Reported Physical Physical Exam Vital Signs: Date Time Temp Pulse Resp B/P (MAP) Pulse Ox O2 Delivery O2 Flow Rate FiO2 04/29/17 15:40 36.8 98 18 166/83 (110) 93 Room Air 04/29/17 10:53 74 04/29/17 08:00 92 Room Air 04/29/17 08:00 37.1 102 20 118/62 (80) 92 Room Air 04/29/17 07:30 Room Air 04/28/17 23:40 Room Air 04/28/17 22:49 37.0 81 16 138/76 (96) 93 Room Air General Appearance: WD/WN, NO APPARENT DISTRESS, thin Head: NORMOCEPHALIC, ATRAUMATIC Eyes: PERRLA, NO DISCHARGE, EOMI, SCLERAE NORMAL, CONJUNCTIVAE NORMAL ENT: other (oral thrush present) Neck: NORMAL RANGE OF MOTION, NO TENDERNESS, TRACHEA MIDLINE, NO STRIDOR, SUPPLE, NO LYMPHADENOPATHY, NO NUCHAL RIGIDITY Respiratory: BREATH SOUNDS NORMAL, CLEAR TO PERCUSSION Cardiovasular: REGULAR RATE/RHYTHM, NORMAL S1S2 Abdomen: NON TENDER, NORMAL BOWEL SOUNDS (right thoractomy incision healing well, right chest tube in place) Upper Extremities: other (wasting of hands) Lower Extremities: other (chronic venous changes) Pulses: dorsalis pedis (R) (2+), dorsalis pedis (L) (2+) Neuro: ALERT, ORIENTED x 3, NORMAL MOTOR EXAM, NORMAL SPEECH, NORMAL GAIT Psychiatric: NORMAL AFFECT, NO SUICIDAL IDEATION, CONTRACTS FOR SAFETY Diagnostics Labs Results Past 24 Hours Test 04/28/17 17:21 Range/Units Urine Color YELLOW Urine Appearance CLEAR CLEAR Urine pH 6.5 4.5-7.5 Urine Specific [place] 1.014 1.000-1.030 Urine Protein NEG NEG Urine Glucose (UA) NEG NEG Urine Ketones NEG NEG Urine Occult Blood TRACE NEG Urine Nitrite NEG NEG Urine Bilirubin NEG NEG Urine Urobilinogen NEG NEG Urine Leukocyte Esterase NEG NEG Urine WBC (Auto) 0 0-5 /hpf Urine RBC (Auto) 0-4 0-4 /hpf Urine Hyaline Casts (Auto) 0 0-5 /lpf Urine Epithelial Cells (Auto) 0-5 0-5 /lpf Urine Bacteria (Auto) NEG NEG Microbiology Results 04/28/17 Urine Culture - Preliminary, Resulted NO GROWTH - LESS THAN 1,000 COLONIES/... Diagnostic Radiology Chest x-ray 04/28/2017 IMPRESSION: 1. Mildly decreased size of right-sided pneumothorax with increased amount of subcutaneous emphysema along the right lateral chest wall. 2. Evidence of prior right upper lobectomy. 3. Pulmonary hyperinflation. CT chest 04/24/2017 IMPRESSION: 1. Overall, no significant change compared to the prior study. 2. The 3.6 x 1.8 cm irregular masslike right suprahilar opacity is again noted. 3. There is partial visualization of the suspected 8 mm lingular nodule which is obscured by the area of consolidation. 4. Stable 15 mm nodule within the right lower lobe CT chest 03/06/2017 IMPRESSION: 1. There is increasing irregular soft tissue in the right upper lobe around a metallic fiducial when compared to 11/07/2016. This appears to track centrally along the bronchovascular bundles. Although this could potentially represent radiation fibrosis if there has been interval radiation treatment the appearance is concerning for progression of disease. 2. There is linear atelectasis versus scarring/fibrosis identified in the lingula at the site of the previously characterized nodule. The lingular lesion seen previously is not visualized. 3. A right lower lobe lesion has not significantly changed from previous. 4. Advanced emphysema. There is no airspace consolidation typical for pneumonia or pleural effusion. 5. There is no mediastinal or hilar adenopathy. 6. Additional findings as above. CT chest 11/07/2016 FINDINGS: Unchanging apical fibrotic change. Minimal scattered micronodularity is nonprogressive. The 12 mm nodule of the lingula has a current maximum dimension 9 mm. Nodular density peripheral aspect right lower lobe is essentially unchanged at 11 mm maximum dimension. It is not appear to be new or progressive a parenchymal nodularity. Mediastinal and hilar regions show no significant scarlet change. IMPRESSION: 1.Unchanged pulmonary metastatic change compared to the prior study. 2. No evidence for new interval or progressive change. 3. Unchanging emphysematous and apical fibrotic change EKG EKG 03/27/2017 Normal sinus rhythm at 65 bpm Normal ECG When compared with ECG of 11-FEB-2016 12:37, No significant change was found Impression Assessment and Plan Squamous cell carcinoma of anus with metastasis to lung RUL adenocarcinoma of lung s/p lobectomy RLL wedge resection AFB culture positive from BAL Emphysema Tobacco use disorder Patient has had a complicated pulmonary history. She is s/p open thoracotomy and RUL lobe resection and RLL wedge resection. On April 05, 2017 patient had a FNA and bronchoscopy done, results from RUL bronchial washings now positive for AFB. Patient has no risk factors for Mycobacterium tuberculosis. 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 She is now s/p resection of this this RUL that was positive for adenocarcinoma , which may have been a nidus for the mycobacterium infection and can occur simultaneously. Due to her immunocompromised state, guidelines recommend treatment with triple therapy of macrolide, rifampin and ethambutol for at least one year after being culture negative for nodular/bronchiectatic disease. Her overall clinical status is good. I discussed some of the side effects of starting triple therapy with her including liver dysfunction, peripheral neuropathy and visual changes. She is willing to attempt a trial with the therapy. She is concerned about swallowing pills, multiple pills. I will speak to pharmacy about what other options are available. In the meantime, continue bronchodilators, incentive spirometry. Pain control is adequate. Start nystatin swish and swallow for oral thrush. All other management per primary team. I appreciate the consult.
[2017-04-29] MEDS ORDERED: NURSING VERBAL MED ORDER ONE (20:15)
[2017-04-29] MEDS: NYSTATIN SUSP 500,000 U/5 ML UDC PO SCH (21:20)
[2017-04-29 23:25] VITALS: BP 146/84; PULSE 84; TEMP 36.7; O2SAT 95
[2017-04-30] MEDS: ACETAMINOPHEN IV 1,000 MG in EMPTY BAG 0 ML IV SCH ×4 (00:18→23:30)
[2017-04-30] MEDS: KETOROLAC TROMETHAMINE 15 MG/ML VIAL IV PRN ×2 (01:11→08:57)
[2017-04-30] MEDS: LEVOTHYROXINE 112 MCG TAB PO SCH (05:16)
[2017-04-30 06:31] LABS: HEMATOCRIT 28.7 % (37-47); MEAN CORPUSCULAR HEMOGLOBIN 31.8 pg (25-34); MEAN CORPUSCULAR HGB CONC 33.1 g/dl (32-36); PLATELET COUNT 179 K/uL (130-400); RED BLOOD COUNT 2.99 M/uL (4.2-5.4); WHITE BLOOD COUNT 7.29 K/uL (4.8-10.8)
[2017-04-30 06:53] LABS: BUN/CREATININE RATIO 26.4 (10-20); CALCIUM 9.1 mg/dl (8.5-10.1); CREATININE 0.84 mg/dl (0.60-1.20); POTASSIUM 4.2 mmol/L (3.5-5.1)
[2017-04-30 06:59] VITALS: BP 128/57; PULSE 111; TEMP 36.9; O2SAT 94
--- NOTE | 2017-04-30 07:29 | DIAGNOSTIC IMAGING REPORT ---
CHEST ONE VIEW PORTABLE CLINICAL HISTORY: 71 years-old Female presenting with lobectomy. TECHNIQUE: Portable upright AP view of the chest was obtained. COMPARISON: 04/28/2017. FINDINGS: Large bore right pleural drain terminates near the right upper lung. Right subclavian Mediport terminates in the SVC. Postsurgical changes of right upper lobectomy with suture margin noted. There has been interval increase in size of the moderate right pneumothorax which now is displaced 4.5 cm from the right apical parietal pleura, previously 3 cm. Resultant increased opacification of the right lung with volume loss. Minimal bandlike opacities in the left lung. Left pleural space clear. Increased extensive soft tissue emphysema along the right base of the neck and right lateral chest wall. IMPRESSION: 1. Interval increase in size of the moderate right pneumothorax with increasing soft tissue emphysema along the right lateral chest wall. This raises concern for air leak, bronchial leak, or bronchopleural fistula. 2. Extensive right lung opacities with volume loss. Electronically signed by: Chaitanya Hall M.D. 04/30/2017 7:28 AM Dictated Date/Time: 04/30/2017 7:25 AM
--- NOTE | 2017-04-30 08:07 | DIAGNOSTIC IMAGING REPORT ---
CHEST ONE VIEW PORTABLE HISTORY: Follow-up right pneumothorax COMPARISON: Chest 04/30/2017. FINDINGS: Significant decrease in size in the small right pneumothorax which now demonstrates a maximal pleural gap of 1.5 cm. Right-sided chest tube terminates in the right lung apex. Right subclavian Port-A-Cath terminates in the SVC. Extensive right chest wall subcutaneous emphysema persists. Suture material within the right lung consistent with postoperative change. Small linear density within the left midlung zone favors atelectasis. This remains unchanged. Otherwise, the left lung is clear. No pleural effusions. The heart is normal in size. Mild rightward shift of the superior mediastinum. Right lung airspace opacities have also slightly improved. IMPRESSION: Significant decrease in size in the small right apical pneumothorax. Electronically signed by: Last Mckeon M.D. 04/30/2017 8:05 AM Dictated Date/Time: 04/30/2017 8:03 AM
[2017-04-30] MEDS: BUDESONIDE/FORMOTEROL FUMARATE 160/4.5 60 PUFFS/INHALER INH SCH ×2 (08:27→21:34)
[2017-04-30] MEDS: DOCUSATE SODIUM 100 MG CAP PO SCH ×2 (08:35→21:34)
[2017-04-30] MEDS: POLYETHYLENE (MIRALAX) 17 GM PACK PO SCH (08:35)
[2017-04-30] MEDS: NYSTATIN SUSP 500,000 U/5 ML UDC PO SCH ×4 (08:36→21:34)
[2017-04-30] MEDS: CLOBETASOL PROPIONATE 0.05% OINT 15 GM TUBE EXT SCH ×2 (08:37→21:34)
--- NOTE | 2017-04-30 10:38 | Medical Consult ---
Consultation Date of Consultation: Apr 30, 2017. Attending Physician: Manfred Ascencio MD Reason for Consultation: AFB in BAL culture History of Present Illness 71-year-old female with complicated past medical history including diagnosis of squamous cell carcinoma of the anus diagnosed in 2017. She was subsequently found to have metastatic disease and underwent trial of chemotherapy which she did not tolerate. She now presents with recurrent disease in the chest, drop documented on bronchoscopy, and was admitted for VATS procedure, but required thoracotomy after developing bleeding with lobectomy and wedge resection. Yesterday, cultures from BAL fluid from bronchoscopy earlier this month now reported growing small amount of AFB. Patient has had no significant fever, night sweats, or other obvious symptoms referable to mycobacterial infection. No contacts with tuberculosis. Previous PPDs have been negative. Of note, cultures from previous bronchoscopy have also grown Penicillium, Cladosporium, and Beauvaria species. Patient is on immunosuppressive therapy currently. Past Medical/Surgical History Medical Problems: (1) Cellulitis of right leg Status: Acute (2) Chemotherapy adverse reaction Status: Acute (3) Hyponatremia Status: Acute (4) Nausea & vomiting Status: Acute (5) Pharyngeal ulcer Status: Acute (6) Symptoms involving urinary system Status: Acute (7) Throat pain Status: Acute Medical Problems: (1) Anal cancer (2) Asthma (3) Lung mass (4) Mucositis (ulcerative) due to antineoplastic therapy (5) Volume depletion (6) thoracotomy Family History Diabetes mellitus FH: gallbladder disease FH: heart disease Kidney stones Social History Smoking Status: Former Smoker Drug Use: none Marital Status: Housing Status: lives alone Occupation Status: employed Allergies Coded Allergies: Amoxicillin (Verified Allergy, Severe, SLIGHT TONGUE SWELLING, 04/26/17) Current Inpatient Medications Current Inpatient Medications Medications (Trade) Dose Ordered Sig/Moiz Route Start Time Stop Time Status Last Admin Dose Admin Albuterol (Ventolin Hfa Inhaler) 2 puffs Q4H PRN INH 04/26/17 13:00 05/26/17 12:59 Budesonide/ Formoterol Fumarate (Symbicort 160/ 4.5 Inh) 2 puffs BID INH 04/26/17 21:00 05/26/17 20:59 04/30/17 08:27 2 PUFFS Levothyroxine Sodium (Synthroid Tab) 112 mcg DAILYBB PO 04/27/17 06:00 05/27/17 05:59 04/30/17 05:16 112 MCG Clobetasol Propionate (Clobetasol Propionate Oint) 1 appln BID EXT 04/26/17 21:00 05/03/17 09:01 04/30/17 08:37 1 APPLN Enoxaparin Sodium (Lovenox Inj) 40 mg DAILY SQ 04/27/17 09:00 05/27/17 08:59 Future Hold 04/29/17 09:11 40 MG Ondansetron HCl (Zofran Inj) 4 mg Q4H PRN IV 04/26/17 13:00 05/26/17 12:59 04/26/17 15:41 4 MG Docusate Sodium (coLACE CAP) 100 mg BID PO 04/26/17 21:00 05/26/17 20:59 04/30/17 08:35 100 MG Oxycodone HCl (Roxicodone Immediate Rel Tab) 5 mg Q6H PRN PO 04/26/17 13:00 05/10/17 12:59 04/26/17 19:48 5 MG Acetaminophen 1000 mg/Empty Bag 100 ml @ 400 mls/hr Q8H IV 04/26/17 16:00 05/26/17 15:59 04/30/17 08:26 400 MLS/HR Albuterol/ Ipratropium (Duoneb) 3 ml Q4H PRN INH 04/26/17 13:15 05/26/17 13:14 Morphine Sulfate (MoRPHine SULFATE INJ) 1 mg Q1H PRN IV 04/26/17 13:15 05/10/17 13:14 04/29/17 00:23 1 MG Prednisone (PredniSONE TAB) 7.5 mg QAM PO 04/27/17 09:00 05/27/17 08:59 04/30/17 08:37 7.5 MG Ketorolac Tromethamine (Toradol Inj) 15 mg Q6H PRN IV 04/27/17 08:30 05/02/17 08:29 04/30/17 08:57 15 MG Heparin Sodium (Porcine) (Heparin 100 Unit/ml 5ml Flush) 5 ml PRN PRN IV 04/27/17 20:45 05/27/17 20:44 04/30/17 09:12 5 ML Polyethylene (Miralax Powder Packet) 17 gm DAILY PO 04/29/17 09:00 05/29/17 08:59 04/29/17 10:17 17 GM Nystatin (Mycostatin Susp) 5 ml QID PO 04/29/17 21:00 05/29/17 20:59 04/30/17 08:36 5 ML Review of Systems All systems were reviewed and are negative except as per HPI Physical Exam Date Time Temp Pulse Resp B/P (MAP) Pulse Ox O2 Delivery O2 Flow Rate FiO2 04/30/17 06:59 36.9 111 16 128/57 (80) 94 Room Air 04/30/17 00:15 Room Air 04/29/17 23:25 36.7 84 16 146/84 (104) 95 Room Air 04/29/17 15:40 36.8 98 18 166/83 (110) 93 Room Air 04/29/17 10:53 74 General Appearance: WD/WN, no apparent distress, + thin Head: normocephalic, atraumatic Eyes: normal inspection, EOMI, sclerae normal ENT: normal ENT inspection, pharynx normal Neck: supple, no adenopathy, thyroid normal, trachea midline Respiratory/Chest: lungs clear, normal breath sounds, no respiratory distress, + pertinent finding (Right chest tube in place) Cardiovascular: regular rate, rhythm, no gallop, no murmur Abdomen/GI: normal bowel sounds, non tender, soft, no organomegaly Back: normal inspection, no CVA tenderness Extremities/Musculoskelatal: no calf tenderness, non-tender Neurologic/Psych: alert, oriented x 3 Skin: normal color, warm/dry, no rash Lymphatic: no adenopathy Laboratory Results RUN DATE: 04/26/17 [facility] LAB PAGE 1 RUN TIME: 1701 Specimen Inquiry PATIENT: BASSEM DANIELS LOC: [facility] U # : [id number] AGE/SX: 71/F ROOM: E106 REG : 04/26/[address]: Manfred Ascencio MD : 1945 BED: 1 DIS : STATUS: ADM IN TLOC: SPEC #: [id number] GONZALO: 04/26/17 STATUS: COMP REQ #: [id number] RECD: 04/26/[address]: Michele Bravo PA SOURCE: NASAL ENTR: 04/26/17-[address]: Milton Escalera PA-C SPDESC: Dong Emmanuel M.D. Whitlark, Joseph D., MD ORDERED: MRSA DNA COMMENTS: Comments to [place] Q 7 Days while in ICU Procedure Result Verified Site MRSA DNA (NASAL SWAB) Final 04/26/17-1701 Specimen Negative for MRSA by DNA Probe Last 24 Hours Test 04/30/17 06:10 White Blood Count 7.29 K/uL Red Blood Count 2.99 M/uL Hemoglobin 9.5 g/dL Hematocrit 28.7 % Mean Corpuscular Volume 96.0 fL Mean Corpuscular Hemoglobin 31.8 pg Mean Corpuscular Hemoglobin Concent 33.1 g/dl RDW Standard Deviation 52.7 fL RDW Coefficient of Variation 15.0 % Platelet Count 179 K/uL Mean Platelet Volume 9.0 fL Sodium Level 141 mmol/L Potassium Level 4.2 mmol/L Chloride Level 108 mmol/L Carbon Dioxide Level 29 mmol/L Anion Gap 4.0 mmol/L Blood Urea Nitrogen 22 mg/dl Creatinine 0.84 mg/dl Est Creatinine Clear Calc Drug Dose 55.7 ml/min Estimated GFR () 81.6 Estimated GFR (Non- 70.4 BUN/Creatinine Ratio 26.4 Random Glucose 90 mg/dl Calcium Level 9.1 mg/dl Patient Name: BASSEM DANIELS Unit Number: [id number] Dictated: 04/30/17802 Transcribed: 04/30/17802 PAE-Duction Printed Date/Time: [~ rep prt dt]/[~ rep prt tm] [~ rep ct labl] - [~ rep ct ivnm] [facility] [place]iology [place] [address] Dictated: 04/30/17802 Transcribed: 04/30/17802 PAJ Printed Date/Time: [~ rep prt dt]/[~ rep prt tm] [~ rep ct labl] - [~ rep ct ivnm] CHEST ONE VIEW PORTABLE HISTORY: Follow-up right pneumothorax COMPARISON: Chest 04/30/2017. FINDINGS: Significant decrease in size in the small right pneumothorax which now demonstrates a maximal pleural gap of 1.5 cm. Right-sided chest tube terminates in the right lung apex. Right subclavian Port-A-Cath terminates in the SVC. Extensive right chest wall subcutaneous emphysema persists. Suture material within the right lung consistent with postoperative change. Small linear density within the left midlung zone favors atelectasis. This remains unchanged. Otherwise, the left lung is clear. No pleural effusions. The heart is normal in size. Mild rightward shift of the superior mediastinum. Right lung airspace opacities have also slightly improved. IMPRESSION: Significant decrease in size in the small right apical pneumothorax. Electronically signed by: Last Mckeon M.D. 04/30/2017 8:05 AM Dictated Date/Time: 04/30/2017 8:03 AM The status of this report is Signed. Draft = Not yet reviewed or approved by Radiologist. Signed = Reviewed and approved by Radiologist. <AttendingPhy>Manfred Ascencio MD</AttendingPhy> <FamilyPhy>Dong Emmanuel M.D. </FamilyPhy> <PrimaryPhy>Dong Emmanuel M.D.</PrimaryPhy> <UnitNumber>[id number]</ UnitNumber> <VisitNumber>[id number]</VisitNumber> <PatientName>BASSEM DANIELS</PatientName> <DateOfBirth>1945</DateOfBirth> <Location>[facility]</Location > <ServiceDate>04/26/17</ServiceDate> <MNE>ESINDI</MNE> <OrderingPhy>Manfred Ascencio MD</OrderingPhy> <OrderingPhyMNE>f rep ord dr fontana</OrderingPhyMNE> < DictatingPhyMNE>f rep dict dr fontana</DictatingPhyMNE> <CCListMNE>f rep ct mne</ CCListMNE> <AdmittingPhyMNE>f pt admit dr fontana</AdmittingPhyMNE> <AttendingPhyMNE >f pt attend dr fontana</AttendingPhyMNE> <ConsultingPhyMNE>f pt consult dr fontana</ConsultingPhyMNE> <FamilyPhyMNE>f pt fam dr fontana</FamilyPhyMNE> <OtherPhyMNE>f pt other dr fontana</OtherPhyMNE> < PrimaryPhyMNE>f pt prim care dr fontana</PrimaryPhyMNE> <ReferringPhyMNE>f pt referring dr fontana</ReferringPhyMNE> Assessment & Plan 71-year-old female with metastatic squamous cell carcinoma, now status post thoracotomy with lobectomy and wedge resection, with prior bronchoscopy specimen growing AFB. Likely this represents non tuberculosis mycobacteria given lack of exposure history, negative PPDs in the past. Given lack of her symptomatology that would be consistent with chronic BRIANA infection, would favor holding specific therapy pending final identification of isolate as well as review of surgical pathology. Agree with Pulmonary that 3 drug regimen would be required, but this is often difficulty with significant side effects which might hinder her recovery from her current surgery. Will discuss with all involved.
[2017-04-30 15:24] VITALS: BP 156/67; PULSE 84; TEMP 36.6; O2SAT 96
--- NOTE | 2017-04-30 15:38 | SURGERY PROGRESS NOTE ---
DATE: 04/30/2017 DATE: 04/30/2017 Ms. Crowley was seen today on 04/30/2017. She looks great. Her chest x-ray showed enlarging pneumothorax; however, we put her on suction, it was almost totally resolved. She is draining very little. She put out 308 mL or so last 24 hours, but only 90 mL over the last shift. She does have an air leak. Her labs all look better. Hemoglobin is up to 9.5. Her platelet count is stable. BUN and creatinine 22 and 0.84 respectively. She did have a nose bleed last night but this has resolved. She is ambulating. Dr. Jacobs and Dr. Martinez's input into her positive AFB culture was greatly appreciated. We will hold off treating her right now. I think it is important to note this patient has a severe peripheral neuropathy of unknown etiology which was present before she ever got chemotherapy, but it was exacerbated by the chemotherapy. We are waiting for her final path. I had a long talk with the patient and her daughter. She looks better. MTDD
[2017-04-30] MEDS: MoRPHine SULFATE 2 MG/ML CARP IV PRN ×3 (15:48→20:32)
[2017-04-30 23:06] VITALS: BP 136/75; PULSE 76; TEMP 37.1; O2SAT 93
[2017-05-01] MEDS: KETOROLAC TROMETHAMINE 15 MG/ML VIAL IV PRN (01:21)
[2017-05-01 03:24] VITALS: BP 130/61; PULSE 79; TEMP 36.6; O2SAT 93
[2017-05-01] MEDS: LEVOTHYROXINE 112 MCG TAB PO SCH (05:44)
[2017-05-01 07:33] VITALS: BP 115/56; PULSE 97; TEMP 36.9; O2SAT 92
[2017-05-01] MEDS: ACETAMINOPHEN IV 1,000 MG in EMPTY BAG 0 ML IV SCH (08:16)
[2017-05-01] MEDS: CLOBETASOL PROPIONATE 0.05% OINT 15 GM TUBE EXT SCH ×2 (09:09→21:06)
[2017-05-01] MEDS: BUDESONIDE/FORMOTEROL FUMARATE 160/4.5 60 PUFFS/INHALER INH SCH ×2 (09:10→21:06)
[2017-05-01] MEDS: DOCUSATE SODIUM 100 MG CAP PO SCH ×2 (09:11→21:17)
[2017-05-01] MEDS: POLYETHYLENE (MIRALAX) 17 GM PACK PO SCH (09:11)
[2017-05-01] MEDS: NYSTATIN SUSP 500,000 U/5 ML UDC PO SCH ×4 (09:13→21:05)
[2017-05-01 15:14] VITALS: BP 131/67; PULSE 88; TEMP 37.1; O2SAT 96
--- NOTE | 2017-05-01 16:22 | SURGERY PROGRESS NOTE ---
DATE: 05/01/2017 DATE: 05/01/2017 Ms. Crowley is now 5 days out from a robotic right upper lobectomy and mediastinal lymphadenectomy, which we converted to a small thoracotomy to control the bleeding from her pulmonary artery. The final pathology came back. This does appear to be a metastatic squamous cell despite our doubts about this preoperatively. The 1 out of 11 lymph nodes was positive for carcinoma. Unfortunately, there was metastatic. A very interesting finding the metastatic deposit which was noted in her right lower lobe was wedged out and this showed no evidence of viable cells. This appeared to be old scar. Unfortunately, the carcinoma was present at the bronchial margin line. This was microscopic. We have discussed this in great detail. The patient did have bronchial washings 3 weeks ago that showed acid fast bacilli, however I discussed this with Dr. Sai Martinez who does not think this is tuberculosis. She remains on isolation. She is ambulating in the hallway. She moved her bowels. She still has an air leak. We are going to continue her in the hospital on intermittent suction until this air leak resolves.
[2017-05-01] MEDS: IBUPROFEN 200 MG TAB PO PRN (18:11)
--- NOTE | 2017-05-01 18:32 | DIAGNOSTIC IMAGING REPORT ---
CHEST ONE VIEW PORTABLE CLINICAL HISTORY: lobectomy COMPARISON STUDY: 04/30/2017 FINDINGS: There is a right-sided A-Port catheter present. There is a right-sided chest tube present. The heart is normal in size. There is mild aortic tortuosity. There is extensive subcutaneous emphysema on the right. This makes evaluation the lung parenchyma difficult. There is no lobar consolidation. Left lung appears clear. There is a suspected tiny right apical pneumothorax.[ IMPRESSION: 1. Postsurgical changes on the right 2. Tiny residual right apical pneumothorax 3. Extensive right-sided subcutaneous emphysema Electronically signed by: Zeke Mirza M.D. 05/01/2017 6:31 PM Dictated Date/Time: 05/01/2017 6:29 PM
[2017-05-01] MEDS: TRAMADOL HCL 50 MG TAB PO PRN (19:38)
[2017-05-01 20:30] VITALS: O2SAT 96
[2017-05-01 23:30] VITALS: BP 116/62; PULSE 89; TEMP 37; O2SAT 93
[2017-05-02] MEDS: IBUPROFEN 200 MG TAB PO PRN ×3 (01:45→21:16)
[2017-05-02] MEDS: LEVOTHYROXINE 112 MCG TAB PO SCH (06:12)
[2017-05-02 06:53] VITALS: BP 93/57; PULSE 91; TEMP 36.7; O2SAT 96
--- NOTE | 2017-05-02 09:05 | SURGERY PROGRESS NOTE ---
DATE: 05/02/2017 DATE: 05/02/2017 SUBJECTIVE: Ms. Crowley was seen today on 05/02/2017. She is now postoperative day 6. Unfortunately, her air leak does not appear to be getting smaller. Her x-ray yesterday showed almost full expansion of her lung with the pleural effusion and her drainage is serous. She does have some subcutaneous emphysema. Otherwise, she is ambulating in the hallway without difficulty. She is tolerating her diet, moving her bowels. She has decreased breath sounds in both lung solis inferiorly, but has no difficulty moving air and she is not tachypneic. ASSESSMENT AND PLAN: Postop day #6 status post robotic assisted thoracoscopic right upper lobectomy and mediastinal lymphadenectomy with conversion to limited anterior thoracotomy for control of bleeding. The air leak is persistent and concerning. I have had a long discussion with Ms. Crowley today and yesterday. If this does not resolve in the next day or 2 we may have to go back to the operating room.
[2017-05-02] MEDS: CLOBETASOL PROPIONATE 0.05% OINT 15 GM TUBE EXT SCH ×2 (09:27→21:14)
[2017-05-02] MEDS: DOCUSATE SODIUM 100 MG CAP PO SCH ×2 (09:28→21:13)
[2017-05-02] MEDS: BUDESONIDE/FORMOTEROL FUMARATE 160/4.5 60 PUFFS/INHALER INH SCH ×2 (09:28→21:13)
[2017-05-02] MEDS: POLYETHYLENE (MIRALAX) 17 GM PACK PO SCH (09:29)
[2017-05-02] MEDS: NYSTATIN SUSP 500,000 U/5 ML UDC PO SCH ×4 (09:29→21:13)
[2017-05-02 13:03] VITALS: O2SAT 96
[2017-05-02 15:22] VITALS: BP 121/64; PULSE 104; TEMP 37.1; O2SAT 93
[2017-05-02] MEDS: TRAMADOL HCL 50 MG TAB PO PRN (21:13)
[2017-05-02 21:24] VITALS: BP 128/73; PULSE 96; TEMP 37; O2SAT 95
[2017-05-02 23:05] VITALS: BP 118/69; PULSE 96; TEMP 36.9; O2SAT 95
[2017-05-03] MEDS: LEVOTHYROXINE 112 MCG TAB PO SCH (06:14)
[2017-05-03] MEDS: IBUPROFEN 200 MG TAB PO PRN ×2 (06:27→20:59)
[2017-05-03 07:30] VITALS: BP 95/57; PULSE 103; TEMP 36.6; O2SAT 91
[2017-05-03] MEDS: POLYETHYLENE (MIRALAX) 17 GM PACK PO SCH (08:31)
[2017-05-03] MEDS: DOCUSATE SODIUM 100 MG CAP PO SCH ×2 (08:31→20:58)
[2017-05-03] MEDS: BUDESONIDE/FORMOTEROL FUMARATE 160/4.5 60 PUFFS/INHALER INH SCH ×2 (08:32→20:59)
[2017-05-03] MEDS: NYSTATIN SUSP 500,000 U/5 ML UDC PO SCH ×4 (08:32→20:58)
[2017-05-03] MEDS: CLOBETASOL PROPIONATE 0.05% OINT 15 GM TUBE EXT SCH (08:33)
[2017-05-03] MEDS: TRAMADOL HCL 50 MG TAB PO PRN ×2 (09:31→20:58)
--- NOTE | 2017-05-03 12:40 | SURGERY PROGRESS NOTE ---
DATE: 05/03/2017 Ms. Crowley looks great. She has no complaints. She is sleeping well. She is moving her bowels. Her pain is very well controlled. On room air she has good saturations. The problem has been her chest tube. She still has an air leak. She put out 330 mL of a serous fluid yesterday. She has had no fevers. Her x-ray 2 days ago looked very good. At this point, I would like to try to continue the chest tube. If she still has an air leak over the weekend we will plan on offering her a return to the operating room to control this. NANY
[2017-05-03 14:49] VITALS: BP 145/79; PULSE 92; TEMP 36.7; O2SAT 97
[2017-05-03 23:20] VITALS: BP 135/69; PULSE 76; TEMP 36.8; O2SAT 93
[2017-05-04] MEDS: LEVOTHYROXINE 112 MCG TAB PO SCH (06:12)
[2017-05-04 08:02] VITALS: BP 124/57; PULSE 92; TEMP 37; O2SAT 93
--- NOTE | 2017-05-04 08:44 | SURGERY PROGRESS NOTE ---
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 She continues to improve. If it were not for her chest tube, she would be doing very well. She is ambulating in the hallway. She is on room air. She is eating well and moving her bowels and able to sleep. Her pain is very well controlled. She still has an air leak but it is definitely smaller. I am hopeful this will resolve within the next couple of days. We will continue to push her to ambulate. Her lungs sound very good on auscultation today. We are going to check a chest x-ray and some lab work in the morning.
[2017-05-04] MEDS: BUDESONIDE/FORMOTEROL FUMARATE 160/4.5 60 PUFFS/INHALER INH SCH ×2 (08:58→21:15)
[2017-05-04] MEDS: DOCUSATE SODIUM 100 MG CAP PO SCH ×2 (08:58→21:15)
[2017-05-04] MEDS: POLYETHYLENE (MIRALAX) 17 GM PACK PO SCH (09:01)
[2017-05-04] MEDS: IBUPROFEN 200 MG TAB PO PRN ×2 (09:03→21:17)
[2017-05-04] MEDS: NYSTATIN SUSP 500,000 U/5 ML UDC PO SCH ×4 (09:03→21:15)
[2017-05-04 15:12] VITALS: BP 129/65; PULSE 90; TEMP 36.9; O2SAT 96
[2017-05-04] MEDS: TRAMADOL HCL 50 MG TAB PO PRN (21:17)
[2017-05-04 23:21] VITALS: BP 125/75; PULSE 85; TEMP 36.8; O2SAT 95
[2017-05-05] MEDS: LEVOTHYROXINE 112 MCG TAB PO SCH (05:43)
[2017-05-05 06:21] LABS: BASO % 0.4 %; BASO ABS # 0.03 K/uL (0-0.2); EOS % 5.6 %; HEMATOCRIT 25.1 % (37-47); IG% 0.7 %; LYMPH % 4.5 %; LYMPH ABS # 0.32 K/uL (1.2-3.4); MEAN CELL VOLUME 97.3 fL (80-100); MEAN CORPUSCULAR HEMOGLOBIN 31.8 pg (25-34); MEAN CORPUSCULAR HGB CONC 32.7 g/dl (32-36); MEAN PLATELET VOLUME 8.5 fL (7.4-10.4); MONO % 15.3 %; NEUT % 73.5 %; PLATELET COUNT 284 K/uL (130-400); RED BLOOD COUNT 2.58 M/uL (4.2-5.4); WHITE BLOOD COUNT 7.17 K/uL (4.8-10.8)
[2017-05-05 06:50] LABS: COMPLETE YES; POLYCHROMASIA 1+
[2017-05-05 07:07] LABS: BUN/CREATININE RATIO 31.3 (10-20); CALCIUM 8.6 mg/dl (8.5-10.1); CREATININE 0.71 mg/dl (0.60-1.20); PHOSPHORUS 3.2 mg/dl (2.5-4.9); POTASSIUM 4.1 mmol/L (3.5-5.1)
[2017-05-05 07:10] VITALS: BP 113/73; PULSE 90; TEMP 36.7; O2SAT 92
--- NOTE | 2017-05-05 07:12 | DIAGNOSTIC IMAGING REPORT ---
CHEST ONE VIEW PORTABLE CLINICAL HISTORY: Lobectomy. Lung cancer. COMPARISON STUDY: Chest radiograph May 01, 2017. FINDINGS: A right subclavian [id number]-[id number] is in place. A right chest tube is in place. Postoperative findings within the right hemithorax are noted. Extensive subcutaneous gas within the right chest wall and neck has increased since exam of May 01, 2017. Displaced pleural line is noted within the right upper hemithorax. The findings may reflect a loculated pneumothorax. This has increased in size since exam of May 01, 2017. The size of the pneumothorax is difficult to estimate by radiography. IMPRESSION: Increase in size of a small to moderate right pneumothorax which may be loculated. Size of pneumothorax is difficult to estimate on this exam. Increase in subcutaneous gas within the right chest wall and neck. Electronically signed by: Nickolas Henderson M.D. 05/05/2017 7:10 AM Dictated Date/Time: 05/05/2017 7:07 AM
[2017-05-05] MEDS: BUDESONIDE/FORMOTEROL FUMARATE 160/4.5 60 PUFFS/INHALER INH SCH ×2 (09:38→21:13)
[2017-05-05] MEDS: NYSTATIN SUSP 500,000 U/5 ML UDC PO SCH ×4 (09:40→21:12)
[2017-05-05] MEDS: DOCUSATE SODIUM 100 MG CAP PO SCH ×2 (09:40→21:12)
[2017-05-05] MEDS: POLYETHYLENE (MIRALAX) 17 GM PACK PO SCH (09:40)
[2017-05-05] MEDS: IBUPROFEN 200 MG TAB PO PRN ×2 (10:01→21:15)
--- NOTE | 2017-05-05 11:14 | SURGERY PROGRESS NOTE ---
DATE: 05/05/2017 SUBJECTIVE: Ms. Crwoley was seen again this morning on 05/05/2017. She had an uneventful night, although she said she did not sleep well. She is afebrile. Vital signs are quite stable. Pulse oximetry is between 92% and 96% on room air and she is ambulating in the hallways. She has no wheezing. Her incisions are all clean. In reviewing her labs from today, her white count is 7170, her hemoglobin is 8.2. Platelet count is stable at 284,000. Her sodium is 139. Her potassium 4.1, chloride 104, bicarbonate 26. Her BUN and creatinine are 22 and 0.71. The patient looks great. Unfortunately, she continues to have an air leak, although her drainage is decreasing from her chest tube and is serous in nature and her x-ray is better, even though she has a pneumothorax. I think it is better than it was a few days ago when she was off suction. Air leak is smaller. I had a long discussion with the patient today about deciding whether or not to proceed with reexploration or to continue conservative course. She looks very good and I think what I would like to do is wait this out. I may well put a Heimlich valve on her and let her go home in it as her drainage is decreasing. We will see how she looks in the next few days.
[2017-05-05 15:27] VITALS: BP 101/51; PULSE 95; TEMP 37; O2SAT 98
[2017-05-05] MEDS: TRAMADOL HCL 50 MG TAB PO PRN ×2 (17:31→21:12)
[2017-05-05 23:24] VITALS: BP 122/71; PULSE 86; TEMP 37.2; O2SAT 92
[2017-05-06] MEDS: LEVOTHYROXINE 112 MCG TAB PO SCH (06:08)
--- NOTE | 2017-05-06 07:11 | SURGERY PROGRESS NOTE ---
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 She slept well. She has no significant pain. Her air leak persists, although I believe it is smaller. She does not have any pain when she coughs vigorously. She did drain about 300 mL total of serous fluid. We are going to continue the chest tube. 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 Quite frankly with her emphysema, lung function and her radiation and the fact that she is on corticosteroids, all contribute to the persistence of this leak. At this point, we will continue to observe her as I think that she will seal this, although it is taken quite a bit of time. NANY
[2017-05-06 07:31] VITALS: BP_SYST 139; BP_SYST 97; BP_DIAS 61; PULSE 109; PULSE 70; TEMP 36.5; TEMP 37; O2SAT 90; O2SAT 95
[2017-05-06] MEDS: DOCUSATE SODIUM 100 MG CAP PO SCH ×3 (09:00→20:41)
[2017-05-06] MEDS: POLYETHYLENE (MIRALAX) 17 GM PACK PO SCH (09:08)
[2017-05-06] MEDS: NYSTATIN SUSP 500,000 U/5 ML UDC PO SCH ×4 (09:08→20:41)
[2017-05-06] MEDS: BUDESONIDE/FORMOTEROL FUMARATE 160/4.5 60 PUFFS/INHALER INH SCH ×2 (09:08→20:41)
[2017-05-06] MEDS: IBUPROFEN 200 MG TAB PO PRN ×2 (09:14→18:14)
[2017-05-06 16:01] VITALS: BP 112/67; PULSE 86; TEMP 37; O2SAT 95
[2017-05-06] MEDS: TRAMADOL HCL 50 MG TAB PO PRN (18:11)
[2017-05-06 23:00] VITALS: BP 116/72; PULSE 77; TEMP 36.7; O2SAT 96
[2017-05-07] MEDS: IBUPROFEN 200 MG TAB PO PRN ×3 (03:13→18:21)
[2017-05-07] MEDS: LEVOTHYROXINE 112 MCG TAB PO SCH (06:32)
[2017-05-07 06:51] VITALS: BP 119/71; PULSE 101; TEMP 36.9; O2SAT 91
--- NOTE | 2017-05-07 07:48 | DIAGNOSTIC IMAGING REPORT ---
CHEST ONE VIEW PORTABLE CLINICAL HISTORY: Lobectomy. COMPARISON STUDY: Chest radiograph May 05, 2017. FINDINGS: A right Vopbej-h-Paza is in place. A right chest tube remains in place. Extensive subcutaneous gas within the right chest wall and right lower neck persists. A moderate to large right pneumothorax has increased in size. There is no left pneumothorax. There is no evidence of pulmonary edema. Mild right lower lung opacity is present. IMPRESSION: 1. Increase in size of a moderate to large right pneumothorax. Right chest tube in place. 2. Slight increase in extensive subcutaneous gas within the right chest wall and lower neck. Electronically signed by: Nickolas Henderson M.D. 05/07/2017 7:47 AM Dictated Date/Time: 05/07/2017 7:45 AM
[2017-05-07] MEDS: POLYETHYLENE (MIRALAX) 17 GM PACK PO SCH (08:43)
[2017-05-07] MEDS: DOCUSATE SODIUM 100 MG CAP PO SCH ×2 (08:43→21:19)
[2017-05-07] MEDS: BUDESONIDE/FORMOTEROL FUMARATE 160/4.5 60 PUFFS/INHALER INH SCH ×2 (08:44→21:19)
[2017-05-07] MEDS: NYSTATIN SUSP 500,000 U/5 ML UDC PO SCH ×4 (08:47→21:19)
[2017-05-07 14:35] LABS: QUANTIF TB AG-NIL 0.01 IU/ML; QUANTIFERON NIL 0.06 IU/ML
[2017-05-07 15:31] VITALS: BP 129/78; PULSE 87; TEMP 36.7; O2SAT 98
[2017-05-07] MEDS: TRAMADOL HCL 50 MG TAB PO PRN (22:20)
[2017-05-07 22:45] VITALS: BP 129/74; PULSE 81; TEMP 36.8; O2SAT 96
[2017-05-08] MEDS: IBUPROFEN 200 MG TAB PO PRN ×3 (05:07→21:10)
[2017-05-08] MEDS: LEVOTHYROXINE 112 MCG TAB PO SCH (05:18)
--- NOTE | 2017-05-08 07:05 | DIAGNOSTIC IMAGING REPORT ---
CHEST ONE VIEW PORTABLE CLINICAL HISTORY: pneumothorax dyspnea COMPARISON STUDY: 05/07/2017 FINDINGS: Slight decrease in volume of a right-sided pneumothorax. Right-sided chest tube unchanged in position. Stable subcutaneous emphysematous change. Left lung remains generally clear. Stable parenchymal density left infrahilar region. IMPRESSION: Right-sided pneumothorax stable to slightly diminished in volume compared to the prior study. All remaining components of the study are unchanged The above report was generated using voice recognition software. It may contain grammatical, syntax or spelling errors. Electronically signed by: Roland De La Vega M.D. 05/08/2017 7:03 AM Dictated Date/Time: 05/08/2017 7:01 AM
[2017-05-08 07:22] VITALS: BP 102/63; PULSE 85; TEMP 36.6; O2SAT 95
--- NOTE | 2017-05-08 08:51 | SURGERY PROGRESS NOTE ---
DATE: 05/08/2017 DATE: 05/08/2017 Ms. Crowley is now 12 days status post a robotic-assisted thoracoscopic resection with an emergent anterior thoracotomy for control of bleeding. She has had a quiet night. Her subcutaneous emphysema on physical exam is improved. She has not put out much through her chest tube. If her drainage decreases, we can attach a Heimlich valve and consider sending her home. I thought her x-ray looked a bit better today. She is afebrile. Her vital signs are stable. Saturations are excellent. She put out less than 200 mL and very little fluid. She certainly is not collecting fluid in her chest. At this point, I am going to keep her n.p.o. overnight. Her air leak is a bit better, but this is going on for 12 days now. If she is not significantly improved by tomorrow and her drainage has not decreased I will take her to the operating room to explore her tomorrow.
[2017-05-08] MEDS: DOCUSATE SODIUM 100 MG CAP PO SCH ×2 (09:06→21:00)
[2017-05-08] MEDS: POLYETHYLENE (MIRALAX) 17 GM PACK PO SCH (09:06)
[2017-05-08] MEDS: NYSTATIN SUSP 500,000 U/5 ML UDC PO SCH ×4 (09:06→21:05)
[2017-05-08] MEDS: BUDESONIDE/FORMOTEROL FUMARATE 160/4.5 60 PUFFS/INHALER INH SCH ×2 (09:09→21:05)
[2017-05-08 14:55] VITALS: BP 118/71; PULSE 86; TEMP 36.8; O2SAT 98
[2017-05-08 23:00] VITALS: BP 121/70; PULSE 82; TEMP 37.1; O2SAT 95
[2017-05-09 00:05] VITALS: O2SAT 95
[2017-05-09] MEDS: TRAMADOL HCL 50 MG TAB PO PRN (02:44)
[2017-05-09] MEDS: LEVOTHYROXINE 112 MCG TAB PO SCH (06:17)
[2017-05-09 06:51] VITALS: BP 120/74; PULSE 89; TEMP 36.8; O2SAT 96
--- NOTE | 2017-05-09 06:57 | DIAGNOSTIC IMAGING REPORT ---
CHEST ONE VIEW PORTABLE HISTORY: 71 years-old Female pneumothorax pneumothorax follow-up. Dyspnea. COMPARISON: Portable chest radiograph 05/08/2017 TECHNIQUE: Portable upright AP view of the chest FINDINGS: Cardiac silhouette is within normal limits. There is atherosclerosis of the aorta. Left lung is generally clear with unchanged subsegmental left mid lung atelectasis or scarring. There is decreased size of the right pneumothorax, now with visceral pleural separation at the lung apex up to 0.8 cm, previously 3.6. Right-sided chest tube is in unchanged positioning. Right subclavian Osbfyh-b-Vspk catheter is unchanged terminating near the superior cavoatrial junction. Areas of probable atelectasis are seen scattered throughout the right lung. Extensive subcutaneous emphysema of the right chest wall redemonstrated. IMPRESSION: Mildly decreased size of right pneumothorax with persistent extensive right chest wall subcutaneous emphysema. The above report was generated using voice recognition software. It may contain grammatical, syntax or spelling errors. Electronically signed by: Ramses Lopez M.D. 05/09/2017 6:55 AM Dictated Date/Time: 05/09/2017 6:53 AM
[2017-05-09] MEDS: BUDESONIDE/FORMOTEROL FUMARATE 160/4.5 60 PUFFS/INHALER INH SCH ×2 (08:51→20:53)
[2017-05-09] MEDS: DOCUSATE SODIUM 100 MG CAP PO SCH ×2 (08:52→20:54)
[2017-05-09] MEDS: IBUPROFEN 200 MG TAB PO PRN ×2 (08:52→19:57)
[2017-05-09] MEDS: POLYETHYLENE (MIRALAX) 17 GM PACK PO SCH (08:53)
[2017-05-09] MEDS: NYSTATIN SUSP 500,000 U/5 ML UDC PO SCH ×4 (08:53→20:53)
--- NOTE | 2017-05-09 09:07 | SURGERY PROGRESS NOTE ---
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 She had no complaints and slept well. Saturations are 96% on room air. Heart rate is in the 80s. Her lungs sound better. Subcutaneous emphysema has decreased on physical exam. She has no wheezing. Chest x-ray looked much better to me. The subcutaneous emphysema is noticeably decreased radiographically. She has a very tiny pneumothorax. Her air leak is smaller. She did drain about 190 mL yesterday but only 40 mL for the first shift today. The patient and I had multiple discussions and I considered taking her to the operating room today; however, this air leak is somewhat smaller. I think we should stop and wait this out. I think she is going to stop.
[2017-05-09 10:55] VITALS: BP 101/62; PULSE 98; TEMP 36.8; O2SAT 97
[2017-05-09 14:54] VITALS: BP 105/62; PULSE 90; TEMP 36.6; O2SAT 99
[2017-05-09 23:16] VITALS: BP 103/67; PULSE 92; TEMP 36.9; O2SAT 95
[2017-05-10] MEDS: IBUPROFEN 200 MG TAB PO PRN ×2 (04:56→20:51)
[2017-05-10] MEDS: LEVOTHYROXINE 112 MCG TAB PO SCH (05:58)
[2017-05-10 07:03] VITALS: BP 102/66; PULSE 95; TEMP 37; O2SAT 96
--- NOTE | 2017-05-10 07:37 | DIAGNOSTIC IMAGING REPORT ---
CHEST ONE VIEW PORTABLE CLINICAL HISTORY: pneumothorax COMPARISON STUDY: 05/09/2017 FINDINGS: The cardiac and mediastinal contours remain stable. The right-sided A-Port catheter remains unchanged in position. There is no change the position of the right-sided chest tube. There is extensive right-sided subcutaneous emphysema. A small right pneumothorax the pleural separation of 9 mm is suspected. There is no lobar consolidation.[ IMPRESSION: 1. Interval decrease in the size of the right-sided pneumothorax the pleural separation of 19 mm 2. Extensive right-sided subcutaneous emphysema Electronically signed by: Zeke Mirza M.D. 05/10/2017 7:36 AM Dictated Date/Time: 05/10/2017 7:35 AM
[2017-05-10] MEDS: BUDESONIDE/FORMOTEROL FUMARATE 160/4.5 60 PUFFS/INHALER INH SCH ×2 (08:41→20:50)
[2017-05-10] MEDS: DOCUSATE SODIUM 100 MG CAP PO SCH ×2 (08:41→20:50)
[2017-05-10] MEDS: POLYETHYLENE (MIRALAX) 17 GM PACK PO SCH (08:42)
[2017-05-10] MEDS: NYSTATIN SUSP 500,000 U/5 ML UDC PO SCH ×4 (08:42→20:50)
--- NOTE | 2017-05-10 09:24 | SURGERY PROGRESS NOTE ---
DATE: 05/10/2017 DATE: 05/10/2017 Ms. Crowley was seen today on 05/10/2017. Her x-ray looks as good as it looked since surgery. Her subcutaneous emphysema is decreased. Her pneumothorax is almost resolved. She has no fluid whatsoever in her chest. I am quite happy with her. She still has an intermittent air leak; however, I think at this point I would not do anything different with her. She looks about as good radiographically and clinically as I have seen her. We are going to continue our chest tube for the time being. I think she is going to seal this off completely. She is getting better.
[2017-05-10] MEDS: TRAMADOL HCL 50 MG TAB PO PRN ×2 (09:35→17:56)
[2017-05-10 15:14] VITALS: BP 110/69; PULSE 99; TEMP 37.3; O2SAT 98
[2017-05-10 16:30] VITALS: TEMP 37.1; O2SAT 96
[2017-05-10 17:39] VITALS: O2SAT 95
[2017-05-10 22:55] VITALS: BP 111/64; PULSE 80; TEMP 36.7; O2SAT 92
[2017-05-11] MEDS: TRAMADOL HCL 50 MG TAB PO PRN (02:30)
[2017-05-11] MEDS: LEVOTHYROXINE 112 MCG TAB PO SCH (05:58)
[2017-05-11 06:58] VITALS: BP 123/62; PULSE 86; TEMP 37.2; O2SAT 93
--- NOTE | 2017-05-11 07:16 | Surgery Progress Note ---
Subjective Date of Service: May 11, 2017. Pt. notes feeling more fatigued yesterday than what she previously noted. She has intermittent cough with discolored sputum and occasional chills. No fevers noted. She notes her apatite has been decreased. No N/V. No dysuria. No abdominal pain. She continues to ambulate. Objective Vitals Date Time Temp Pulse Resp B/P (MAP) Pulse Ox O2 Delivery O2 Flow Rate FiO2 05/11/17 06:58 37.2 86 16 123/62 (82) 93 Room Air 05/10/17 22:55 36.7 80 16 111/64 (80) 92 Room Air 05/10/17 20:00 Room Air 05/10/17 17:39 95 Room Air 05/10/17 16:30 37.1 96 Room Air 05/10/17 15:14 37.3 99 17 110/69 (83) 98 Room Air 05/10/17 07:55 Room Air 0.0 Physical Exam General: + well developed, + well nourished, No distress CV: + RRR Pulmonary: + lungs clear, No accessory muscle use, No respiratory distress Abdomen: + non-distended, + non tender, + soft, No distended, No guarding Extremities: + DP pulses (2+), No calf tenderness Neurologic: + alert & oriented x 3 Additional Notes: sub-q air palpated along posterior right chest wall. Incision are healing well. Drains / Tubes chest tube (right sided 1+ air leak noted; drained 160 cc last 24 hours) Assessment & Plan 71 year old female s/p RUL -continue use of IS and mobilization -pt. has had persistent air leak post-op but this has been improving: -continue CT to pleur-evac (drainage too high to place on Heimlich valve) -due to fatigue, chills, cough and constitutional symptoms there is concern for URI: -will start on Levaquin today -check CBC, PRP, CXR tomorrow OTHER -lovenox for DVT prevention
[2017-05-11] MEDS: ONDANSETRON INJ 2 MG/ML 2 ML VIAL IV PRN (07:59)
[2017-05-11] MEDS: BUDESONIDE/FORMOTEROL FUMARATE 160/4.5 60 PUFFS/INHALER INH SCH ×2 (09:22→20:43)
[2017-05-11] MEDS: LEVOFLOXACIN / D5W 750 MG in PREMIXED IN D5W 150 ML IV SCH (09:22)
[2017-05-11] MEDS: POLYETHYLENE (MIRALAX) 17 GM PACK PO SCH (09:23)
[2017-05-11] MEDS: ENOXAPARIN 40 MG/0.4 ML SYR SQ SCH (09:24)
[2017-05-11] MEDS: DOCUSATE SODIUM 100 MG CAP PO SCH ×2 (11:26→20:43)
[2017-05-11 11:43] VITALS: BP 109/63; PULSE 100; O2SAT 92
[2017-05-11 15:04] VITALS: BP 105/67; PULSE 98; TEMP 37.3; O2SAT 94
[2017-05-11] MEDS ORDERED: NURSING VERBAL MED ORDER ONE (15:45)
[2017-05-11] MEDS ORDERED: CALCIUM CARBONATE 500 MG CHEWABLE PO PRN (15:45)
[2017-05-11 16:54] LABS: HEMATOCRIT 26.8 % (37-47); MEAN CELL VOLUME 96.1 fL (80-100); MEAN CORPUSCULAR HEMOGLOBIN 31.5 pg (25-34); MEAN CORPUSCULAR HGB CONC 32.8 g/dl (32-36); MEAN PLATELET VOLUME 8.2 fL (7.4-10.4); PLATELET COUNT 383 K/uL (130-400); RED BLOOD COUNT 2.79 M/uL (4.2-5.4); WHITE BLOOD COUNT 11.81 K/uL (4.8-10.8)
[2017-05-11 17:37] LABS: ANISOCYTOSIS PRESENT; BASO % 0.3 %; BASO ABS # 0.03 K/uL (0-0.2); COMPLETE YES; EOS % 0.7 %; IG% 0.7 %; LYMPH % 3.4 %; MONO % 8.1 %; NEUT % 86.8 %
[2017-05-11] MEDS: IBUPROFEN 200 MG TAB PO PRN (20:06)
[2017-05-11 23:05] VITALS: BP 100/61; PULSE 88; TEMP 36.9; O2SAT 91
[2017-05-12] MEDS: IBUPROFEN 200 MG TAB PO PRN ×3 (02:13→21:23)
[2017-05-12] MEDS: LEVOTHYROXINE 112 MCG TAB PO SCH (05:37)
[2017-05-12 06:22] LABS: BASO % 0.3 %; BASO ABS # 0.04 K/uL (0-0.2); EOS % 4.4 %; HEMATOCRIT 25.4 % (37-47); IG% 0.5 %; LYMPH % 5.3 %; LYMPH ABS # 0.64 K/uL (1.2-3.4); MEAN CELL VOLUME 95.8 fL (80-100); MEAN CORPUSCULAR HEMOGLOBIN 32.8 pg (25-34); MEAN CORPUSCULAR HGB CONC 34.3 g/dl (32-36); MEAN PLATELET VOLUME 8.3 fL (7.4-10.4); MONO % 8.3 %; NEUT % 81.2 %; PLATELET COUNT 368 K/uL (130-400); RED BLOOD COUNT 2.65 M/uL (4.2-5.4); WHITE BLOOD COUNT 12.14 K/uL (4.8-10.8)
[2017-05-12 06:56] LABS: BUN/CREATININE RATIO 28.8 (10-20); CALCIUM 8.5 mg/dl (8.5-10.1); CREATININE 0.91 mg/dl (0.60-1.20)
[2017-05-12 07:17] LABS: COMPLETE YES
--- NOTE | 2017-05-12 07:26 | DIAGNOSTIC IMAGING REPORT ---
CHEST ONE VIEW PORTABLE CLINICAL HISTORY: pneumothorax postoperative COMPARISON STUDY: 05/10/2017 FINDINGS: Stable to minimally increased subcutaneous emphysema over the right hemithorax. Right-sided chest tube is unchanged in position. Unchanging small right upper pneumothorax. Left lung remains clear. IMPRESSION: Minimal residual right apical pneumothorax estimated at 5 mm. Subcutaneous emphysema minimally increased. The above report was generated using voice recognition software. It may contain grammatical, syntax or spelling errors. Electronically signed by: Roland De La Vega M.D. 05/12/2017 7:25 AM Dictated Date/Time: 05/12/2017 7:23 AM
[2017-05-12 07:43] VITALS: BP 93/56; PULSE 104; TEMP 36.8; O2SAT 91
--- NOTE | 2017-05-12 08:07 | Surgery Progress Note ---
Subjective Date of Service: May 12, 2017. Pt. notes she feels better today--less fatigue. No SOB. She denies fevers, but had some sweats last night. No N/V. She has continued to ambulate. No dysuria. Objective Vitals Date Time Temp Pulse Resp B/P (MAP) Pulse Ox O2 Delivery O2 Flow Rate FiO2 05/12/17 07:43 36.8 104 16 93/56 (68) 91 Room Air 05/12/17 00:00 Room Air 05/11/17 23:05 36.9 88 16 100/61 (74) 91 Room Air 05/11/17 16:00 Room Air 05/11/17 15:04 37.3 98 16 105/67 (80) 94 Room Air 05/11/17 11:43 100 16 109/63 (78) 92 Room Air Physical Exam General: + well developed, + well nourished, No distress Pulmonary: + pertinent finding (slight decrease at bases; sub -q air noted in posterior chest wall.), No accessory muscle use, No respiratory distress Neurologic: + bronze plater II-XII intact, + alert & oriented x 3 Laboratory Item Value Date Time Sodium Level 134 mmol/L L 05/12/17 0555 Potassium Level 4.0 mmol/L 05/12/17 0555 Blood Urea Nitrogen 26 mg/dl H 05/12/17 0555 Creatinine 0.91 mg/dl 05/12/17 0555 Item Value Date Time White Blood Count 12.14 K/uL H 05/12/17 0555 Hemoglobin 8.7 g/dL L 05/12/17 0555 Hematocrit 25.4 % L 05/12/17 0555 Platelet Count 368 K/uL 05/12/17 0555 Drains / Tubes chest tube (drained 90 cc yesterday; 30 cc last shift--air leak noted ) Assessment & Plan 71 year old female s/p RUL -continue use of IS and mobilization -pt. has had persistent air leak post-op but this has been improving: -continue CT to pleur-evac; will consider placing Heimlich valve in am -due to fatigue, chills, cough and constitutional symptoms (noted on 05/11/17) concern noted for URI: -Levaquin started (05/11/17--day #2 today) OTHER -lovenox for DVT prevention
[2017-05-12] MEDS: BUDESONIDE/FORMOTEROL FUMARATE 160/4.5 60 PUFFS/INHALER INH SCH ×2 (09:01→20:59)
[2017-05-12] MEDS: ENOXAPARIN 40 MG/0.4 ML SYR SQ SCH (09:02)
[2017-05-12] MEDS: POLYETHYLENE (MIRALAX) 17 GM PACK PO SCH (09:03)
[2017-05-12] MEDS: LEVOFLOXACIN / D5W 750 MG in PREMIXED IN D5W 150 ML IV SCH (09:04)
[2017-05-12] MEDS: DOCUSATE SODIUM 100 MG CAP PO SCH ×2 (09:04→20:58)
[2017-05-12] MEDS: TRAMADOL HCL 50 MG TAB PO PRN ×2 (14:18→23:38)
[2017-05-12 15:38] VITALS: BP 121/65; PULSE 96; TEMP 37; O2SAT 94
[2017-05-12 19:22] VITALS: PULSE 115; O2SAT 91
[2017-05-12 22:52] VITALS: BP 106/58; PULSE 88; TEMP 37.1; O2SAT 92
[2017-05-13] MEDS: LEVOTHYROXINE 112 MCG TAB PO SCH (05:28)
[2017-05-13] MEDS: POLYETHYLENE (MIRALAX) 17 GM PACK PO SCH (07:28)
[2017-05-13] MEDS: BUDESONIDE/FORMOTEROL FUMARATE 160/4.5 60 PUFFS/INHALER INH SCH ×2 (07:28→21:13)
[2017-05-13] MEDS: ENOXAPARIN 40 MG/0.4 ML SYR SQ SCH (07:29)
[2017-05-13] MEDS: DOCUSATE SODIUM 100 MG CAP PO SCH ×2 (07:29→21:00)
[2017-05-13 07:37] VITALS: BP 98/63; PULSE 100; TEMP 36.9; O2SAT 93
[2017-05-13] MEDS: LEVOFLOXACIN / D5W 750 MG in PREMIXED IN D5W 150 ML IV SCH (07:59)
--- NOTE | 2017-05-13 10:21 | SURGERY PROGRESS NOTE ---
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 Her lung is expanded. She complained of some pain over the weekend. This is improved. She has some chills but really no fevers. In addition, her white count was 12,140. Hemoglobin stable at 87. She has been ambulating in the hallway. She is tolerating a diet. She is moving her bowels. Her weight has been stable. Her x-ray shows essentially full expansion of her lung yesterday. She had a bit more subcutaneous emphysema. Her drainage has decreased and her chest tube is down to 40 mL over 24 hours. I attached to a Heimlich valve to her today with a small collection chamber. This should help her ambulation. Should she be stable with this, I will be trying to get her out of the hospital in the next few days. She is on Levaquin as SHE IS ALLERGIC TO PENICILLIN.
[2017-05-13 15:05] VITALS: BP 107/62; PULSE 83; TEMP 36.9; O2SAT 95
[2017-05-13] MEDS: IBUPROFEN 200 MG TAB PO PRN (21:14)
[2017-05-13 22:42] VITALS: BP 112/69; PULSE 90; TEMP 36.9; O2SAT 93
[2017-05-14] MEDS: IBUPROFEN 200 MG TAB PO PRN ×2 (04:17→20:52)
[2017-05-14] MEDS: LEVOTHYROXINE 112 MCG TAB PO SCH (05:56)
[2017-05-14 07:16] VITALS: BP 106/68; PULSE 102; TEMP 36.7; O2SAT 95
[2017-05-14] MEDS: ENOXAPARIN 40 MG/0.4 ML SYR SQ SCH ×2 (07:42→07:52)
[2017-05-14] MEDS: BUDESONIDE/FORMOTEROL FUMARATE 160/4.5 60 PUFFS/INHALER INH SCH ×2 (07:51→20:42)
[2017-05-14] MEDS: DOCUSATE SODIUM 100 MG CAP PO SCH ×2 (07:51→20:43)
[2017-05-14] MEDS: POLYETHYLENE (MIRALAX) 17 GM PACK PO SCH (07:52)
[2017-05-14] MEDS: LEVOFLOXACIN / D5W 750 MG in PREMIXED IN D5W 150 ML IV SCH (09:27)
--- NOTE | 2017-05-14 10:56 | DIAGNOSTIC IMAGING REPORT ---
CHEST 2 VIEWS ROUTINE CLINICAL HISTORY: assess for pneumothorax pain COMPARISON STUDY: 05/12/2017. FINDINGS: small right apical pneumothorax. Maximum pleural separation 1.5 cm. Subcutaneous emphysema stable from the prior exam. Right side chest tube unchanged in location. Left lung remains clear. IMPRESSION: 1. 1.5 cm right apical pneumothorax minimally increased in the prior exam. 2. Postoperative changes right hemithorax stable. 3. Subcutaneous emphysema is stable The above report was generated using voice recognition software. It may contain grammatical, syntax or spelling errors. Electronically signed by: Roland De La Vega M.D. 05/14/2017 10:55 AM Dictated Date/Time: 05/14/2017 10:53 AM
[2017-05-14] MEDS: TRAMADOL HCL 50 MG TAB PO PRN (12:16)
[2017-05-14 15:55] VITALS: BP 131/75; PULSE 92; TEMP 36.7; O2SAT 98
[2017-05-14 16:15] VITALS: O2SAT 98
[2017-05-14 23:20] VITALS: BP 122/69; PULSE 85; TEMP 36.9; O2SAT 96
[2017-05-15] MEDS: IBUPROFEN 200 MG TAB PO PRN (05:38)
[2017-05-15] MEDS: LEVOTHYROXINE 112 MCG TAB PO SCH (05:38)
[2017-05-15 06:45] LABS: CREATININE 0.78 mg/dl (0.60-1.20)
[2017-05-15 07:25] LABS: HEMATOCRIT 24.5 % (37-47); MEAN CELL VOLUME 95.7 fL (80-100); MEAN CORPUSCULAR HEMOGLOBIN 29.7 pg (25-34); MEAN PLATELET VOLUME 8.2 fL (7.4-10.4); PLATELET COUNT 396 K/uL (130-400); RED BLOOD COUNT 2.56 M/uL (4.2-5.4); WHITE BLOOD COUNT 6.94 K/uL (4.8-10.8)
[2017-05-15 07:30] VITALS: BP 105/67; PULSE 103; TEMP 36.9; O2SAT 93
--- NOTE | 2017-05-15 08:17 | DIAGNOSTIC IMAGING REPORT ---
CHEST ONE VIEW PORTABLE HISTORY: Follow-up pneumothorax COMPARISON: Chest 05/14/2017. FINDINGS: Right chest tube is unchanged in position. Right subclavian Port-A-Cath terminates in the SVC. No significant change in the right apical pneumothorax which demonstrates a pleural gap of 1.7 cm. No left pneumothorax. Right chest wall subcutaneous emphysema persists. The heart is stable in size. Linear densities within the right lower lung zone are again noted. Nodular focus overlying the left heart border remains unchanged. This measures 11 mm. No pleural effusions. Right postthoracotomy changes and peripheral midlung zone density persists. This favors postoperative change. IMPRESSION: 1. No change in the small right apical pneumothorax and right chest wall subcutaneous emphysema.. The right chest tube is unchanged in position. 2. Stable expected postoperative changes within the right hemithorax. 3. An 11 mm nodular density at the left cardiac border also remains stable. Electronically signed by: Last Mckeon M.D. 05/15/2017 8:15 AM Dictated Date/Time: 05/15/2017 8:12 AM
[2017-05-15] MEDS ORDERED: CLC100 PO (08:23)
[2017-05-15] MEDS ORDERED: ULT50X PO (08:23)
[2017-05-15] MEDS ORDERED: LEVO1TAB33 PO (08:23)
[2017-05-15] MEDS ORDERED: IBUP-1050 PO (08:23)
--- NOTE | 2017-05-15 08:26 | Discharge Instructions ---
Discharge Instructions Date of Service May 15, 2017. Admission Reason for Admission: Lung Cancer Discharge Discharge Diagnosis / Problem: Lung Cancer Discharge Goals Goal(s): Learn about illness Activity Recommendations Activity Limitations: as noted below Lifting Limitations: none 1. Do not drive if taking tramadol 2. Do not fly until cleared to do so by Dr. Ascencio 3. Keep your chest tube connected to Heimlich valve. Record drainage amounts when you empty the collection chamber. . Instructions / Follow-Up Instructions / Follow-Up 1. Appointment with Dr. Ascencio next week. Office will call you with date and time of appointment. Go to hospital 1 hour before appointment to have a chest x-ray taken. Current Hospital Diet Patient's current hospital diet: Regular Diet Discharge Diet Recommended Diet: Regular Diet Procedures Procedures Performed: Robotic Assisted Right Thoracoscopy with Upper Lobectomy, and Mediastinal Lymphadenectomy, Open thoracotomy Pending Studies Studies pending at discharge: no Medical Emergencies . Who to Call and When: Medical Emergencies: If at any time you feel your situation is an emergency, please call 911 immediately. . Non-Emergent Contact Non-Emergency issues call your: Surgeon Call Non-Emergent contact if: you have a fever, your pain is not controlled, wound has increased drainage . "Provider Documentation" section prepared by Michele Bravo. . VTE Core Measure Inpt VTE Proph given/why not?: Enoxaparin (Lovenox)SQ
[2017-05-15 08:53] VITALS: BP 105/67; PULSE 103; TEMP 36.9; O2SAT 93
[2017-05-15] MEDS: POLYETHYLENE (MIRALAX) 17 GM PACK PO SCH (09:00)
[2017-05-15] MEDS ORDERED: LEVOFLOXACIN 500 MG TAB PO ONE (09:00)
[2017-05-15] MEDS: DOCUSATE SODIUM 100 MG CAP PO SCH (09:00)
[2017-05-15] MEDS: BUDESONIDE/FORMOTEROL FUMARATE 160/4.5 60 PUFFS/INHALER INH SCH (09:32)
[2017-05-15] MEDS: ENOXAPARIN 40 MG/0.4 ML SYR SQ SCH (09:34)
--- NOTE | 2017-05-15 12:15 | DISCHARGE SUMMARY ---
DATE OF DISCHARGE: 05/15/2017 DISCHARGE DIAGNOSES: 1. 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 2. History of anal cell carcinoma with metastases. 3. Prolonged air leak. 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 This was metastatic to her lung and she underwent multiple procedures including repeat catheterization ablation SBRT. She had a new mass that grew very quickly in her right upper lobe and we did a navigational bronchoscopy and the pathology suggested a possible adenocarcinoma which was different. She did have a history of smoking and I was concerned this may be a lung primary. On 04/26/2017 I took the patient to the operating room and did a robot-assisted thoracoscopic surgery and removed her right upper lobe. We got into bleeding and I had to open the chest with a small anterior thoracotomy to control this. She did well, was extubated in the room after this. The only problem was she had an air leak that just would not resolve. I contemplated taking her back to the operating room several times, but she does have diseased lungs and as she slowly improved I elected to leave the tube in. Clinically, she did very well. She was ambulating in the hallway, moving her bowels, eating well and on room air. She had no pain. His incisions were clean. She finally got to the point where she quit draining fluid and her air leak was small but persistent but her lung stayed expanded with a Heimlich valve and I sent her home on 05/15/[address]. We will see her back in the office next week and hopefully get this removed.
== END 2017-05-15 10:44 | disposition home or self-care (01) | DRG 164 ==
LOC: C.ACU 05:33 → UNDOADMIN 07:01 → C.MSICU 07:01 → ENRESERV 13:44 → CANRESERV 13:44 → ENRESERV 13:55 → C.MSN 04-27 10:54 → C.MSICU 04-27 10:54 → C.MSN 04-29 11:14 → C.3E 05-06 14:17
PROVIDERS: ADMIT Surgery; ATTEND Surgery
PROC: 0BCF0ZZ Extirpation of Matter from Right Lower Lung Lobe, Open Approach (ICD-10-PCS; principal; 2017-04-26 07:30)
PROC: 0BTC4ZZ Resection of Right Upper Lung Lobe, Percutaneous Endoscopic Approach (ICD-10-PCS; principal; 2017-04-26 07:30)
PROC: 07B70ZX Excision of Thorax Lymphatic, Open Approach, Diagnostic (ICD-10-PCS; principal; 2017-04-26 07:30)
PROC: 0BBD0ZZ Excision of Right Middle Lung Lobe, Open Approach (ICD-10-PCS; principal; 2017-04-26 07:30)
PROC: 02QQ0ZZ Repair Right Pulmonary Artery, Open Approach (ICD-10-PCS; principal; 2017-04-26 07:30)
PROC: 8E0W4CZ Robotic Assisted Procedure of Trunk Region, Percutaneous Endoscopic Approach (ICD-10-PCS; principal; 2017-04-26 07:30)
DX: C78.01 Secondary malignant neoplasm of right lung (principal); C77.1 Secondary and unspecified malignant neoplasm of intrathoracic lymph nodes; A31.0 Pulmonary mycobacterial infection; I97.42 Intraoperative hemorrhage and hematoma of a circulatory system organ or structure complicating other procedure; J95.812 Postprocedural air leak; J95.811 Postprocedural pneumothorax; I95.81 Postprocedural hypotension; J06.9 Acute upper respiratory infection, unspecified; G60.9 Hereditary and idiopathic neuropathy, unspecified; J44.9 Chronic obstructive pulmonary disease, unspecified; E03.9 Hypothyroidism, unspecified; F17.210 Nicotine dependence, cigarettes, uncomplicated; Z85.048 Personal history of other malignant neoplasm of rectum, rectosigmoid junction, and anus; Z92.21 Personal history of antineoplastic chemotherapy; Z92.3 Personal history of irradiation; Z80.3 Family history of malignant neoplasm of breast; Z83.2 Family history of diseases of the blood and blood-forming organs and certain disorders involving the immune mechanism; Z83.3 Family history of diabetes mellitus; Z79.52 Long term (current) use of systemic steroids; Z88.0 Allergy status to penicillin

== ENCOUNTER → 2017-05-20 | Outpatient (CLI) | payer BC ==
[~2017-05-20] MED LIST changes: +CLC100 PO; +IBUP-1050 PO; +LEVO1TAB33 PO; +ULT50X PO
--- NOTE | 2017-05-20 10:23 | DIAGNOSTIC IMAGING REPORT ---
CHEST 2 VIEWS ROUTINE CLINICAL HISTORY: J93.9 [id number] pneumothorax COMPARISON STUDY: 05/15/2017 FINDINGS: Right-sided pneumothorax somewhat diminished in volume from the prior study. Small residual at the right base having a maximum pleural separation of 5 mm. This is improved. Subcutaneous emphysematous changes stable to slightly improved. Left lung remains generally clear. Central catheter remains this. Vena cava. IMPRESSION: Mildly improved exam. Moderate decrease in volume of a small right-sided pneumothorax. Stable postoperative change The above report was generated using voice recognition software. It may contain grammatical, syntax or spelling errors. Electronically signed by: Roland De La Vega M.D. 05/20/2017 10:22 AM Dictated Date/Time: 05/20/2017 10:21 AM
== END | disposition home or self-care (01) ==
LOC: C.RAD 09:36
PROVIDERS: ATTEND Surgery
DX: J93.9 Pneumothorax, unspecified (principal)

== ENCOUNTER → 2017-05-27 | Outpatient (CLI) | payer BC ==
[~2017-05-27] MED LIST changes: -LEVO1TAB33 PO
--- NOTE | 2017-05-27 10:13 | DIAGNOSTIC IMAGING REPORT ---
CHEST 2 VIEWS ROUTINE HISTORY: 71 years-old Female J93.9 [id number] right sided pneumothorax follow-up. COMPARISON: Chest radiographs 05/20/2017 TECHNIQUE: Frontal and lateral views of the chest FINDINGS: Right sided subclavian Qcltjf-z-Jlfr catheter appears unchanged. Right-sided chest tube is again noted with unchanged position. There are postsurgical changes of the right lung redemonstrated right-sided pneumothorax is not definitely seen. There is decreased amount of subjacent emphysema along the right chest wall which is now moderate. Pleural thickening along the right lateral hemithorax is unchanged with persistent blunting of the right costophrenic angle. Hazy bibasilar opacities suggest atelectasis. Lungs are hyperinflated. Postsurgical changes of the right rib cage are noted. IMPRESSION: 1. Stable position of right-sided chest tube without definite right-sided pneumothorax identified. Persistent small volume of right pleural fluid is noted. 2. Decreased amount of right chest wall subcutaneous emphysema. The above report was generated using voice recognition software. It may contain grammatical, syntax or spelling errors. Electronically signed by: Ramses Lopez M.D. 05/27/2017 10:11 AM Dictated Date/Time: 05/27/2017 10:05 AM
[2017-05-27 11:19] LABS: BASO % 0.9 %; BASO ABS # 0.09 K/uL (0-0.2); EOS % 18.3 %; HEMATOCRIT 27.6 % (37-47); IG% 0.5 %; LYMPH % 4.6 %; LYMPH ABS # 0.45 K/uL (1.2-3.4); MEAN CELL VOLUME 94.2 fL (80-100); MEAN CORPUSCULAR HEMOGLOBIN 29.4 pg (25-34); MEAN CORPUSCULAR HGB CONC 31.2 g/dl (32-36); MEAN PLATELET VOLUME 8.3 fL (7.4-10.4); NEUT % 61.7 %; PLATELET COUNT 375 K/uL (130-400); RED BLOOD COUNT 2.93 M/uL (4.2-5.4); WHITE BLOOD COUNT 9.79 K/uL (4.8-10.8)
--- NOTE | 2017-05-27 11:21 | DIAGNOSTIC IMAGING REPORT ---
CHEST 2 VIEWS ROUTINE HISTORY: 71 years-old Female PNEUMOTHORAX status post chest tube removal. History of right-sided pneumothorax. COMPARISON: Chest radiograph of same day at 9:58 AM TECHNIQUE: Frontal and lateral views of the chest FINDINGS: There has been interval removal of the previously noted right-sided chest tube. Blunting of the right costophrenic angle is redemonstrated suggesting subtle small pleural effusion. Right sided subclavian Lbtbrt-a-Yrxl catheter is unchanged. Postsurgical changes of the right lung with right-sided volume loss and pleural thickening are again seen. No definite right-sided pneumothorax is identified. Moderate degree of subcutaneous emphysema of the right chest wall again seen. Chronic interstitial changes are seen within the bilateral lungs. Cardiac silhouette is within normal limits. There is atherosclerosis of the aorta. Postsurgical changes of the bony right hemithorax redemonstrated. IMPRESSION: 1. Status post right-sided chest tube removal without definite pneumothorax identified. 2. Persistent blunting of the right costophrenic angle suggests small effusion. The above report was generated using voice recognition software. It may contain grammatical, syntax or spelling errors. Electronically signed by: Ramses Lopez M.D. 05/27/2017 11:20 AM Dictated Date/Time: 05/27/2017 11:17 AM
[2017-05-27 11:46] LABS: ANISOCYTOSIS PRESENT; COMPLETE YES; HYPOCHROMIA PRESENT
== END | disposition home or self-care (01) ==
LOC: C.RAD 09:36
PROVIDERS: ATTEND Surgery
DX: J93.9 Pneumothorax, unspecified (principal); R91.8 Other nonspecific abnormal finding of lung field

== ENCOUNTER → 2017-06-03 | Outpatient (CLI) | payer BC ==
--- NOTE | 2017-06-03 10:24 | DIAGNOSTIC IMAGING REPORT ---
TWO VIEW CHEST CLINICAL HISTORY: Pneumothorax. Right upper lobe resection. FINDINGS: PA and lateral chest radiographs are compared to study dated 05/27/2017 and correlated with chest CT dated 04/24/2017. The PA view is degraded by patient rotation. A right subclavian central venous infusion port is unchanged in position. The heart is top normal for projection and there is atherosclerotic calcification of the thoracic aorta. The pulmonary vasculature is noncongested. Emphysema and chronic interstitial thickening are similar to previous. There are postoperative changes and volume loss in the right lung consistent with right upper lobe resection. Suture material projects over the right upper lobe. Subpleural opacities in the right midlung are likely related to postoperative change. No airspace consolidation is seen typical for pneumonia. Pleural fluid is seen in the right lung base on the lateral view. Linear opacities in the lingula are similar to previous. No pneumothorax is identified. Subcutaneous emphysema along the right chest wall has decreased from previous. The skeletal structures are osteopenic. Postoperative change is identified in the right sided ribs. IMPRESSION: 1. Emphysema and postoperative change from right upper lobe pulmonary resection as above. 2. No pneumothorax is clearly identified. 3. Linear opacities in the lingula are similar to previous. Electronically signed by: Milton Sherman M.D. 06/03/2017 10:22 AM Dictated Date/Time: 06/03/2017 10:18 AM
== END | disposition home or self-care (01) ==
LOC: C.RAD 09:43
PROVIDERS: ATTEND Physician Assistant
DX: J93.9 Pneumothorax, unspecified (principal); J43.9 Emphysema, unspecified; Z98.890 Other specified postprocedural states; R91.8 Other nonspecific abnormal finding of lung field

== ENCOUNTER → 2017-06-18 | Outpatient (CLI) | payer BC ==
--- NOTE | 2017-06-18 09:27 | DIAGNOSTIC IMAGING REPORT ---
CHEST 2 VIEWS ROUTINE CLINICAL HISTORY: C78.00 Carcinoma metastatic to [id number] COMPARISON STUDY: 06-18 FINDINGS: There is radiographic evidence of emphysema. There is a right-sided A-Port catheter present. Again evident are fractures of the right seventh and eighth ribs. There is a 5 cm air-fluid levels within the right lung apex, consistent with either a loculated hydropneumothorax or cavitary lesion..[ There is no acute lobar consolidation. There are linear scar/atelectatic changes within the left midlung zone. IMPRESSION: 1. Emphysema 2. Interval decrease in the size of the right apical air-fluid level which currently measures 5 cm Electronically signed by: Zeke Mirza M.D. 06/18/2017 9:26 AM Dictated Date/Time: 06/18/2017 9:22 AM
== END | disposition home or self-care (01) ==
LOC: C.RAD1850 09:11
PROVIDERS: ATTEND Surgery
DX: C78.00 Secondary malignant neoplasm of unspecified lung (principal); J43.9 Emphysema, unspecified

== ENCOUNTER → 2017-10-15 | Outpatient (CLI) | payer OTHER ==
[~2017-10-15] MED LIST changes: +OPTIRAY 320 IV PRN
--- NOTE | 2017-10-15 15:24 | DIAGNOSTIC IMAGING REPORT ---
ABD/PELVIS IV AND ORAL CONT CT DOSE: HISTORY: Anal carcinoma ANAL CANCER TECHNIQUE: Multiaxial CT images of the abdomen and pelvis were performed following the use of intravenous and oral contrast. A dose lowering technique was utilized adhering to the principles of ALARA. COMPARISON STUDY: 03/06/2017 FINDINGS: Minimal nodularity right lung base is stable. Mild superimposed right basilar atelectatic change. Liver is uniform in appearance. Pancreas and kidneys are unremarkable. Several small renal cortical cysts are stable. 6 mm nonobstructing calcification lower right kidney also stable. Mild left ischemic change abdominal aorta. No evidence for aneurysm or dissection. No significant abdominal or retroperitoneal adenopathy. Fibrillation of the pelvis is unchanged from the prior study. No evidence for interval mass collection or adenopathy. Pelvic bowel pattern is nonobstructive. Bladder is midline. Inguinal regions are unremarkable. Generalized degenerative change of the osseous structures throughout. IMPRESSION: Stable evaluation of the abdomen and pelvis. No significant change from the prior study. The above report was generated using voice recognition software. It may contain grammatical, syntax or spelling errors. Electronically signed by: Roland De La Vega M.D. 10/15/2017 3:23 PM Dictated Date/Time: 10/15/2017 3:18 PM
--- NOTE | 2017-10-15 15:31 | DIAGNOSTIC IMAGING REPORT ---
(CHEST) THORAX WITH CT DOSE: 511.43 mGy.cm HISTORY: Renal carcinoma ANAL CANCER TECHNIQUE: Multiaxial CT images of the chest were performed following the intravenous administration of contrast. A dose lowering technique was utilized adhering to the principles of ALARA. COMPARISON: 04/24/2017 FINDINGS: Somewhat progressive parenchymal nodularity compared to the prior study. Right apical posterior pleural based nodular density is somewhat progressive of the maximum dimension 2.7 cm. There is a small cystic and or chronic central component area Baseline emphysematous changes similar. Apical fibrotic change bilaterally is stable. Scattered atelectatic and/or fibrotic changes are also stable and are slightly progressive at the right base. Somewhat progressive 2.3 cm nodule of the lingula. Interval development of 4 and 5 mm nodules in the right pericardiac region right upper lobe transaxial image 35. Stable to slightly progressive right basilar parenchymal nodularity now with superimposed atelectatic and/or fibrotic change. Degenerative change of the osseous structures throughout. Hilar and mediastinal regions show no significant scarlet pathology. IMPRESSION: 1. Progressive parenchymal nodularity with a moderate increase in size as well as number of parenchymal nodules present. 2. Stable emphysematous change 3. The appearance suggests somewhat progressive metastatic pulmonary nodularity The above report was generated using voice recognition software. It may contain grammatical, syntax or spelling errors. Electronically signed by: Roland De La Vega M.D. 10/15/2017 3:30 PM Dictated Date/Time: 10/15/2017 3:24 PM
== END | disposition home or self-care (01) ==
LOC: C.CTS 14:31
PROVIDERS: ATTEND Internal Medicine Hematology & Oncology
DX: C12 Malignant neoplasm of pyriform sinus (principal)

== ENCOUNTER → 2017-10-24 | Outpatient (CLI) | payer OTHER ==
[~2017-10-24] MED LIST changes: -OPTIRAY 320 IV PRN
== END | disposition home or self-care (01) ==
LOC: C.PATHSPEC 17:16
PROVIDERS: ATTEND Obstetrics & Gynecology
DX: A63.0 Anogenital (venereal) warts (principal); L83 Acanthosis nigricans; N90.89 Other specified noninflammatory disorders of vulva and perineum

== ENCOUNTER → 2017-11-22 | Outpatient (CLI) | payer OTHER ==
[2017-11-22 12:36] LABS: TRANSFERRIN 296 mg/dl (200-360)
[2017-11-22 12:42] LABS: HEMATOCRIT 32.1 % (37-47); HEMOGLOBIN 9.9 g/dL (12.0-16.0); MEAN CELL VOLUME 84.9 fL (80-100); MEAN CORPUSCULAR HEMOGLOBIN 26.2 pg (25-34); MEAN CORPUSCULAR HGB CONC 30.8 g/dl (32-36); MEAN PLATELET VOLUME 8.9 fL (7.4-10.4); PLATELET COUNT 248 K/uL (130-400); RED CELL DISTRIBUTION WIDTH CV 21.2 % (11.5-14.5); RED CELL DISTRIBUTION WIDTH SD 66.1 fL (36.4-46.3); WHITE BLOOD COUNT 7.08 K/uL (4.8-10.8)
[2017-11-22 12:49] LABS: BASO % 1.4 %; EOS % 5.9 %; EOS ABS # 0.42 K/uL (0-0.5); IG# 0.01 K/uL (0.00-0.02); LYMPH % 6.5 %; LYMPH ABS # 0.46 K/uL (1.2-3.4); MONO % 8.3 %; MONO ABS # 0.59 K/uL (0.11-0.59); NEUT % 77.8 %
== END | disposition home or self-care (01) ==
LOC: C.LAB1850 09:44
PROVIDERS: ATTEND Internal Medicine Pulmonary Disease
DX: R91.8 Other nonspecific abnormal finding of lung field (principal)

== ENCOUNTER → 2017-12-02 | Outpatient (CLI) | payer OTHER | END | disposition home or self-care (01) | LOC: C.LAB1850 14:17 | PROVIDERS: ATTEND Internal Medicine Pulmonary Disease | DX: E03.9 Hypothyroidism, unspecified (principal) ==

== ENCOUNTER → 2018-01-08 | Outpatient (CLI) | payer OTHER ==
--- NOTE | 2018-01-08 14:44 | DIAGNOSTIC IMAGING REPORT ---
(CHEST) THORAX WITHOUT CT DOSE: 203.88 mGy.cm HISTORY: C34.90 Non-small cell lung cancer [id number] TECHNIQUE: Multiaxial CT images of the chest were performed without contrast. A dose lowering technique was utilized adhering to the principles of ALARA. COMPARISON: PET CT 10/23/2017. Chest CT 10/15/2017. FINDINGS: Moderate emphysema. Postoperative changes consistent with prior right upper lobectomy are again noted. No severe change in the right apical cavitary lesions. Dominant cavitary lesion measures 2 cm and demonstrates a thickened wall. This is not significantly changed. Increase in size in the bilateral pleural nodules compared to the prior study. Dominant lingular nodule measures 3.6 cm, previously measuring 3.2 cm. There are 3 nodules seen within the medial aspect of right middle lobe the largest measuring 1.2 cm. This previously measured 8 mm. A few additional scattered subcentimeter nodules within the residual right lung have also slightly increased in size. A 6 mm focus of nodular thickening adjacent to the right suprahilar C2 material on image 98 has also slightly increased in size. This is also consistent with progression of metastatic disease. There is bronchiectasis. The central airways are patent. No pneumothorax. No pleural effusions. The visualized liver and spleen are unremarkable. Normal adrenal glands. Right subclavian Port-A-Cath terminates at the distal SVC. No mediastinal or hilar lymphadenopathy. The heart is normal in size. Old, healed bilateral rib fractures. No suspicious lytic or blastic osseous lesions. IMPRESSION: 1. Interval increase in size in the bilateral pulmonary nodules as described above consistent with worsening metastatic disease. 2. Emphysema. 3. Postoperative changes as described above. Stable cavitary foci seen within the right lung apex. Electronically signed by: Last Mckeon M.D. 01/08/2018 2:43 PM Dictated Date/Time: 01/08/2018 2:32 PM
== END | disposition home or self-care (01) ==
LOC: C.CTS 14:18
PROVIDERS: ATTEND Surgery
DX: C34.90 Malignant neoplasm of unspecified part of unspecified bronchus or lung (principal); J43.9 Emphysema, unspecified; R91.8 Other nonspecific abnormal finding of lung field

== ENCOUNTER → 2018-04-07 | Outpatient (CLI) | payer BC ==
[2018-04-07 10:55] LABS: BASO ABS # 0.07 K/uL (0-0.2); EOS % 4.5 %; EOS ABS # 0.31 K/uL (0-0.5); HEMATOCRIT 36.2 % (37-47); HEMOGLOBIN 11.5 g/dL (12.0-16.0); IG# 0.02 K/uL (0.00-0.02); LYMPH % 9.7 %; LYMPH ABS # 0.67 K/uL (1.2-3.4); MEAN CELL VOLUME 97.8 fL (80-100); MEAN CORPUSCULAR HEMOGLOBIN 31.1 pg (25-34); MEAN CORPUSCULAR HGB CONC 31.8 g/dl (32-36); MONO % 5.3 %; MONO ABS # 0.37 K/uL (0.11-0.59); NEUT % 79.2 %; NEUT ABS # 5.48 K/uL (1.4-6.5); PLATELET COUNT 195 K/uL (130-400); RED CELL DISTRIBUTION WIDTH CV 14.1 % (11.5-14.5); RED CELL DISTRIBUTION WIDTH SD 50.7 fL (36.4-46.3); WHITE BLOOD COUNT 6.92 K/uL (4.8-10.8)
[2018-04-07 11:15] LABS: ALBUMIN 3.5 gm/dl (3.4-5.0); ALT/SGPT 29 U/L (12-78); AST/SGOT 29 U/L (15-37); BLOOD UREA NITROGEN 21 mg/dl (7-18); CALCIUM 9.2 mg/dl (8.5-10.1); CARBON DIOXIDE 25 mmol/L (21-32); CREATININE 0.81 mg/dl (0.60-1.20); GLUCOSE 89 mg/dl (70-99); POTASSIUM 3.9 mmol/L (3.5-5.1); SODIUM 140 mmol/L (136-145)
[2018-04-07 11:20] LABS: ALKALINE PHOSPHATASE 65 U/L (45-117); TOTAL PROTEIN 6.6 gm/dl (6.4-8.2)
== END ==
LOC: C.LABSPEC 10:39
PROVIDERS: ATTEND Nurse Practitioner Family
DX: C21.0 Malignant neoplasm of anus, unspecified (principal)

== ENCOUNTER → 2018-04-16 | Outpatient (CLI) | payer BC ==
--- NOTE | 2018-04-16 12:44 | DIAGNOSTIC IMAGING REPORT ---
(CHEST) THORAX WITHOUT CLINICAL HISTORY: 72 years-old Female presenting with C78.00,J44.9,R91.8, non-small cell lung cancer. TECHNIQUE: Multidetector CT imaging of the chest was performed without the use of intravenous contrast. IV contrast: None. A dose lowering technique was used consistent with the principles of ALARA (as low as reasonably achievable). COMPARISON: 01/08/2018. CT DOSE (mGy.cm): The estimated cumulative dose is 210.11 mGy.cm. 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 On soft tissue windows, right subclavian Mediport terminates in the mid SVC. Thyroid either atrophic or absent. No axillary, supraclavicular, or mediastinal lymphadenopathy. Evaluation of the caroline limited without intravenous contrast. Atherosclerosis of the aorta. Normal heart size. Coronary artery and aortic valve calcification. No pericardial or pleural effusion. Gallbladder noted anterior to the liver. On lung windows, postsurgical changes of right upper lobectomy. Postsurgical changes of a wedge resection in the right lower lobe. Emphysema. Redemonstration of the cavitary region of consolidation at the superior segment of the right lower lobe. This is not changed in size or configuration from the prior exam and communicates with the bronchial tree. Lobular solid right middle lobe nodule now measures 2.3 cm, previously measured as 2 separate nodules though with an overall dimension of 2.1 cm on the prior exam (series 4 image 178). Additional solid right middle lobe nodule measures 8 mm, previously 4 mm (series 4 image 217). Central solid right lower lobe nodule measures 9 mm, previously 5 mm (series 4 image 215). Solid posterior basal right lower lobe nodule measures 3 mm, previously 2 mm (series 4 image 268). Lobular solid lingular mass measures 3.5 cm, previously 3.6 cm (series 4 image 182). Solid 5 mm nodule in the left upper lobe, previously 3 mm (series 4 image 79). Minimal debris noted in the lower trachea. No pneumothorax. On bone windows, degenerative changes of the spine. Vertebral body height loss at several mid to lower thoracic vertebral body levels secondary to osteopenia. Calcification of the posterior longitudinal ligament or displaced disc material effaces the right paracentral spinal canal at the level of T10-11. IMPRESSION: 1. Multiple solid pulmonary nodules, which have overall increased in size since the prior exam. This is concerning for progression of disease. 2. Postsurgical changes of right upper lobectomy and right lower lobe wedge resection. 3. Emphysema. Electronically signed by: Chaitanya Hall M.D. 04/16/2018 12:43 PM Dictated Date/Time: 04/16/2018 12:30 PM
== END | disposition home or self-care (01) ==
LOC: C.CTS 12:03
PROVIDERS: ATTEND Internal Medicine Pulmonary Disease
DX: C78.00 Secondary malignant neoplasm of unspecified lung (principal); R91.8 Other nonspecific abnormal finding of lung field; J43.9 Emphysema, unspecified

== ENCOUNTER 2019-01-01 06:43 | Inpatient (IN) ==
--- NOTE | 2018-12-30 13:25 | Anesthesiology Consultation ---
Date of Service December 30, 2018 Assessment & Plan (1) Encounter for pre-operative examination: Case reviewed with Dr. Luna-- nothing further needed prior to surgery; acceptable risk for surgery. Chart Review Chart Review: Acceptable Risk for Surgery and Patient NOT seen in Pre Admission Testing Consults Requested none ASA ASA4 Proposed Anesthesia Anesthesia Type: General Risk / Benefits Reviewed With: PT / POA / Parent / Guardian, Accepts Plan and Informed Consent Obtained History Surgery Operation Date: 01/01/19 08:15 Proposed Procedures p Rigid and Flexible Bronchoscopy with Removal of Stent - Manfred Ascencio MD, FACS Height/Weight Height: 5 ft 10 in Weight: 50.349 kg Allergies Allergy/AdvReac Type Severity Reaction Status Date / Time amoxicillin Allergy Severe SLIGHT Verified 01/01/19 07:02 TONGUE SWELLING Medications Home Medications Medication Instructions Recorded Confirmed Last Taken Fiber Gummies 3 tab PO DAILY 08/19/18 01/01/19 12/31/18 18:00 Symbicort 2 puff INHALATION BID 08/19/18 12/30/18 01/01/19 06:30 albuterol sulfate 2 puff INHALATION QID PRN 08/19/18 01/01/19 01/01/19 06:30 ibuprofen 400 mg PO QPM 08/19/18 01/01/19 12/31/18 18:00 levothyroxine 88 mcg PO QAM 08/19/18 12/30/18 01/01/19 05:30 prednisone 7.5 mg PO QAM 08/19/18 12/30/18 01/01/19 06:30 alprazolam 0.25 mg tablet 0.25 mg PO DAILY PRN tab 12/12/18 01/01/19 12/31/18 08:00 levofloxacin 500 mg tablet 500 mg PO DAILY 12/29/18 01/01/19 12/31/18 09:00 Active Medications Generic Name Dose Route Start Last Admin Trade Name Freq PRN Reason Stop Dose Admin Lactated Ringer's 1,000 mls @ 15 mls/hr 01/01/19 06:00 01/01/19 07:08 Lr IV 01/02/19 05:59 15 mls/hr .Q24H LISA Administration NPO Date Last Intake of Fluids: 01/01/19 Time Last Intake of Fluids: 06:30 Date Last Intake of Solids: 12/31/18 Time Last Intake of Solids: 18:00 Past Medical History Medical History Anal cancer + METS (LUNGS) S/P CHEMO/RADIATION Anemia COPD (chronic obstructive pulmonary disease) Pulmonary nodules Transverse myelitis HX (RESOLVED); AT LEAST 9+ YEARS AGO PER PCP RECORDS Asthma INHALER PRN (2X/WEEK AVERAGE); PER PATIENT, ON CHRONIC PREDNISONE 2/2 ?AUTOIMMUNE DISORDER BUT PER PCP RECORDS, SHE IS ON THIS 2/2 ASTHMA* Hypothyroidism Neuropathy CHRONIC BILATERAL FEET/HANDS 20+ YEARS Exercise / Class Metabolic Activity III < 4 Walking/Shop/Light housework Past Family History Family History Grandfather (Maternal) Family history of diabetes mellitus Family/Other Family history of diabetes mellitus Past Surgical History Surgical History History of surgery TRACHEAL STENT= 11/17/18= MAC SEDATION AT [facility] History of bronchoscopy EBUS WITH BIOPSIES, BRONCHOSCOPY, INSERTION OF RADIOACTIVE SEED CARRIER= 08/28/18= LMA#4 IGEL History of cataract extraction with lens replacement History of colonoscopy History of herniorrhaphy History of lobectomy of lung RLL History of tonsillectomy History of vein stripping LEGS Past Anesthesia History No Hx of Anesthesia Complications and No Family Hx of Anesthesia Complications History of PONV No Hx of PONV, No Family Hx of PONV and No Hx of Motion Sickness Social History Smoking Status: Former smoker tobacco type: cigarettes Smoking cigarettes per day: HX OF 1-2 CIGARETTES PER DAY, QUIT 1 MONTH AGO. Do You Dip or Chew Tobacco: No Smoking End Date: NEVER A "HEAVY SMOKER" - OCC SMOKER - QUIT 6 MONTHS AGO Hx Alcohol Use: No Hx Substance Use: No substance use type: does not use Physical Exam Vital Signs Last Vital Signs Temp 37.1 C 01/01/19 07:11 Pulse 106 H 01/01/19 07:11 Resp 20 01/01/19 07:11 BP 146/72 H 01/01/19 07:11 Pulse Ox 95 01/01/19 07:11 Constitutional + cachectic ENMT Mouth: no dentition abnormality Neck normal visual inspection and trachea midline; neck extension not limited Respiratory + uses accessory muscles Auscultation: + rhonchi Cardiovascular Rate/Rhythm: regular rate and regular rhythm Heart Sounds: no murmur Vessels: no carotid bruit Musculoskeletal Spine: normal cervical ROM Neurologic moves all extremities Motor/Sensory: + sensory deficit Psychiatric Orientation: alert and oriented x 3 Testing Electrocardiogram Date: 08/19/18 ST at 103bpm. Right atrial enlargement. Chest X-Ray Date: 11/27/18 No acute process. Emphysema with chronic interstitial coarsening. Unchanged appearance of the pulmonary metastasis which includes a 3.4 cm lingular mass. Postoperative changes of the right hemithorax. Laboratory Results 11/13/18 WBC 5.86 H/H 11.7/36.4 PLATELETS 224 SODIUM 143 POTASSIUM 3.5 CHLORIDE 109 CO2 26 BUN 22 CREATININE 0.91 GLUCOSE 113
--- NOTE | 2018-12-31 21:27 | History and Physical Report ---
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 She has had multiple procedures including radiofrequency catheter ablation, stereotactic radiation, a right upper lobectomy, brachytherapy for a right bronchus intermedius narrowing, and more recently insertion of a tracheal stent for tracheal narrowing due to tumor encroachment and subsequent radiation therapy. This was inserted on 11/17/2018. Her radiation has concluded and we are going to remove this with a flexible or possibly a rigid bronchoscopy on 01/01/2019 at [facility]. PAST MEDICAL HISTORY: 1. Metastatic squamous cell carcinoma of the anus. 2. Metastases to lung. 3. History of cigarette smoking. 4. Chronic obstructive pulmonary disease. 5. Hypothyroidism. 6. Idiopathic neuropathy of many years' duration. 7. Anemia. 8. Allergic rhinitis. 9. Dyslipidemia. 10. Transverse myelitis in the past. PAST SURGICAL HISTORY: 1. History of muscle biopsy. 2. 2, para 2. 3. Tonsillectomy, adenoidectomy. 4. Port-A-Cath insertion with subsequent removal. 5. Wedge resection of lung with right upper lobectomy. 6. Umbilical hernia repair. 7. Saphenous vein ligation. 8. Cataracts. 9. Multiple bronchoscopies. FAMILY MEDICAL HISTORY: The patient had a grandmother who from breast cancer. There is also history of diabetes mellitus. SOCIAL HISTORY: The patient currently lives alone. She has family that is very supportive. She does have a dog. She quit smoking in the past but smoked lightly for several years. 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 MEDICATIONS: 1. Symbicort. 2. Albuterol. 3. Ibuprofen. 4. Synthroid. 5. Prednisone. 6. Ativan. 7. Levaquin. 8. Fiber gummies. ALLERGIES: THE PATIENT GETS TONGUE SWELLING WITH AMOXICILLIN. REVIEW OF SYSTEMS: The patient's weight is an issue as she has been quite thin her entire life, but has been unable to gain weight. She is quite thin, but at this point she has had relatively fair p.o. intake. She has had no GI issues. She does develop quite a bit of coughing. It occasionally is productive. She is now having yellow and green sputum and was started on Levaquin a few days ago. She has had no skin breakdown. She has had no visual or auditory changes. She does have problems with her peripheral neuropathy. She has had no leg edema. She had no palpitations or chest pain. PHYSICAL EXAMINATION: GENERAL: This is a 5-feet 10-inch, 110-pound female who is awake, alert, and oriented. HEENT: Extraocular movements are intact. Pupils are equal, round and reactive. Sclerae are anicteric. She is quite thin. Her neck is thin but she has no lymphadenopathy. She has no stridor. LUNGS: She does have rhonchi in both lung slois, mild end-expiratory wheezing. She has no axillary or supraclavicular lymphadenopathy. HEART: She has a regular rate and rhythm of her heart. ABDOMEN: Flat, soft, nontender. EXTREMITIES: She has no peripheral edema. She has good peripheral pulses. She has no joint effusions. NEUROLOGIC: She is completely intact except for a peripheral neuropathy which has manifested itself in some muscle wasting in the musculature of her hands and feet. Otherwise, she is awake, alert and oriented with no other focal deficits. ASSESSMENT AND PLAN: Indwelling tracheal stent. We plan on removing this on 01/01/2019. I have discussed this thoroughly with the patient as well as Dr. Layne and Dr. Rosado. Dr. Layne and I reviewed her CT scan as she has had decrease in the size of the tumor.
[~2019-01-01 06:43] MED LIST changes: -CLBPO15 TOP; -CLC100 PO; -IBUP-103 PO; -IBUP-1050 PO; -LEVO112T4 PO; +LR 15ML/HR IV SCH; -PRED-301 PO; -SYMIN INH; -ULT50X PO; -VNTHFA/IN INH
[2019-01-01] MEDS ORDERED: MIDAZOLAM HCL 1 MG/ML 2ML VIAL ONE ×2 (07:45→10:44)
[2019-01-01] MEDS ORDERED: fentaNYL citrate 100 MCG/2 ML VIAL ONE ×2 (07:46→12:43)
[2019-01-01] MEDS ORDERED: KETAMINE HCL INJ 50 MG/ML 10 ML VIAL ONE (07:54)
--- NOTE | 2019-01-01 08:01 | History & Physical Bridge Note ---
Date of Service January 01, 2019 History & Physical Bridge Note I have examined the patient, reviewed the History & Physical and in the interval since the performance of the History & Physical I have noted the following changes of clinical significance: no changes noted
[2019-01-01] MEDS ORDERED: ePHEDrine sulfate 50 MG/ML AMP IV PRN ×2 (08:37→11:56)
[2019-01-01] MEDS ORDERED: ATROPINE SULFATE 0.1 MG/ML 10ML SYR IV PRN ×2 (08:37→11:56)
[2019-01-01] MEDS ORDERED: THROMBIN 5000 UNITS KIT ONE (08:40)
[2019-01-01] MEDS ORDERED: THROMBIN FOR SOLN 20000 UNIT KIT ONE (08:47)
[2019-01-01] MEDS ORDERED: CLINDAMYCIN 600 MG in DEXTROSE 5% 50 ML IV ONE (08:51)
[2019-01-01] MEDS ORDERED: SODIUM CHLORIDE 0.9% 250 ML IV PRN (09:18)
[2019-01-01] MEDS ORDERED: SUCCINYLCHOLINE 100MG/5ML SYR ONE (09:51)
[2019-01-01] MEDS ORDERED: CISATRACURIUM BESYLATE IV SOLN 2 MG/ML 10 ML VIAL IV ONE (09:51)
[2019-01-01] MEDS ORDERED: VASOPRESSIN 20 UNIT/ML VIAL ONE (09:51)
[2019-01-01] MEDS ORDERED: LIDOCAINE HCL 2% 2 ML VIAL/AMP(20MG/ML) INFIL ONE (09:51)
[2019-01-01] MEDS ORDERED: PHENYLEPHRINE 100MCG/ML 5ML SYR ONE (09:51)
[2019-01-01] MEDS ORDERED: PROPOFOL IV EMULSION 10 MG/ML 20 ML VIAL IV ONE (09:51)
[2019-01-01 10:03] LABS: Hematocrit (blood only) 28.1 % (37-47); Hemoglobin 9.2 g/dL (12.0-16.0)
--- NOTE | 2019-01-01 10:45 | Post Operative Brief Note ---
Immediate Post Op Note v1 Date of Surgery January 01, 2019 Pre & Post Diagnosis Operation Date: 01/01/19 08:15 Pre-Op Diagnosis: Metastatic Squamous Cell carcinoma; indwelling tracheal stent Post-Op Diagnosis: Metastatic Squamous Cell carcinoma; indwelling tracheal stent Major bleeding right mainstem bronchus Procedure Operation Date: 01/01/19 08:15 Actual Procedures p Rigid and Flexible Bronchoscopy with Removal of original stent, placement of new stent into right mainstem bronchus - Manfred Ascencio MD, FACS Surgeon Manfred Ascencio MD, FACS Second Time Worker Faisal Lamar POWER CLEANER OPERATOR Estimated Blood Loss 700 Findings Consistent with Post-Op Diagnosis Drains Palmer Catheter (16fr palmer catheter placed by Marcela Leon RN, without difficulty)
[2019-01-01] MEDS ORDERED: EPINEPHrine INJ 1 MG/ML AMP ONE (11:27)
[2019-01-01] MEDS ORDERED: CLINDAMYCIN PHOS 300 MG/2 ML VIAL ONE (11:27)
[2019-01-01 11:32] LABS: iSTAT Creatinine 0.8 mg/dl (0.6-1.3); iSTAT Hemoglobin 8.2 g/dl (12.0-16.0); iSTAT Ionized Calcium 1.27 mmol/l (1.12-1.32)
[2019-01-01 11:32] LABS: iSTAT Arterial Blood Gas HCO3 28 meg/L (19-24); iSTAT Arterial Blood Gas pCO2 > 115 mmHg (35-46); iSTAT Arterial Blood Gas pH 6.96 (7.35-7.45); iSTAT Carbon Dioxide 31 mEq/l (24-31)
[2019-01-01 11:32] LABS: iSTAT Arterial Blood Gas HCO3 26 meg/L (19-24); iSTAT Arterial Blood Gas pCO2 84 mmHg (35-46); iSTAT Carbon Dioxide 29 mEq/l (24-31)
[2019-01-01 11:32] LABS: iSTAT Creatinine 0.8 mg/dl (0.6-1.3); iSTAT Hemoglobin 9.5 g/dl (12.0-16.0); iSTAT Ionized Calcium 1.25 mmol/l (1.12-1.32); iSTAT Potassium 4.5 mEq/L (3.3-5.0)
[2019-01-01] MEDS ORDERED: NOREPINEPHRINE BIT INJ 8 MG in DEXTROSE 5% 500 ML IV SCH (11:34)
--- NOTE | 2019-01-01 11:35 | Fluoroscopy Report ---
FL chest 1V frontal CLINICAL HISTORY: BRONCH WITH REMOVAL OF STENT COMPARISON STUDY: None FLUOROSCOPY TIME: 6.2 minutes NUMBER OF FLUOROSCOPIC IMAGES: 1 FINDINGS: Image intensifier was utilized for bronchoscopy and stent exchange IMPRESSION: Image intensifier support intraoperatively The above report was generated using voice recognition software. It may contain grammatical, syntax or spelling errors. Electronically signed by: Roland De La Vega M.D. 01/01/2019 11:34 AM
--- NOTE | 2019-01-01 11:56 | Anesthesiology Progress Note ---
Date of Service January 01, 2019 Pt brought to ICU 11 intubated,manually ventilated w/ 100% oxygen and monitors attached.Reprt given to ICU physician,Dr Simpson. Pt had a tracheal stent removal and right endobronchial stent insertion for endobronchial hemorrhage.Pt had left radial arterial line inserted w/o incident,blood transfused(1 unit), reintubated w/ 8.0 ETT and brought to ICU intubated. With the protestant of bleeding I felt that control of airway w/ intubation was best for ICU ongoing management,considering the gravity of her illness. Pt. had periods of hypotension and hemodynamic instability secondary to airway manipulation and hemorrhage. ABG's and labs were drawn respiratory acidosis was treated, along w/ epinephrine bolus and boluses of vasopressin. Anesthesia Post Procedure Vital Signs Vital Signs: Temp Pulse Resp BP Pulse Ox 01/01/19 11:38 34.9 C L 88 16 93/48 L 100 01/01/19 11:32 34.9 C L 90 16 88/58 L 100 01/01/19 11:15 34.9 C L 90 16 107/39 L 100 01/01/19 11:05 34.8 C L 89 16 76/55 L 100 01/01/19 07:11 37.1 C 106 H 20 146/72 H 95 Pain Intensity Right Ribs: Pain Intensity: 2 Notes Mental Status: see notes below Patient Amnestic to Procedure: Yes Nausea / Vomiting: see Notes below Pain: see Notes below Airway Patency, RR, SpO2: see Notes below BP & HR: see Notes below Hydration State: see Notes below Anesthetic Complications: see Notes below Notes: see note above.
[2019-01-01] MEDS ORDERED: LACTATED RINGER'S 1,000 ML IV ONE (12:00)
--- NOTE | 2019-01-01 12:00 | XRay Report ---
XR chest 1V portable CLINICAL HISTORY: s/p FOB post procedure COMPARISON STUDY: 11/27/2018 FINDINGS: Endotracheal tube 3 cm below the pranav. Progressive bilateral perihilar parenchymal infilt rative changes with underlying reticular nodular component. Unchanging left infrahilar masslike proce ss. IMPRESSION: 1. Endotracheal tube 3 cm both pranav. 2. Findings consistent with progressive bilateral perihilar parenchymal infiltrative change versus at ypical pulmonary edema. The above report was generated using voice recognition software. It may contain grammatical, syntax or spelling errors. Electronically signed by: Roland De La Vega M.D. 01/01/2019 11:58 AM
[2019-01-01] MEDS ORDERED: fentaNYL citrate 100 MCG/2 ML VIAL IV STA ×2 (12:42→23:13)
[2019-01-01] MEDS ORDERED: fentaNYL citrate 100 MCG/2 ML VIAL IV PRN (12:46)
[2019-01-01 13:00] LABS: iSTAT Arterial Blood Gas HCO3 25 meg/L (19-24); iSTAT Arterial Blood Gas pCO2 83 mmHg (35-46); iSTAT Arterial Blood Gas pH 7.12 (7.35-7.45); iSTAT Carbon Dioxide 27 mEq/l (24-31); iSTAT Site Art Line
[2019-01-01] MEDS ORDERED: fentaNYL DRIP 1,250 MCG/250 ML BAG IV SCH ×2 (13:00→23:45)
[2019-01-01] MEDS ORDERED: LACTATED RINGER'S 500 ML IV ONE (13:39)
--- NOTE | 2019-01-01 15:23 | Critical Care Consultation ---
Date of Consultation January 01, 2019 Assessment & Plan (1) Cancer with pulmonary metastases: Neuro- awake following commands. fentanyl as needed for comfort. CV- hypotension likely related to sedation and bleeding Pulmonary- acute hypoxic respiratory failure after bleeding for airway after stent removal. now seems to have stopped. continue vent support. titate down fio2 for sat >92%. will wean for extubation when sat and BP is better ID- no signs infection Renal-cr ok GI- start tube feeds if cannot extubate by AM Heme- anemia due to blood loss. ffollow hgb Endocrine- keep blood sugar <180 Dispo- monitor in ICU for hemodynamic and ventilatory support I have personally spent 45 minutes of critical care time in the direct management of this patient. This is a life/limb threatening event. This includes time spent evaluating patient, direct bedside care, chart review, placing orders, interpretation of diagnostic studies, discussion with consultants, patient, and/or family members regarding treatment decisions, as well as other required patient management activities. This time is exclusive of all separately billable procedures, and teaching time and separate from and in addition to any other critical care service time. History of Present Illness Attending Physician: Manfred Ascencio MD, FACS History of Present Illness 73 y/o female with a history of squamous cell carcinoma of anus with metastasis to the lung she has had multiple procedures/treatments. she had stent placed in 10/2018 and then had radiation. She was admitted today for removal of stent. in the OR she had bleeding in R mainstem bronchus with new stent placed. She became hemodynamically unstable in OR. since arrival in ICU no evidence of further bleeding. He BP has been up and down but she has responded to fluids but then came down again with sedation. She is waking up and answering simple questions. Allergies Allergy/AdvReac Type Severity Reaction Status Date / Time amoxicillin Allergy Severe SLIGHT Verified 01/01/19 07:02 TONGUE SWELLING Home Medications Home Medications Medication Instructions Recorded Confirmed Type Fiber Gummies 3 tab PO DAILY 08/19/18 01/01/19 History Symbicort 2 puff INHALATION BID 08/19/18 12/30/18 History albuterol sulfate 2 puff INHALATION QID PRN 08/19/18 01/01/19 History ibuprofen 400 mg PO QPM 08/19/18 01/01/19 History levothyroxine 88 mcg PO QAM 08/19/18 12/30/18 History prednisone 7.5 mg PO QAM 08/19/18 12/30/18 History alprazolam 0.25 mg tablet 0.25 mg PO DAILY PRN tab 12/12/18 01/01/19 History levofloxacin 500 mg tablet 500 mg PO DAILY 12/29/18 01/01/19 History Patient History Medical History Anal cancer + METS (LUNGS) S/P CHEMO/RADIATION Anemia COPD (chronic obstructive pulmonary disease) Pulmonary nodules Transverse myelitis HX (RESOLVED); AT LEAST 9+ YEARS AGO PER PCP RECORDS Asthma INHALER PRN (2X/WEEK AVERAGE); PER PATIENT, ON CHRONIC PREDNISONE 2/2 ?AUTOIMMUNE DISORDER BUT PER PCP RECORDS, SHE IS ON THIS 2/2 ASTHMA* Hypothyroidism Neuropathy CHRONIC BILATERAL FEET/HANDS 20+ YEARS Surgical History History of surgery TRACHEAL STENT= 11/17/18= MAC SEDATION AT [facility] History of bronchoscopy EBUS WITH BIOPSIES, BRONCHOSCOPY, INSERTION OF RADIOACTIVE SEED CARRIER= 08/28/18= LMA#4 IGEL History of cataract extraction with lens replacement History of colonoscopy History of herniorrhaphy History of lobectomy of lung RLL History of tonsillectomy History of vein stripping LEGS Family History Grandfather (Maternal) Family history of diabetes mellitus Family/Other Family history of diabetes mellitus Social History Preferred Language: Ukrainian Communication Ability: Effective Visual Impairment: No Limitations Talent Acquisition Administrator Required: No Beliefs That Will Affect Care: None Current Living Situation: Alone Other Information That Helps Us Care for You: No Feels Safe at Home: Yes Safety Concerns: Feels Safe At This Time Smoking Status: Former smoker Tobacco Type: cigarettes Cigarettes Per Day: HX OF 1-2 CIGARETTES PER DAY, QUIT 1 MONTH AGO. Do You Dip or Chew Tobacco: No Smoking End Date: NEVER A "HEAVY SMOKER" - OCC SMOKER - QUIT 6 MONTHS AGO Second Hand Exposure: Yes ( A CHILD - PARENTS SMOKED) Hx Alcohol Use: No Hx Substance Use: No Review of Systems Review of Systems: Unobtainable due to endotracheal tube Physical Exam Physical Exam: Constitutional: Comfortable NAD intubated no blood in ET currently HEENT: normocephalic atraumatic. MMM. no cervical lymphadenopathy CV: RRR nl s1,s2 no murmurs rubs or gallops Lungs: clear to auscultation bilaterally. no accessory muscle use Abd: soft nontender nondistended. normal bowel sounds Ext: no edema. no cyanosis, no clubbing Skin: warm dry Neuro: answering simple questions. moving all extremities Results & Data Vital Signs (Past 12 Hours) Vital Signs Temp Pulse Pulse Resp BP BP Pulse Ox 01/01/19 13:11 100 H 104/49 L 94 01/01/19 13:06 99 H 105/46 L 95 01/01/19 13:01 86 87/48 L 96 01/01/19 13:00 82 96 01/01/19 12:58 91 H 16 96 01/01/19 12:56 84 91/51 L 96 01/01/19 12:55 88 86/52 L 96 01/01/19 12:53 90 75/47 L 95 01/01/19 12:52 92 H 60/45 L 95 01/01/19 12:46 100 H 125/57 L 98 01/01/19 12:45 102 H 98 01/01/19 12:41 96 H 111/51 L 97 01/01/19 12:36 100 H 111/50 L 97 01/01/19 12:31 103 H 128/63 98 01/01/19 12:30 99 H 99 01/01/19 12:26 101 H 124/65 99 01/01/19 12:21 96 H 138/51 L 99 01/01/19 12:18 89 100 01/01/19 12:16 90 133/54 L 100 01/01/19 12:02 16 01/01/19 11:45 91 H 16 100 01/01/19 11:38 34.9 C L 88 16 93/48 L 100 01/01/19 11:32 34.9 C L 90 16 88/58 L 100 01/01/19 11:15 34.9 C L 90 16 107/39 L 100 01/01/19 11:05 34.8 C L 89 16 76/55 L 100 01/01/19 07:11 37.1 C 106 H 20 146/72 H 95 Laboratory Results Laboratory Results - last 24 hr 01/01/19 01/01/19 01/01/19 09:19 09:54 10:22 Hgb 9.2 L POC Hgb Hct 28.1 L POC Hct Sample Site POC pH 6.96 L* POC pCO2 > 115 H POC pO2 79 L POC HCO3 28 H POC Total CO2 31 POC Base Excess -4.0 POC ABG O2 Sat 84.0 L José Miguel Test POC Sodium POC Potassium POC Chloride POC Anion Gap POC BUN POC Creatinine POC Glucose (other) POC Ioniz Calcium Laura Nasal Screen MRSA (PCR) Blood Type O Positive Antibody Screen NEGATIVE Crossmatch See Detail 01/01/19 01/01/19 01/01/19 10:28 10:50 10:56 Hgb POC Hgb 8.2 L 9.5 L Hct POC Hct 24 L 28 L Sample Site POC pH 7.10 L* POC pCO2 84 H POC pO2 114 H POC HCO3 26 H POC Total CO2 28 29 28 POC Base Excess -3.0 POC ABG O2 Sat 96.0 H José Miguel Test POC Sodium 142 140 POC Potassium 4.0 4.5 POC Chloride 105 106 POC Anion Gap 13.0 L 12.0 L POC BUN 18 18 POC Creatinine 0.8 0.8 POC Glucose (other) 174 H 184 H POC Ioniz Calcium Laura 1.27 1.25 Nasal Screen MRSA (PCR) Blood Type Antibody Screen Crossmatch 01/01/19 01/01/19 11:36 12:47 Hgb POC Hgb Hct POC Hct Sample Site Art Line POC pH 7.12 L* POC pCO2 83 H POC pO2 152 H POC HCO3 25 H POC Total CO2 27 POC Base Excess -3.0 POC ABG O2 Sat 97.0 H José Miguel Test NA POC Sodium POC Potassium POC Chloride POC Anion Gap POC BUN POC Creatinine POC Glucose (other) POC Ioniz Calcium Laura Nasal Screen MRSA (PCR) Negative Blood Type Antibody Screen Crossmatch Diagnostic Findings XR chest 1V portable CLINICAL HISTORY: s/p FOB post procedure COMPARISON STUDY: 11/27/2018 FINDINGS: Endotracheal tube 3 cm below the pranav. Progressive bilateral perihilar parenchymal infiltrative changes with underlying reticular nodular component. Unchanging left infrahilar masslike process. IMPRESSION: 1. Endotracheal tube 3 cm both pranav. 2. Findings consistent with progressive bilateral perihilar parenchymal infiltrative change versus atypical pulmonary edema. The above report was generated using voice recognition software. It may contain grammatical, syntax or spelling errors. Electronically signed by: Roland De La Vega M.D. 01/01/2019 11:58 AM
[2019-01-01] MEDS ORDERED: ONDANSETRON INJ 2 MG/ML 2 ML VIAL ONE ×2 (17:44→23:15)
[2019-01-01] MEDS ORDERED: ONDANSETRON INJ 2 MG/ML 2 ML VIAL IV STA ×2 (17:46→23:14)
[2019-01-01] MEDS: SODIUM CHLORIDE 0.45 % 1,000 ML IV SCH (19:29)
[2019-01-01 20:31] VITALS: TEMP 99
--- NOTE | 2019-01-01 21:07 | Progress Note ---
DATE: 01/01/2019 It is now about 7:00 p.m. in the evening after our bronchoscopy with massive hemoptysis. 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 Saturations dropped into the 70s and I thought that she may arrest; however, she settled down and has really not coughed much in the last 2 to 2-1/2 hours. Her saturations are low in the high 90s on 10 liters; however, it requires her not to cough. I had a long discussion with the patient and her family in great detail. We do not have anything to offer Dr. Crowley. 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 We have a covered stent there now, but I do not expect this to be a long lasting solution. I was hoping that we may get some time, so she can be discharged from the hospital; however, it appeared to me that was not going to occur today after she coughed up so much blood and desaturated; however, she has settled down. The problem is, she has blood in her airways and we have no real way of getting it out. I bronchoscoped her repeatedly today when she was bleeding and I was able to clean out her left side, but cleaning on her right side was extremely difficult. This is due to the fact of her stents in place. We have dislodged the stent trying to clean this blood out before because it is occluding her lower lobe and middle lobe segments. In any rate, I was not unhappy with her chest x-ray based on the findings in the operating room. At any rate, she is awake, alert, making urine. Hemodynamically, she is stable off of all inotropes but her sats are low. We are not going to reintubate her nor are we are going to resuscitate her. We discussed this and the patient has been given last rites by her metal fabricator welder and is "quite tired." We will continue our comfort measures. NANY
--- NOTE | 2019-01-01 22:33 | Operative Report ---
DATE OF OPERATION: 01/01/2019 PREOPERATIVE DIAGNOSES: 1. Indwelling tracheal stent. 2. Metastatic squamous cell carcinoma of the anus to the lungs and right hilum including trachea and right mainstem bronchus. POSTOPERATIVE DIAGNOSES: 1. 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 2. Indwelling tracheal stent. 3. Metastatic squamous cell carcinoma of the anus. PROCEDURE: 1. Flexible bronchoscopy with removal of tracheal stent. 2. Control of massive bleeding. Right bronchus intermedius with apparent fistula from the pulmonary artery by deployment of a 10 mm x 30 mm covered stent from [employer] retargeting. 3. Insertion of a new 10 mm x 30 mm covered bronchial stent right mainstem bronchus with removal of first stent. SURGEON: Manfred Ascencio MD HAND MOLDER: Dong Lamar, respiratory therapy. ANESTHESIA: General anesthesia with endotracheal intubation. INDICATIONS FOR PROCEDURE AND FINDINGS: Shantell Crowley is a long time patient of mine who was diagnosed several years ago to have metastatic squamous cell carcinoma of her anus. She underwent primary radiation therapy and did well with that; however, she developed pulmonary metastases which were treated by radiofrequency catheter ablation as well as a sterotactic body radiation. I met her 2 years ago when she was found to have a mass in her right upper lobe which was growing. We did a bronchoscopy and a biopsy and this appeared to be an adenocarcinoma and in 04/2017 I took the patient to the operating room and performed a robot-assisted thoracoscopic right upper lobectomy. It turned out she had metastatic squamous cell carcinoma, in fact had microscopic disease in the bronchus. The patient has done remarkably well since this. She really has had no symptoms; however, she has had a growing cancers in both lungs and was evaluated at [facility]. It was felt they would hold off therapy last fall given her lack of symptoms. I saw the patient rather frequently and she began having problems breathing in the late fall of 2017 and was found to have significant narrowing of the right bronchus intermedius below our right upper lobe bronchial stump. We set her up for brachytherapy and she actually did quite well with this. The stenosis improved quite dramatically and we were quite happy with that; however, a couple of months later, the patient developed marked narrowing of the trachea and was markedly symptomatic. In 10/2018 I took her to the operating room and performed insertion of a tracheal stent. This worked very well Mrs. Crowley. She underwent radiation therapy by Dr. Layne and Dr. Rosado and they have finished her course of radiation. We felt it was time for the stent to be removed and I set this up with the patient and today on 01/01/2019 the patient underwent an intubation initially with laryngeal mask airway and I was able to easily grasp the tracheal stent. By pulling on the draw strain we then were able to remove it and we delivered it off the field. Going back in with the bronchoscope I was able to see that the tracheal side had some oozing, but I irrigated this out with some cold saline and this cleared up quite nicely. I also suctioned out the left and the right and I was quite pleased, however, there was a bit more bleeding coming from the right lower bronchus intermedius and upon close inspection it could be seen that there was a pumping vessel which was superior lateral below the takeoff of the right upper lobe bronchus. I used iced saline and then epinephrine injections and then I used thrombin. This slowed this, but did not stop this. I then placed a Janusz balloon and I inflated this to control the bleeding. This worked but was only temporizing. Every time we deflate this we would have more hemorrhage. I then used a cryoprobe and attempted to freeze this; however, the bleeding became quite significant. In fact, it appeared that the patient may exsanguinate. I inserted the Janusz balloon again and blew it up and this stopped the bleeding. I then got a stent ready. It was a partially covered stent. It was a 10 x 30 after I measured this. I then went through past the area with a guidewire and under fluoroscopy and marked the proximal distal right mainstem bronchus. I then placed a stent over this and deployed it and the bleeding stopped. I was quite pleased with this because I was able to remove all of the blood and there was cast of thrombus in the left and right bronchial trees, I completely cleaned out the left and I was quite happy with the appearance of the trachea. There was no further bleeding. However, the patient had marked thrombotic occlusion of the basilar and middle lobe bronchi. I went through the stent and suctioned this out. I used a cryoprobe in an attempt to free these clots and remove them and also used forceps. They were quite difficult to get out; however, another problem we had was that the stent was migrating distally. I pulled this out a few times and then the patient began bleeding in aly. She completely filled her airways with the blood. I could not see the stent, pulled it back more proximally. Finally used fluoroscopy, I was able to get a grasper and under fluoroscopy, I was able to grasp this stent and pull it forward; however, it popped back into the trachea. I could not get it to go back. I was quite concerned because the patient was in extremis. The blood pressure was 40 and we were unable to ventilate her and could not get end-tidal CO2. For this reason, I quickly went back down through the bronchoscope under fluoroscopy and put the guidewire back across this area. I then placed another stent which actually went through the original stent which was in the trachea. I then deployed the stent and the bleeding stopped. I went back and removed the prior stent. I completely suctioned out the left side. I suctioned out as much of the right as I could, but I was very concerned, however, I did not want to dislodge the stent again. At this point, we elected to proceed with termination of the case and the patient actually stabilized. At the time she left the OR she was off of all vasopressor. Her tidal volumes and improved. She woke up in the ICU and was able to be extubated later in the day. I was quite concerned about the patient arresting on the table and felt quite pleased that we were able to pull her through this. I attest to the content of the Intraoperative Record and any orders documented therein. Any exception s are noted below.
[2019-01-01] MEDS ORDERED: MoRPHine SULFATE 2 MG/ML CARP IV STA (22:57)
--- NOTE | 2019-01-01 22:59 | Critical Care Progress Note ---
Date of Service January 01, 2019 Assessment & Plan (1) Cancer with pulmonary metastases: Neuro- awake following commands. fentanyl as needed for comfort. CV- hypotension likely related to sedation and bleeding Pulmonary- acute hypoxic respiratory failure after bleeding for airway after stent removal. now seems to have stopped. continue vent support. titate down fio2 for sat >92%. will wean for extubation when sat and BP is better ID- no signs infection Renal-cr ok GI- start tube feeds if cannot extubate by AM Heme- anemia due to blood loss. ffollow hgb Endocrine- keep blood sugar <180 Dispo- monitor in ICU for hemodynamic and ventilatory support I have personally spent 45 minutes of critical care time in the direct management of this patient. This is a life/limb threatening event. This includes time spent evaluating patient, direct bedside care, chart review, plac ing orders, interpretation of diagnostic studies, discussion with consultants, patient, and/or family members regarding treatment decisions, as well as other required patient management activities. This time is exclusive of all separately billable procedures, and teaching time and separate from and in addition to any other critical care service time. Subjective At approximately 10:45 PM, the patient was noted to have significant terrie hemoptysis. Nursing staff did tell me. I present at bedside the patient was having multiple episodes of terrie hemoptysis which was being suctioned with Yankauer. She did drop her oxygen saturations into the 70s on a nonrebreather. I had an extensive discussion with the patient. She remains adamant that she would not wish to be reintubated as she does not wish to prolong the inevitable. I did suggest that this point, she is terminal state without chance for meaningful recovery. Even if she were to recover from this insult, the patient is still currently struggling with her cancer diagnosis. She had previously had a discussion with Dr. Ascencio and her family. She does not wish to proceed with heroic measures further at this time. At this point, I did reach out to Dr. Ascencio. He reports that he will contact her daughter and present to bedside immediately. Patient was offered pain medication which she accepted. She was treated with fentanyl. After Dr. Robles presents at bedside, the patient does wish to be more comfortable at this time. After discussion with the patient and with Dr. Ascencio, we will focus goals of care towards comfort measures only. I did stress the patient that if we proceed with fentanyl drip for pain control and respiratory difficulty that mental status will likely decline and she will be unable to communicate with family members and friends. Despite this, she does not wish for me to contact any other family at this time. She is comfortable with proceeding with comfort measures only at this point. Orders were placed appropriately. We will continue to assess needs as needed. I have personally spent 35 minutes of critical care time in the direct manageme nt of this patient. This is a life/limb threatening event. This includes time spent evaluating patient, direct bedside care, chart review, placing orders, interpretation of diagnostic studies, discussion with consultants, patient, and family members, as well as other required patient management activities. This time is exclusive of all separately billable procedures, and teaching time and separate from and in addition to any other critical care service time. Results & Data Vital Signs (Past 12 Hours) Vital Signs Temp Pulse Pulse Resp BP BP Pulse Ox 01/01/19 22:00 91 H 20 109/44 L 97 01/01/19 21:00 95 H 20 107/44 L 97 01/01/19 20:00 37.2 C 99 H 20 113/52 L 91 01/01/19 19:00 102 H 18 102/60 92 01/01/19 18:31 101 H 20 110/53 L 90 01/01/19 18:00 97 H 20 111/46 L 87 L 01/01/19 17:31 107 H 107/50 L 82 L 01/01/19 17:30 105 H 24 79 L 01/01/19 17:16 106 H 24 100/58 L 86 L 01/01/19 17:01 106 H 24 107/54 L 92 01/01/19 17:00 104 H 20 93 01/01/19 16:46 108 H 118/55 L 85 L 01/01/19 16:30 106 H 129/58 L 90 01/01/19 16:16 101 H 20 119/59 L 95 01/01/19 16:00 99 H 21 106/52 L 95 01/01/19 15:46 98 H 99/51 L 96 01/01/19 15:40 100 H 97 01/01/19 15:31 101 H 22 93/57 L 96 01/01/19 15:30 100 H 96 01/01/19 15:21 100 H 20 114/60 95 01/01/19 15:20 101 H 94 01/01/19 15:11 94 H 20 114/59 L 95 01/01/19 15:10 96 H 95 01/01/19 15:00 97 H 23 115/57 L 98 01/01/19 14:56 96 H 110/51 L 99 01/01/19 14:51 90 105/56 L 99 01/01/19 14:50 93 H 99 01/01/19 14:46 96 H 109/51 L 98 01/01/19 14:41 93 H 118/60 98 01/01/19 14:40 97 H 98 01/01/19 14:36 92 H 120/56 L 98 01/01/19 14:31 90 104/47 L 98 01/01/19 14:30 93 H 98 01/01/19 14:26 89 102/51 L 98 01/01/19 14:21 89 100/45 L 98 01/01/19 14:20 92 H 97 01/01/19 14:16 92 H 109/48 L 97 01/01/19 14:11 91 H 92/42 L 97 01/01/19 14:10 92 H 97 01/01/19 14:06 93 H 107/49 L 97 01/01/19 14:01 93 H 98/51 L 96 01/01/19 14:00 97 H 96 01/01/19 13:56 97 H 93/50 L 96 01/01/19 13:51 97 H 100/50 L 96 01/01/19 13:50 102 H 95 01/01/19 13:46 101 H 96/53 L 95 01/01/19 13:41 103 H 82/47 L 94 01/01/19 13:40 102 H 94 01/01/19 13:36 103 H 104/49 L 94 01/01/19 13:31 103 H 91/53 L 94 01/01/19 13:30 103 H 95 01/01/19 13:26 103 H 83/52 L 94 01/01/19 13:21 100 H 98/48 L 94 01/01/19 13:20 101 H 95 01/01/19 13:16 99 H 101/53 L 95 01/01/19 13:11 100 H 104/49 L 94 01/01/19 13:10 99 H 104/49 L 95 01/01/19 13:06 99 H 105/46 L 95 01/01/19 13:01 86 87/48 L 96 01/01/19 13:00 82 96 01/01/19 12:58 91 H 16 96 01/01/19 12:56 84 91/51 L 96 01/01/19 12:55 88 86/52 L 96 01/01/19 12:53 90 75/47 L 95 01/01/19 12:52 92 H 60/45 L 95 01/01/19 12:50 93 H 105/46 L 96 01/01/19 12:46 100 H 125/57 L 98 01/01/19 12:45 102 H 98 01/01/19 12:41 96 H 111/51 L 97 01/01/19 12:40 97 H 111/51 L 97 01/01/19 12:36 100 H 111/50 L 97 01/01/19 12:31 103 H 128/63 98 01/01/19 12:30 99 H 99 01/01/19 12:26 101 H 124/65 99 01/01/19 12:21 96 H 138/51 L 99 01/01/19 12:20 96 H 99 01/01/19 12:18 89 100 01/01/19 12:16 90 133/54 L 100 01/01/19 12:02 16 01/01/19 11:45 91 H 16 100 01/01/19 11:38 34.9 C L 88 16 93/48 L 100 01/01/19 11:32 34.9 C L 90 16 88/58 L 100 01/01/19 11:15 34.9 C L 90 16 107/39 L 100 01/01/19 11:05 34.8 C L 89 16 76/55 L 100
[2019-01-02] MEDS: fentaNYL DRIP 1,250 MCG/250 ML BAG IV SCH ×3 (00:03→12:10)
[2019-01-02 01:15] VITALS: BP 107/51; PULSE 96; O2SAT 77
--- NOTE | 2019-01-02 08:10 | Critical Care Progress Note ---
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 Subjective patient extubated yesterday goals of care now for comfort Physical Exam Physical Exam: comfortable NAD Results & Data Vital Signs (Past 12 Hours) Vital Signs Pulse Resp BP Pulse Ox 01/02/19 01:00 96 H 77 L 01/02/19 00:00 102 H 75 L 01/01/19 23:08 106 H 107/51 L 80 L 01/01/19 23:01 110 H 126/59 L 77 L 01/01/19 23:00 110 H 77 L 01/01/19 22:45 114 H 76 L 01/01/19 22:00 91 H 20 109/44 L 97 01/01/19 21:00 95 H 20 107/44 L 97
[2019-01-02] MEDS: SODIUM CHLORIDE 0.45 % 1,000 ML IV SCH (08:46)
--- NOTE | 2019-01-02 14:27 | Progress Note ---
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 She is awake and arousable, but her saturations remain quite low. She and I have had multiple discussions over the last 24 hours. I have discussed this with her family including her daughter Magdalene and we are going to offer her comfort measures only. We have discontinued the monitor, but she is on a fentanyl drip, which I would like to continue as she is complaining of pain in her mid sternal area. She is a do not resuscitate, do not intubate status as of now. We will keep her as comfortable as possible.
--- NOTE | 2019-01-05 03:26 | Discharge Summary ---
DISCHARGE DIAGNOSES: 1. Respiratory failure. 2. 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 3. 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 I have been following Dr. Crowley for over 2 years. She was diagnosed with metastatic squamous cell carcinoma of the anus. She is initially diagnosed as having a squamous cell carcinoma of the anus about 5 years ago and underwent radiation therapy primarily. She recurred in her lungs with 2 lesions on the right and one on the left. These were treated with sterotactic body irradiation as well as a radiofrequency catheter ablation. I saw her about 2 years ago when she had a mass in her right upper lobe. We felt this was probably metastatic, however, it grew very quickly over the course of the summer and she was symptomatic with a cough. The rest of her lesions did not grow and I did an endobronchial ultrasound with biopsy as well as a navigational bronchoscopy and it appeared to be an adenocarcinoma. In 04/2017, I performed a robotic assisted thoracoscopic right upper lobectomy. There are some issues with some bleeding, but she settled down and actually tolerated this procedure quite well. The final pathology showed this to be metastatic squamous cell carcinoma from her anus. Over the course of the next year and a half or so, I followed Carline very closely. Her lesions grew in her lung and she got new lesions; however, she was remarkably free of symptoms. She sought a second opinion at our urging at [facility] and they felt that the prognosis from metastatic squamous cell carcinoma of the anus is so poor that she has done remarkably well and they did not recommend treatment at that time. About 07/2018, the patient developed marked dyspnea on exertion and CT showed marked narrowing of the bronchus intermedius. This was picked up by her underground bolting machine operator, Dr. Dong Emmanuel. After a long discussion at our multidisciplinary cancer conferences and in consultation with Dr. Jimbo Layne and Dr. Shannan Rosado from radiation oncology, we elected to proceed with brachytherapy. This was performed over July and August and this was completed on 09/18/2018. The patient actually did well for a couple of months and I would see her regularly; however, she suddenly became quite short of breath and we did another CT scan and while she had responded nicely radiographically and clinically to the brachytherapy in her bronchus intermedius, she now had a tumor growth on the right side of her trachea compressing her trachea. On 11/17/2018, I placed a tracheal stent. She improved, although she did have a cough. We had a long discussion about this and Dr. Layne and Alonzo's felt that while we were reaching our limits on radiation they could radiate her trachea. This was completed recently and she was coughing up quite a bit of sputum and upon evaluation, I felt that this is probably due to her stent and felt that it should come out. I removed the stent under a laryngeal mask airway with general anesthesia on 01/01/2019. This went without incident. I thought her trachea looked very good. It was widely patent. Of course, she had some areas that were a bit excoriated along the tracheal surface, but I was quite pleased. I also pleased with how open her bronchus intermedius was and her left side looked fine. After cleaning all this out I noted a bit of bleeding coming from the bronchus intermedius. This was well below our tracheal stent and in fact was below our bronchial stump on the right from the upper lobe resection in 2017. It could be seen that there was pulsation under this and this appeared to be over the pulmonary artery. I attempted several maneuvers to try to stop this including injecting cold saline and epinephrine. I then used a cryoprobe and attempt to freeze this; however, this made the bleeding worse. I was quite concerned about this and then placed a balloon and inflated this to stop the bleeding. At this point, I realized we had a fistula from the pulmonary artery to the bronchus intermedius. This is the area we had done the brachytherapy before. I was quite concerned about this because we do not have a good therapy for this. I had previously had multiple discussions with the patient and she realized that she had metastatic disease and was not going to survive it as we really did not have a good treatment for it, although we had discussed possible reinstitution of systemic therapy with Dr. Byron Hogan. At any rate, I then decided to insert a covered stent into the bronchus intermedius. This was done and this 10 x 30 mm stent worked very nicely. I was quite happy with it and the bleeding had stopped. At this point, I used my flexible bronchoscope through the endotracheal tube which had been placed and suctioned her out quite nicely except for the fact that she had fresh clot which was occluding her middle lobe and her lower lobe bronchii on the right. I went through the stent gently with a pediatric scope and attempted to remove this and was able to remove much of the clot and I was quite pleased with the way it looked. However, the stent migrated down a bit under this manipulation and then she started bleeding tremendously. This was a dire moment in the operating room as we could not see anything. The patient was a Do Not Resuscitate and I contemplating stopping here, but in a last ditch effort, I placed a wire under fluoroscopic guidance as we could not see anything due to the bleeding and got it back down into the bronchus intermedius and I inserted another stent fluoroscopically. I had removed the dislodged stent which was in the trachea. This stopped the bleeding. I then suctioned out her left side and her trachea and the stent itself, but I did not go back down into it for fear of dislodging it again. The patient was then stabilized. Her oxygen saturation and end tidal CO2 and her blood pressure all improved and we moved her to the intensive care unit. We are able to get the patient extubated a few hours later and I was quite pleased. It was at this point that I explained to the patient and her family quite carefully that she had a fistula and we did not have a treatment for it. She understood. We had discussed this in quite detail over the last few months because Dr. Crowley had asked me quite frankly how I thought the end would come and I told her I thought that either an erosion of the tumor into the airway with respiratory failure or an artery fistulizing into her airway would be her ultimate demise. Having said that, this did not come as a surprise. The patient was lucid and stated she did not want anything further done. She did not want to suffer, however, and we put her on a fentanyl drip. She saw her family. We had multiple discussions and she was quite comfortable. She slept most of the following day, although woke up to see visitors until the last few hours and she became more somnolent. It should be noted, we could not get her saturations above the mid 80s and most of the time they were in the 70s and it dropped down into the 60s and 50s prior to her demise. The patient quite serenely and was pronounced at 4:35 p.m. I discussed this in detail with the patient's daughter, Magdalene. In retrospect in further discussions with the patient in the intensive care unit, she tells me that she had been coughing up some dark blood for the last 4-5 days, but "did not mention it because I knew I was going to have a bronchoscopy." The patient had a fistula between her pulmonary artery and bronchus intermedius which was not near her stent at all. I believe that she was probably bleeding from it before we started and I believe that the simple manipulation with the bronchoscope cause this fistula to manifest itself in a more pronounced fashion. Placing the stent and attempting to control the bleeding initially made it much worse, but the stent did stop the bleeding. One of the reasons for the patient's demise I believe is the fact that she had blood in her airway that we could not get out. In the evening after surgery after she had been extubated for a few hours, she coughed and then coughed up a large amount of blood and was hemorrhaging and I felt she may there, but she stopped. I told her quite frankly that the stent was a temporizing measure and while I hope it would temporize her for a few more weeks. She made it quite clear she did not want anything else done. NANY
== END 2019-01-02 17:55 | disposition expired | DRG 163 ==
LOC: ASU 06:43 → 1E 10:46